=== PATIENT | female | born 1985 | race Caucasian/White ===

== ENCOUNTER 2016-10-09 11:06 | Emergency (ER) | payer BC ==
[~2016-10-09] VITALS: Ht 170.2 cm; Wt 84.3 kg
[~2016-10-09 11:06] MED LIST: BUPR300T59 PO; MESA800T PO; OXYC1TAB11 PO
[2016-10-09 11:09] VITALS: Ht 170.2 cm; Wt 84.3 kg
--- OUTSIDE RECORDS SUMMARY | 2016-10-09 11:11 | XMS REPORT ---
Author Author [place]/[facility], Via [facility] - Organization Unknown Address Unknown Phone Unavailable Allergies, Adverse Reactions, Alerts * Dilaudid causes Moderate Hysterical (crazy) reaction. * peanut (as Food allergen) causes Adverse Reaction. * peanut causes Adverse Reaction. * ibuprofen causes Adverse Reaction. * No Latex Allergy. * No IV Contrast Allergy. Problems * Abdominal Pain* Status:Active. * Fluid Volume Disorder* Status:Active. * Knowledge Low Level* Status:Active. Procedures No relevant procedures performed. Medication Medication reconciliation has not been performed. Results LAB--BEDSIDE TESTING from 03/28/2013 1:46 PMPregnancy Screen, Urine NPT Negative LAB--CHEMISTRY from 03/28/2013 1:39 PMAnion Gap 8 (3-20 ) Albumin 4.2 g/dL (3.5-4.8 g/dL) Alkaline Phosphatase 72 U/L (26-104 U/L) ALT (SGPT) 22 U/L (14-54 U/L) AST (SGOT) 17 U/L (15-41 U/L) Bilirubin Total 0.7 mg/dL (0.2-1.2 mg/dL) BUN 5 mg/dL (4-20 mg/dL) Calcium 9.6 mg/dL (8.6-10.0 mg/dL) Chloride 106 mEq/L (99-109 mEq/L) CO2 23 mEq/L (22-32 mEq/L) Creatinine 0.79 mg/dL (0.44-1.03 mg/dL) eGFR >60 (>60- ) Globulin 3.1 g/dL (1.9-4.3 g/dL) Glucose 93 mg/dL (70-100 mg/dL) Potassium 3.8 mEq/L (3.6-5.1 mEq/L) Sodium 137 mEq/L (136-144 mEq/L) Protein 7.3 g/dL (6.1-7.9 g/dL) Lipase 29 U/L (8-48 U/L) LAB--HEMATOLOGY from 03/28/2013 1:39 PMAbsolute Basophils 0.02 THOUS (0.00-0.20 THOUS) Absolute Eosinophils 0.27 THOUS (0.00-0.50 THOUS) Absolute Lymphocytes 2.66 THOUS (0.80-3.30 THOUS) Absolute Monocytes 0.39 THOUS (0.30-1.00 THOUS) Absolute Neutrophils 5.91 THOUS (1.90-7.00 THOUS) HCT 41.6 % (37.0-47.0 %) HGB 13.9 g/dl (12.0-16.0 g/dl) MCH 28.5 pg (27.0-32.0 pg) MCHC 33.4 g/dL (32.0-36.0 g/dL) MCV 85.2 fL (82.0-99.0 fL) MPV 9.4 fL (9.4-12.4 fL) Platelet Count 350 K/uL (150-400 K/uL) RBC 4.88 M/uL (4.00-5.20 M/uL) RDW 14.8 % H (11.5-14.5 %) WBC 9.3 K/uL (4.8-10.8 K/uL) Basophils 0 % (0-2 %) Eosinophils 3 % (0-4 %) Immature Granulocytes 0.1 % (0.0-1.0 %) Lymphocytes 29 % (20-46 %) Monocytes 4 % (4-11 %) Nucleated RBC Automated 0.0 /100 WBC (0 /100 WBC) Neutrophils 64 % (51-75 %) LAB--URINE TESTS from 03/28/2013 1:39 PMAppearance Clear Bilirubin Negative (Negative ) Blood Negative (Negative ) Color Lt Yellow Glucose Negative (Negative ) Ketones, Urine Negative (Negative ) Leukocytes Esterase Pos 1+ A (Negative ) Nitrites Negative (Negative ) pH, Urine 5.0 (5.0-8.0 ) Protein Negative (Negative ) Specific [place] 1.015 (1.003-1.030 ) Collection Type: Clean Catch Urobilinogen Negative mg/dL (-<1.0 mg/dL) Bacteria Rare Epithelial Cells 5-10 /HPF Mucus Present RBC 0-2 /HPF (0-2 /HPF) WBC 2-5 /HPF (0-4 /HPF)
--- OUTSIDE RECORDS SUMMARY | 2016-10-09 11:11 | XMS REPORT ---
Author Author [place]/[facility], Via [facility] - Organization Unknown Address Unknown [...] Status:Active. Procedures No relevant procedures performed. Medication It is the responsibility of the patient or patient outside dealer sales representative to confirm the list of medications with either the patient's personal care provider or the patient's follow-up care provider to ensure the patient has an appropriate list of medications to take at home. Discharge medications* HYDROcodone-acetaminophen 5 mg-500 mg Tablet, Ordered By : Nader Farris Directions: 1-2 TABS oral every four hours PRN PAIN Additional Instructions: USE FIRST * predniSONE 20 mg Tablet, Ordered By: Nader Farris Directions: 3 tablets oral daily every morning * regular diet * activity as tolerated * Follow up with Dr. Pedraza next on 02/14/2013 * No driving while on narcotics Stopped medications* None Results LAB--CHEMISTRY from 02/02/2013 6:30 AMAnion Gap 11 (3-20 ) Albumin 2.7 g/dL L (3.5-4.8 g/dL) BUN 4 mg/dL (4-20 mg/dL) Calcium 8.4 mg/dL L (8.6-10.0 mg/dL) Chloride 102 mEq/L (99-109 mEq/L) CO2 22 mEq/L (22-32 mEq/L) Creatinine 1.15 mg/dL H (0.44-1.03 mg/dL) eGFR 56 A (>60- ) Glucose 99 mg/dL (70-100 mg/dL) Potassium 3.2 mEq/L L (3.6-5.1 mEq/L) Magnesium 1.7 mg/dL L (1.8-2.5 mg/dL) Sodium 135 mEq/L L (136-144 mEq/L) Phosphorus 3.9 mg/dL (2.4-4.7 mg/dL) LAB--CHEMISTRY from 02/03/2013 6:01 AMAnion Gap 7 (3-20 ) Albumin 2.3 g/dL L (3.5-4.8 g/dL) BUN 3 mg/dL L (4-20 mg/dL) Calcium 8.0 mg/dL L (8.6-10.0 mg/dL) Chloride 104 mEq/L (99-109 mEq/L) CO2 22 mEq/L (22-32 mEq/L) Creatinine 0.97 mg/dL (0.44-1.03 mg/dL) eGFR >60 (>60- ) Glucose 92 mg/dL (70-100 mg/dL) Potassium 3.2 mEq/L L (3.6-5.1 mEq/L) Magnesium 1.9 mg/dL (1.8-2.5 mg/dL) Sodium 133 mEq/L L (136-144 mEq/L) Phosphorus 2.7 mg/dL (2.4-4.7 mg/dL) LAB--CHEMISTRY from 02/04/2013 5:02 AMAnion Gap 9 (3-20 ) Albumin 2.3 g/dL L (3.5-4.8 g/dL) BUN 1 mg/dL L (4-20 mg/dL) Calcium 8.0 mg/dL L (8.6-10.0 mg/dL) Chloride 102 mEq/L (99-109 mEq/L) CO2 23 mEq/L (22-32 mEq/L) Creatinine 0.86 mg/dL (0.44-1.03 mg/dL) eGFR >60 (>60- ) Glucose 108 mg/dL H (70-100 mg/dL) Potassium 3.4 mEq/L L (3.6-5.1 mEq/L) Magnesium 2.0 mg/dL (1.8-2.5 mg/dL) Sodium 134 mEq/L L (136-144 mEq/L) Phosphorus 2.4 mg/dL (2.4-4.7 mg/dL) LAB--HEMATOLOGY from 02/02/2013 6:30 AMHCT 35.2 % L (37.0-47.0 %) HGB 11.5 g/dl L (12.0-16.0 g/dl) MCH 27.2 pg (27.0-32.0 pg) MCHC 32.7 g/dL (32.0-36.0 g/dL) MCV 83.2 fL (82.0-99.0 fL) MPV 9.9 fL (9.4-12.4 fL) Platelet Count 276 K/uL (150-400 K/uL) RBC 4.23 M/uL (4.00-5.20 M/uL) RDW 13.4 % (11.5-14.5 %) WBC 17.3 K/uL H (4.8-10.8 K/uL) LAB--HEMATOLOGY from 02/03/2013 6:01 AMHCT 31.1 % L (37.0-47.0 %) HGB 10.1 g/dl L (12.0-16.0 g/dl) MCH 27.2 pg (27.0-32.0 pg) MCHC 32.5 g/dL (32.0-36.0 g/dL) MCV 83.6 fL (82.0-99.0 fL) MPV 9.4 fL (9.4-12.4 fL) Platelet Count 249 K/uL (150-400 K/uL) RBC 3.72 M/uL L (4.00-5.20 M/uL) RDW 13.6 % (11.5-14.5 %) WBC 16.6 K/uL H (4.8-10.8 K/uL) LAB--HEMATOLOGY from 02/04/2013 5:02 AMHCT 32.8 % L (37.0-47.0 %) HGB 10.6 g/dl L (12.0-16.0 g/dl) MCH 26.6 pg L (27.0-32.0 pg) MCHC 32.3 g/dL (32.0-36.0 g/dL) MCV 82.4 fL (82.0-99.0 fL) MPV 9.1 fL L (9.4-12.4 fL) Platelet Count 268 K/uL (150-400 K/uL) RBC 3.98 M/uL L (4.00-5.20 M/uL) RDW 13.3 % (11.5-14.5 %) WBC 18.2 K/uL H (4.8-10.8 K/uL) LAB--HEMATOLOGY from 02/05/2013 1:35 PMHCT 30.1 % L (37.0-47.0 %) HGB 10.0 g/dl L (12.0-16.0 g/dl) MCH 27.2 pg (27.0-32.0 pg) MCHC 33.2 g/dL (32.0-36.0 g/dL) MCV 81.8 fL L (82.0-99.0 fL) MPV 9.0 fL L (9.4-12.4 fL) Platelet Count 271 K/uL (150-400 K/uL) RBC 3.68 M/uL L (4.00-5.20 M/uL) RDW 13.6 % (11.5-14.5 %) WBC 13.6 K/uL H (4.8-10.8 K/uL) LAB--HEMATOLOGY from 02/06/2013 5:20 AMHCT 29.3 % L (37.0-47.0 %) HGB 9.7 g/dl L (12.0-16.0 g/dl) MCH 27.0 pg (27.0-32.0 pg) MCHC 33.1 g/dL (32.0-36.0 g/dL) MCV 81.6 fL L (82.0-99.0 fL) MPV 9.5 fL (9.4-12.4 fL) Platelet Count 286 K/uL (150-400 K/uL) RBC 3.59 M/uL L (4.00-5.20 M/uL) RDW 13.8 % (11.5-14.5 %) WBC 12.1 K/uL H (4.8-10.8 K/uL) LAB--MICROBIOLOGY from 02/03/2013 9:00 PMUrine Culture Source: Urine Collected: 02/03/13 21:00 Site: Clean Catch Received : 02/03/13 21:31 Order#: [id number] Urine Culture FINAL 02/05/13 09:14 Mixed frank indicative of vaginal and/or skin contamination MARIA FOR RESULTS: * - NEW RESULT - RESULT WAS MODIFIED AFTER FINAL STATUS SET LAB--MICROBIOLOGY from 02/04/2013 1:50 PMOva And Parasite Exam Source: Stool Collected: 02/04/13 13:50 Site: Received : 02/04/13 14:00 Order#: [id number] Ova and Parasite Exam FINAL 02/05/13 11:34 S White blood cells present No ova or parasites observed . Specimen examined by formalin concentration procedure and trichrome-stained smear. S: Performed at:[place], [place] CLIA#[id number] MARIA FOR RESULTS: * - NEW RESULT - RESULT WAS MODIFIED AFTER FINAL STATUS SET C. difficile Toxin B Source: Stool Collected: 11/12 13:50 Site: Received : 02/04/13 14:01 Order#: [id number] C. difficile toxin B by PCR FINAL 02/04/13 21:08 Negative - C. difficile toxin B not detected by PCR MARIA FOR RESULTS: * - NEW RESULT - RESULT WAS MODIFIED AFTER FINAL STATUS SET Fecal Leucocyte Stain (Stool WBC) A Source: Stool Collected: 02/04/13 13:50 Site: Received : 02/04/13 14:01 Order#: [id number] Fecal Leucocyte Stain FINAL 02/04/13 14:12 Many white blood cells present MARIA FOR RESULTS: * - NEW RESULT - RESULT WAS MODIFIED AFTER FINAL STATUS SET LAB--MICROBIOLOGY from 02/04/2013 8:45 PMStool Culture and Shiga Toxin Test Source: Stool Collected: 02/04/13 20:45 Site: Received : 02/04/13 20:54 Order#: [id number] Shiga toxin test FINAL 02/06/13 08:11 Unable to perform. No growth in enrichment broth. Stool Culture FINAL 02/07/13 10:08 No Salmonella, Shigella or Campylobacter isolated Normal frank is altered No aerobic gram negative bacilli isolated MARIA FOR RESULTS: * - NEW RESULT - RESULT WAS MODIFIED AFTER FINAL STATUS SET LAB--URINE TESTS from 02/03/2013 9:00 PMAppearance Sl Cloudy Bilirubin Negative (Negative ) Blood Pos 3+ A (Negative ) Color Lt Yellow Glucose Negative (Negative ) Ketones, Urine Pos 3+ A (Negative ) Leukocytes Esterase Negative (Negative ) Nitrites Negative (Negative ) pH, Urine 5.0 (5.0-8.0 ) Protein Pos 1+ A (Negative ) Specific [place] 1.015 (1.003-1.030 ) Collection Type: Clean Catch Urobilinogen Negative mg/dL (-<1.0 mg/dL) Bacteria Occasional A Epithelial Cells 5-10 /HPF Mucus Present RBC >50 /HPF A (0-2 /HPF) WBC 0-2 /HPF (0-4 /HPF)
--- OUTSIDE RECORDS SUMMARY | 2016-10-09 11:12 | XMS REPORT ---
Author Author [place]/[facility], Via [facility] - Organization Unknown Address Unknown Phone Unavailable [...] Medication reconciliation has not been performed. Results LAB--CHEMISTRY from 05/10/2013 12:01 PMAnion Gap 7 (3-20 ) Albumin 3.8 g/dL (3.5-4.8 g/dL) Alkaline Phosphatase 63 U/L (26-104 U/L) ALT (SGPT) 14 U/L (14-54 U/L) AST (SGOT) 15 U/L (15-41 U/L) Bilirubin Total 0.4 mg/dL (0.2-1.2 mg/dL) BUN 7 mg/dL (4-20 mg/dL) Calcium 9.0 mg/dL (8.6-10.0 mg/dL) Chloride 110 mEq/L H (99-109 mEq/L) CO2 23 mEq/L (22-32 mEq/L) Creatinine 0.87 mg/dL (0.44-1.03 mg/dL) eGFR >60 (>60- ) Globulin 2.6 g/dL (1.9-4.3 g/dL) Glucose 86 mg/dL (70-100 mg/dL) Potassium 3.7 mEq/L (3.6-5.1 mEq/L) Sodium 140 mEq/L (136-144 mEq/L) Protein 6.4 g/dL (6.1-7.9 g/dL) LAB--HEMATOLOGY from 05/10/2013 12:01 PMAbsolute Basophils 0.03 THOUS (0.00-0.20 THOUS) Absolute Eosinophils 0.18 THOUS (0.00-0.50 THOUS) Absolute Lymphocytes 2.42 THOUS (0.80-3.30 THOUS) Absolute Monocytes 0.50 THOUS (0.30-1.00 THOUS) Absolute Neutrophils 7.13 THOUS H (1.90-7.00 THOUS) HCT 37.5 % (37.0-47.0 %) HGB 12.3 g/dl (12.0-16.0 g/dl) MCH 28.6 pg (27.0-32.0 pg) MCHC 32.8 g/dL (32.0-36.0 g/dL) MCV 87.2 fL (82.0-99.0 fL) MPV 9.9 fL (9.4-12.4 fL) Platelet Count 317 K/uL (150-400 K/uL) RBC 4.30 M/uL (4.00-5.20 M/uL) RDW 14.2 % (11.5-14.5 %) WBC 10.3 K/uL (4.8-10.8 K/uL) Basophils 0 % (0-2 %) Eosinophils 2 % (0-4 %) Immature Granulocytes 0.2 % (0.0-1.0 %) Lymphocytes 24 % (20-46 %) Monocytes 5 % (4-11 %) Nucleated RBC Automated 0.0 /100 WBC (0 /100 WBC) Neutrophils 69 % (51-75 %) LAB--URINE TESTS from 05/10/2013 1:43 PMAppearance Clear Bilirubin Negative (Negative ) Blood Negative (Negative ) Color Lt Yellow Glucose Negative (Negative ) Ketones, Urine Negative (Negative ) Leukocytes Esterase Trace A (Negative ) Nitrites Negative (Negative ) pH, Urine 5.0 (5.0-8.0 ) Protein Negative (Negative ) Specific [place] 1.009 (1.003-1.030 ) Collection Type: Clean Catch Urobilinogen Negative mg/dL (-<1.0 mg/dL) Bacteria Occasional A Epithelial Cells 2-5 /HPF Mucus Present RBC 0-2 /HPF (0-2 /HPF) WBC 2-5 /HPF (0-4 /HPF)
--- OUTSIDE RECORDS SUMMARY | 2016-10-09 11:12 | XMS REPORT | Continuity of Care Document ---
Author Author [facility] Organization [facility] Address Unknown Phone Unavailable Support Name Relationship Address Phone BEULAH LOUIS MD Caregiver [facility] [address] [place] [address] Unavailable SARBJIT MONTE MD Caregiver [address] [place] [phone] TORO SIMMONS Next Of Kin [address] [place] [address] Insurance Providers Payer Name Policy Number Subscriber Name Relationship Self Pay Troy Aviles 16 Self Advance Directives Directive Response Recorded Date/Time Advanced Directives Type None 09/19/14 12:40am Problems Medical Problems Problem Onset Date Status Ulcerative colitis Unknown Active Ulcerative colitis Unknown Active Ulcerative colitis Unknown Active Atrial fibrillation Unknown Active Chronic abdominal pain Unknown Active Methamphetamine use Unknown Active Ulcerative colitis Unknown Active Cellulitis Unknown Active Cellulitis Unknown Active Abscess Unknown Active Migraine Unknown Active Migraine Unknown Active Migraine equivalent Unknown Active Migraine equivalent Unknown Active Ulcerative colitis Unknown Active Atrial fibrillation Unknown Active Abdominal pain Unknown Active Atrial fibrillation Unknown Active Chest pain Unknown Active Anxiety Unknown Active Dyspnea Unknown Active Ulcerative colitis Unknown Active Abdominal pain Unknown Active Anxiety Unknown Active Chest pain Unknown Active Ruptured ovarian cyst Unknown Active Abdominal pain Unknown Active Medications Medication Dose Route Sig Days/Qty Instructions Order Date Discontinued Date Status [None] 05/13/08 11/09/09 Discontinued Albuterol Sulfate 8.5 Gm IH NEEDED 04/26/10 11/06/10 Discontinued Prednisone NEEDED 04/26/10 11/06/10 Discontinued [No Routine Meds] 02/27/14 03/10/14 Discontinued Prochlorperazine Maleate 10 Mg PO FOUR TIMES DAILY 30 Qty 02/27/1402/13 Discontinued Sumatriptan Succinate 1 Tab PO EVERY TWO HOURS For HEADACHE 20 Qty 1 PO Q 2 HRS PRN HEADACHE UP TO MAX OF 4 TABS IN 24 HOURS 05/18/14 Active Diltiazem HCl 120 Mg PO DAILY 20 Qty 07/23/14 Active Lorazepam 1 Mg PO Q4H For ANXIETY/AGITATION 15 Qty 07/31/14 Active Sulfasalazine Unknown Dose PO TWICE A DAY 08/19/14 Active Acetaminophen Unknown Dose PO NEEDED 08/19/14 Active Levothyroxine Sodium Unknown Dose PO BEFORE BREAKFAST Once daily before breakfast. 08/19/14 Active Prochlorperazine Maleate 1 Tab PO Q8H @ 0100/0900/1700 PRN VOMITING 10 Qty 08/19/14 Active Prednisone 10 Mg PO DAILY 30 Qty x 3 days 08/19/14 Active Meloxicam 15 Mg PO DAILY For PAIN 30 Qty 09/19/14 Active Social History Social History Problem Response Recorded Date/Time Hx Substance Use Y PAST PT REPORTS 09/19/2014 12:52am Hx Alcohol Use No 09/19/2014 12:52am Tobacco Usage smoke 07/23/2014 12:31pm Query Response Start Date Stop Date Smoking Status Current every day smoker Hospital Discharge Instructions No hospital discharge instructions. Plan of Care No plan of care. Functional Status Query Response Date Recorded Physical Hygiene Self September 19, 2014 12:52am Disabilities None September 19, 2014 12:52am Devices Used None September 19, 2014 12:52am Dressing Self September 19, 2014 12:52am Ambulation Self January 05, 2014 9:04pm Diet Self September 19, 2014 12:52am Mental Status Alert Oriented January 05, 2014 9:04pm Disabilities None September 19, 2014 12:52am Devices Used None September 19, 2014 12:52am Physical Hygiene Self September 19, 2014 12:52am Dressing Self September 19, 2014 12:52am Ambulation Self January 05, 2014 9:04pm Diet Self September 19, 2014 12:52am Allergies, Adverse Reactions, Alerts Allergen Type Severity Reaction Status Last Updated Ibuprofen Adverse Reaction Mild BLEEDING Active 09/19/14 Peanut Oil Allergy Severe ANAPHYLACTIC REACTION Active 09/19/14 Ketorolac Adverse Reaction Intermediate ULCERS/INCREASED BLEEDING Active 09/19/14 Tomato Allergy Unknown Active 09/19/14 Immunizations Name Given Type Hx Influenza Vaccination No Historical Hx Tetanus, Diptheria, Pertussis Y 2011 Historical Hx Influenza Vaccination No Historical Hx Tetanus, Diptheria, Pertussis Y 2011 Historical Vital Signs Acute Vital Signs Vital Response Date/Time Temperature (Fahrenheit) 97.0 deg F (96.8 - 99.1) Temperature (Calculated Celsius) 36.32924 degrees C (36.0 - 37.3) Pulse Rate (adult) 72 bpm (60 - 100) Respiratory Rate 20 breaths/min (10 - 20) O2 Sat by Pulse Oximetry 100 % (90 - 100) Blood Pressure 107/62 mm Hg Height 5 ft 6 in Weight 184 lb Body Mass Index 29.0 kg/m^2 Results Test Source Date Result Interp. Ref. Range Comments Alanine Aminotransferase (ALT/SGPT) August 28, 2014 10:05am 37 U/L N 9 -52 Albumin August 28, 2014 10:05am 4.4 G/DL N 3.5-5.0 Albumin/Globulin Ratio August 28, 2014 10:05am 1.4 RATIO N 1.1-2.2 Alkaline Phosphatase August 28, 2014 10:05am 77 U/L N 38-126 Amylase Level August 19, 2014 9:06pm 82 U/L N 30-110 Anion Gap August 28, 2014 10:05am 13 MEQ/L N 5-15 Anti-Nuclear Antibody (LAB) March 01, 2008 12:35am Sent out - Arterial Blood Base Excess May 13, 2008 4:15pm -1.7 MMOL/L N -2.0- 2.0 Is the patient on room air? YWhat is the Source? (Liters or Percent) ROOM AIR Arterial Blood HCO3 May 13, 2008 4:15pm 22 MEQ/L N 22-26 Is the patient on room air? YWhat is the Source? (Liters or Percent) ROOM AIR Arterial Blood Oxygen Content May 13, 2008 4:15pm Not Performed - Arterial Blood Partial Pressure CO2 May 13, 2008 4:15pm 32 MMHG L 34-45 Is the patient on room air? YWhat is the Source? (Liters or Percent) ROOM AIR Arterial Blood Total CO2 May 13, 2008 4:15pm 22.7 MEQ/L L 23-27 Is the patient on room air? YWhat is the Source? (Liters or Percent) ROOM AIR Arterial Blood pH May 13, 2008 4:15pm 7.440 N 7.350-7.450 Is the patient on room air? YWhat is the Source? (Liters or Percent) ROOM AIR Arterial Blood pO2 at Patient Temp May 13, 2008 4:15pm 84 MMHG N 80 -100 Is the patient on room air? YWhat is the Source? (Liters or Percent) ROOM AIR Aspartate Amino Transf (AST/SGOT) August 28, 2014 10:05am 18 U/L N 14- 36 BUN/Creatinine Ratio August 28, 2014 10:05am 11 RATIO N 6-26 Band Neutrophils # July 30, 2014 10:05pm 0.5 T/MM3 - Band Neutrophils % July 30, 2014 10:05pm 3.0 % N 0-6 Basophils # (Auto) August 28, 2014 10:05am 0.1 T/MM3 N 0-0.2 Basophils # (Manual) July 30, 2014 10:05pm 0.2 T/MM3 N 0-0.2 Basophils % (Manual) July 30, 2014 10:05pm 1.0 % N 0-2 Basophils (%) (Auto) August 28, 2014 10:05am 0.4 % N 0-2 Blood Gas Oxygen Saturation May 13, 2008 4:15pm 97.0 % N 95.0-98.0 Is the patient on room air? YWhat is the Source? (Liters or Percent) ROOM AIR Blood Gas Tidal Volume May 13, 2008 4:15pm Not Performed 0-1200 Blood Gas Vent Rate May 13, 2008 4:15pm Not Performed 0-30 Blood Urea Nitrogen August 28, 2014 10:05am 9.0 MG/DL N 7-17 Calcium Level August 28, 2014 10:05am 9.7 MG/DL N 8.4-10.2 Calculated Osmolality August 28, 2014 10:05am 276 MOSM/KG N 261-280 Carbon Dioxide Level August 28, 2014 10:05am 23 MEQ/L N 22-30 Chemistry Specimen Hemolysis August 28, 2014 10:05am < 15 0-25 0-25 : No Hemolysis.26-70: Slight Hemolysis - can falsely elevate K and Urine Protein. 71-285: Moderate Hemolysis - can falsely elevate K, Troponin I, CA 19-9, PTH, CSF GLucose, and Urine Protein, and can falsely decrease Phenytoin. 286-999: Gross Hemolysis - can falsely elevate K, Troponin I, CA 19-9, PTH, CSF Glucose, and Urine Protine, and can falsely decrease Phenytoin. Recommend specimen recollection. Chlamydia Direct Antigen Assay October 31, 2008 11:38am Negative - Chloride Level August 28, 2014 10:05am 108 MEQ/L H 98-107 Creatinine August 28, 2014 10:05am 0.8 MG/DL N 0.7-1.2 Eosinophils # (Auto) August 28, 2014 10:05am 0.2 T/MM3 N 0-0.5 Eosinophils (%) (Auto) August 28, 2014 10:05am 1.4 % N 0-4 Erythrocyte Sedimentation Rate December 19, 2008 9:17pm 8 MM/HR - Globulin August 28, 2014 10:05am 3.2 G/DL N 2.4-3.6 Glomerular Filtration Rate Calc August 28, 2014 10:05am 84 - Glucose Level August 28, 2014 10:05am 92 MG/DL N 65-110 Hematocrit August 28, 2014 10:05am 38.2 % N 36-46 Hemoglobin August 28, 2014 10:05am 12.4 GM/DL N 12-16 Icterus Index August 28, 2014 10:05am < 2 0-7 Immature Granulocyte # (Auto) August 28, 2014 10:05am 0.02 T/MM3 N 0.00-0.03 Immature Granulocyte % (Auto) August 28, 2014 10:05am 0.2 % N 0.0-0.5 Lab Scanned Report August 29, 2014 8:48am REFERENCE LAB - Lipase August 19, 2014 9:06pm 273 U/L N 23-300 Lymphocytes # (Auto) August 28, 2014 10:05am 2.5 T/MM3 N 1-4.8 Lymphocytes # (Manual) July 30, 2014 10:05pm 2.8 T/MM3 N 1-4.8 Lymphocytes % (Manual) July 30, 2014 10:05pm 16.0 % L 23-45 Lymphocytes (%) (Auto) August 28, 2014 10:05am 19.9 % L 23-45 Magnesium Level August 28, 2014 10:05am 2.0 MG/DL N 1.6-2.3 Mean Corpuscular Hemoglobin August 28, 2014 10:05am 27.6 UUG N 26-34 Mean Corpuscular Hemoglobin Concent August 28, 2014 10:05am 32.5 GM/DL N 31-37 Mean Corpuscular Volume August 28, 2014 10:05am 84.9 UM3 N 80-100 Mean Platelet Volume August 28, 2014 10:05am 9.3 UM3 L 9.4-12.4 Monocytes # (Auto) August 28, 2014 10:05am 0.5 T/MM3 N 0-0.8 Monocytes # (Manual) July 30, 2014 10:05pm 0.2 T/MM3 N 0-0.8 Monocytes % (Manual) July 30, 2014 10:05pm 1.0 % N 0-9.0 Monocytes (%) (Auto) August 28, 2014 10:05am 3.7 % N 0-9.0 Neutrophils # (Auto) August 28, 2014 10:05am 9.3 T/MM3 H 1.8-7.7 Neutrophils # (Manual) July 30, 2014 10:05pm 13.8 T/MM3 H 1.8-7.7 Neutrophils % (Manual) July 30, 2014 10:05pm 79.0 % H 33-66 Neutrophils (%) (Auto) August 28, 2014 10:05am 74.4 % H 33-66 Oxygen Delivery Method (LAB) May 13, 2008 4:15pm Room air - Is the patient on room air? YWhat is the Source? (Liters or Percent) ROOM AIR Platelet Count August 28, 2014 10:05am 370 T/MM3 N 130-400 Potassium Level August 28, 2014 10:05am 4.2 MEQ/L N 3.6-5 RDW Standard Deviation August 28, 2014 10:05am 44.0 FL N 36.9-50.2 Red Blood Count August 28, 2014 10:05am 4.50 M/MM3 N 4.00-5.20 Sodium Level August 28, 2014 10:05am 144 MEQ/L N 134-144 Thyroid Stimulating Hormone (TSH) August 28, 2014 10:05am 1.54 MIU/L N 0.47-4.68 Total Bilirubin August 28, 2014 10:05am 0.30 MG/DL N 0.20-1.30 Total Protein August 28, 2014 10:05am 7.6 G/DL N 6.3-8.2 Troponin I August 28, 2014 10:05am < 0.012 ng/ml 0-0.12 Turbidity August 28, 2014 10:05am < 20 0-20 Urinalysis Comment September 19, 2014 1:07am Microscopic not ind. - Has specimen been collected/obtained? Y Urine Amorphous Urates March 10, 2014 7:28pm Moderate - Has specimen been collected/obtained? Y Urine Bacteria March 10, 2014 7:28pm Trace H - Has specimen been collected/obtained? Y Urine Bilirubin September 19, 2014 1:07am Negative - Has specimen been collected/obtained? Y Urine Blood September 19, 2014 1:07am Trace-intact H - Has specimen been collected/obtained? Y Urine Collection Type September 19, 2014 1:07am Cleancatch-midstream - Has specimen been collected/obtained? Y Urine Color September 19, 2014 1:07am Yellow - Has specimen been collected/obtained? Y Urine Culture Indicated April 26, 2010 9:25am Cult not set up - Has specimen been collected/obtained? Y Urine Glucose (UA) September 19, 2014 1:07am Negative - Has specimen been collected/obtained? Y Urine Ketones September 19, 2014 1:07am Negative - Has specimen been collected/obtained? Y Urine Leukocyte Esterase September 19, 2014 1:07am Negative - Has specimen been collected/obtained? Y Urine Mucus March 10, 2014 7:28pm Present - Has specimen been collected/obtained? Y Urine Nitrite September 19, 2014 1:07am Negative - Has specimen been collected/obtained? Y Urine Protein September 19, 2014 1:07am Negative - Has specimen been collected/obtained? Y Urine RBC March 10, 2014 7:28pm 0-1 /HPF - Has specimen been collected/obtained? Y Urine Specific [place] September 19, 2014 1:07am >=1.030 H - Has specimen been collected/obtained? Y Urine Squamous Epithelial Cells March 10, 2014 7:28pm 0-5 - Has specimen been collected/obtained? Y Urine Transitional Epithelial Cells April 26, 2010 9:25am 1-3 /HPF - Has specimen been collected/obtained? Y Urine Turbidity September 19, 2014 1:07am Clear - Has specimen been collected/obtained? Y Urine Urobilinogen September 19, 2014 1:07am 0.2 EU/DL - Has specimen been collected/obtained? Y Urine WBC March 10, 2014 7:28pm 1-3 /HPF - Has specimen been collected/obtained? Y Urine pH September 19, 2014 1:07am 6.0 - Has specimen been collected/ obtained? Y White Blood Count August 28, 2014 10:05am 12.4 T/MM3 H 4.5-11.0 Wet Prep Cervix October 31, 2008 11:38am Gram Stain Hip, Non-Surgical Site-Right April 28, 2014 3:40pm Name: AVILESROSA ELENATROY A Unit #: [id number] : [id number] Sex: F Loc / Svc: ED DOS: 08/28/14 Signed Report #: [id number] DIAGNOSTIC IMAGING REPORT TYPE OF EXAM: CHEST, PA & LATERAL Dictated By: POP SAUCEDA MD INDICATION: ITS.REASON: CHEST PAIN CHEST 2-VIEWS UPRIGHT (PA & LAT) COMPARISON: July 30, 2014 FINDINGS: The lungs are clear without evidence of focal abnormal airspace opacity. There is no pleural effusion or pneumothorax. The heart size, mediastinal contours and pulmonary vascularity are within normal limits. There is no significant skeletal abnormality. IMPRESSION: No acute cardiopulmonary disease. . Procedures Procedure Status Date Provider(s) HYDRATE IV INFUSION ADD-ON completed 07/23/14 THER/PROPH/DIAG INJ IV PUSH completed 07/23/14 TX/PRO/DX INJ NEW DRUG ADDON completed 07/23/14 TX/PRO/DX INJ NEW DRUG ADDON completed 07/23/14 TX/PRO/DX INJ NEW DRUG ADDON completed 07/23/14 TX/PRO/DX INJ NEW DRUG ADDON completed 07/23/14 TX/PRO/DX INJ NEW DRUG ADDON completed 07/23/14 HYDRATE IV INFUSION ADD-ON completed 07/30/14 HYDRATE IV INFUSION ADD-ON completed 07/30/14 THER/PROPH/DIAG INJ IV PUSH completed 07/30/14 TX/PRO/DX INJ NEW DRUG ADDON completed 07/30/14 TX/PRO/DX INJ NEW DRUG ADDON completed 07/30/14 TX/PRO/DX INJ SAME DRUG 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 completed 07/30/14 HYDRATE IV INFUSION ADD-ON completed 08/19/14 THER/PROPH/DIAG INJ IV PUSH completed 08/19/14 TX/PRO/DX INJ NEW DRUG ADDON completed 08/19/14 TX/PRO/DX INJ NEW DRUG ADDON completed 08/19/14 TX/PRO/DX INJ NEW DRUG ADDON completed 08/19/14 TX/PRO/DX INJ NEW DRUG ADDON completed 08/19/14 TX/PRO/DX INJ NEW DRUG ADDON completed 08/19/14 HYDRATE IV INFUSION ADD-ON completed 08/28/14 THER/PROPH/DIAG INJ IV PUSH completed 08/28/14 TX/PRO/DX INJ NEW DRUG ADDON completed 08/28/14 Encounters Encounter Location Date/Time Departed Emergency Room [facility] 09/19/14 12:32am Departed Emergency Room [facility] 08/28/14 9:36am Departed Emergency Room [facility] 08/19/14 7:04pm Departed Emergency Room [facility] 07/30/14 9:52pm Departed Emergency Room [facility] 07/23/14 11:53am Departed Emergency Room [facility] 07/15/14 3:56pm Recent Diagnosis
--- OUTSIDE RECORDS SUMMARY | 2016-10-09 11:12 | XMS REPORT | Referral Summary ---
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 Discharge Disposition: Left Without Being Seen Vital Signs Most recent to 1 oldest [Reference Range]: Temperature Oral 36.7 degC [35.8-37.3 degC] (05/15/16 8:47 PM) Peripheral Pulse 95 bpm Rate [60-100 bpm] (05/15/16 8:47 PM) Respiratory Rate 16 br/min [14-20 br/min] (05/15/16 8:47 PM) Blood Pressure 120/84 mmHg [90-140/60-90 mmHg] (05/15/16 8:47 PM) SpO2 100 % (05/15/16 8:47 PM) Problem List Condition Effective Dates Status Health Status Informant Abdominal Active pain(Confirmed) Acute Active pain(Confirmed) Anxiety(Confirmed)1 Active Chronic abdominal Active pain(Confirmed) Chronic abdominal Active pain(Confirmed) Chronic abdominal Active pain(Confirmed) Constipation(Confirm Active ed) Diarrhea(Confirmed) Active patient Migraine(Confirmed) Active patient Obesity(Confirmed) Active patient Tissue perfusion Active alteration(Confirmed )2 Ulcerative Active patient colitis(Confirmed) Ulcerative Active patient colitis(Confirmed) 1Problem added automatically by system based on initiation of Anxiety Plan of Care 2Problem added automatically by system based on initiation of Tissue Perfusion Cerebral Plan of Care Allergies, Adverse Reactions, Alerts Substance Reaction Severity Status ibuprofen Adverse Reaction Active Peanuts Adverse Reaction Active Toradol nose bleed Active Medications Asacol HD 800 mg, Oral, TID, 0 Refill(s) Start Date: 11/04/14 Status: Ordered Asacol HD 800 mg oral delayed release tablet 800 mg 1 tabs, Oral, TID, # 90 tabs, 0 Refill(s) Start Date: 02/13/16 Status: Ordered Cardizem 30 mg oral tablet 30 mg 1 tabs, Oral, TID, # 90 tabs, 0 Refill(s) Start Date: 02/13/16 Status: Ordered Colazal mg, Oral, TID, 0 Refill(s) Start Date: 07/13/15 Status: Ordered Communication Patient transferred from [facility]. Refer to Acute Care [facility] for last doses., 0 Refill(s) Start Date: 03/24/15 Status: Ordered HYDROcodone-acetaminophen 5 mg-325 mg oral tablet 1 tabs, Oral, QID, Pain Moderate (4-6), # 12 tabs, 0 Refill(s) Start Date: 02/10/16 Status: Ordered levothyroxine 88 mcg, Oral, Daily, 0 Refill(s) Start Date: 03/24/15 Status: Ordered Levsin SL 0.125 mg sublingual tablet 0.125 mg 1 tabs, SubLingual, q4hr, Abdominal Cramping, # 30 tabs, 0 Refill(s) Start Date: 12/21/15 Status: Ordered multivitamin 1 tabs, Oral, Daily, 0 Refill(s) Start Date: 03/24/15 Status: Ordered ondansetron 4 mg oral tablet 4 mg 1 tabs, Oral, q4hr, Nausea or Vomiting, # 12 tabs, 0 Refill(s) Start Date: 02/10/16 Status: Ordered prochlorperazine 10 mg, Oral, TID, 0 Refill(s) Start Date: 03/24/15 Status: Ordered Tums 2,000 mg, Chewed, QID, 0 Refill(s) Start Date: 03/24/15 Status: Ordered Tylenol Extra Strength 1,000 mg, Oral, q6hr, as needed for pain, 0 Refill(s) Start Date: 03/24/15 Status: Ordered Results No data available for this section Immunizations Vaccine Date Refusal Reason tetanus-diphth toxoids (Td) adult/adol 12/01/05 Procedures Procedure Date Related Diagnosis Body Site section Colonoscopy Shoulder repair R side Tonsillectomy and adenoidectomy Tubal ligation Social History Social History Type Response Smoking Status Current every day smoker; Type: Cigarettes; Tobacco use per day: 1 Pack Assessment and Plan No data available for this section
--- OUTSIDE RECORDS SUMMARY | 2016-10-09 11:12 | XMS REPORT | Continuity of Care Document ---
Author Author [facility] Organization [facility] Address Unknown Phone Unavailable Support Name Relationship Address Phone LONNY SEO MD Caregiver [address] [place] [address] SARBJIT MONTE MD Caregiver [address] [place], [place] [phone] DEBRAFADY BAUTISTA Next Of Kin [address] [place], [place] [id number] Insurance Providers Payer Name Policy Number Subscriber Name Relationship Self Pay Troy Aviles 16 Self Problems Medical Problems Problem Onset Date Status Ulcerative colitis Unknown Active Ulcerative colitis Unknown Active Ulcerative colitis Unknown Active Atrial fibrillation Unknown Active Chronic abdominal pain Unknown Active Methamphetamine use Unknown Active Ulcerative colitis Unknown Active Cellulitis Unknown Active Cellulitis Unknown Active Medications Medication Dose Route Sig Days/Qty Instructions Order Date Discontinued Date Status [None] 05/13/08 11/09/09 Discontinued Albuterol Sulfate 8.5 Gm IH NEEDED 04/26/10 11/06/10 Discontinued Prednisone NEEDED 04/26/10 11/06/10 Discontinued [No Routine Meds] 02/27/14 03/10/14 Discontinued Prochlorperazine Maleate 10 Mg PO FOUR TIMES DAILY 30 Qty 02/27/1402/13 Discontinued Mesalamine 800 Mg PO FOUR TIMES DAILY 03/10/14 Active Prochlorperazine Maleate 10 Mg PO NEEDED Take 1 tablet, by mouth, 4 times a day. 03/10/14 Active Hydrocodone/Acetaminophen 1 Tab PO NEEDED For PAIN 03/10/14 Active Sulfamethoxazole/Trimethoprim 1 Tab PO TWICE A DAY 14 Qty 04/28/14 Active Cephalexin 500 Mg PO THREE TIMES A DAY 21 Qty 04/28/14 Active Social History Social History Problem Response Recorded Date/Time Smoking Status Current every day smoker 01/05/2014 9:04pm Hx Substance Use Y 02/26/14 04/28/2014 2:55pm Hospital Discharge Instructions No hospital discharge instructions. Plan of Care No plan of care. Functional Status Query Response Date Recorded Physical Hygiene Self April 28, 2014 2:55pm Disabilities None April 28, 2014 2:55pm Devices Used None April 28, 2014 2:55pm Dressing Self April 28, 2014 2:55pm Ambulation Self January 05, 2014 9:04pm Diet Self April 28, 2014 2:55pm Mental Status Alert Oriented January 05, 2014 9:04pm Disabilities None April 28, 2014 2:55pm Devices Used None April 28, 2014 2:55pm Physical Hygiene Self April 28, 2014 2:55pm Dressing Self April 28, 2014 2:55pm Ambulation Self January 05, 2014 9:04pm Diet Self April 28, 2014 2:55pm Allergies, Adverse Reactions, Alerts Allergen Type Severity Reaction Status Last Updated Ibuprofen Adverse Reaction Mild BLEEDING Active 04/28/14 Peanut Oil Allergy Severe ANAPHYLACTIC REACTION Active 04/28/14 Tomato Allergy Unknown Active 04/28/14 Immunizations Name Given Type Hx Tetanus, Diptheria, Pertussis Y PT STATES "WITHIN THE LAST 5 YEARS" Historical Hx Tetanus, Diptheria, Pertussis Y PT STATES "WITHIN THE LAST 5 YEARS" Historical Vital Signs Acute Vital Signs Vital Response Date/Time Temperature (Fahrenheit) 96.9 deg F (96.8 - 99.1) Temperature (Calculated Celsius) 36.61352 degrees C (36.0 - 37.3) Pulse Rate (adult) 89 bpm (60 - 100) Respiratory Rate 16 breaths/min (10 - 20) O2 Sat by Pulse Oximetry 100 % (90 - 100) Blood Pressure 121/64 mm Hg Height (Feet) 5 feet Height (Inches) 6 inches Weight (Kilograms) 88 kg Body Mass Index (BMI) 31.0 Results Test Source Date Result Interp. Ref. Range Comments Alanine Aminotransferase (ALT/SGPT) March 10, 2014 6:45pm 26 U/L N 9 -52 Albumin March 10, 2014 6:45pm 4.6 G/DL N 3.5-5.0 Albumin/Globulin Ratio March 10, 2014 6:45pm 1.7 RATIO N 1.1-2.2 Alkaline Phosphatase March 10, 2014 6:45pm 78 U/L N 38-126 Anion Gap March 10, 2014 6:45pm 15 MEQ/L N 5-15 Arterial Blood Base Excess May 13, 2008 [...] Percent) ROOM AIR Aspartate Amino Transf (AST/SGOT) March 10, 2014 6:45pm 15 U/L N 14- 36 BUN/Creatinine Ratio March 10, 2014 6:45pm 13 RATIO N 6-26 Basophils # (Auto) March 10, 2014 6:45pm 0.1 T/MM3 N 0-0.2 Basophils (%) (Auto) March 10, 2014 6:45pm 0.4 % N 0-2 Blood Gas Oxygen Saturation May 13, 2008 4:15pm 97.0 % N 95.0-98.0 Is the patient on room air? YWhat is the Source? (Liters or Percent) ROOM AIR Blood Gas Tidal Volume May 13, 2008 4:15pm Not Performed 0-1200 Blood Gas Vent Rate May 13, 2008 4:15pm Not Performed 0-30 Blood Urea Nitrogen March 10, 2014 6:45pm 12.0 MG/DL N 7-17 Calcium Level March 10, 2014 6:45pm 10.3 MG/DL H 8.4-10.2 Calculated Osmolality March 10, 2014 6:45pm 275 MOSM/KG N 261-280 Carbon Dioxide Level March 10, 2014 6:45pm 23 MEQ/L N 22-30 Chlamydia Direct Antigen Assay October 31, 2008 11:38am Negative - Chloride Level March 10, 2014 6:45pm 105 MEQ/L N 98-107 Creatinine March 10, 2014 6:45pm 0.9 MG/DL N 0.7-1.2 Eosinophils # (Auto) March 10, 2014 6:45pm 0.1 T/MM3 N 0-0.5 Eosinophils (%) (Auto) March 10, 2014 6:45pm 0.9 % N 0-4 Erythrocyte Sedimentation Rate December 19, 2008 9:17pm 8 MM/HR - Globulin March 10, 2014 6:45pm 2.7 G/DL N 2.4-3.6 Glucose Level March 10, 2014 6:45pm 94 MG/DL N 65-110 Hematocrit March 10, 2014 6:45pm 38.9 % N 36-46 Hemoglobin March 10, 2014 6:45pm 12.6 GM/DL N 12-16 Lipase March 10, 2014 6:45pm 100 U/L N 23-300 Lymphocytes # (Auto) March 10, 2014 6:45pm 3.2 T/MM3 N 1-4.8 Lymphocytes (%) (Auto) March 10, 2014 6:45pm 21.3 % L 23-45 Magnesium Level December 19, 2008 9:17pm 2.0 MG/DL N 1.6-2.3 Mean Corpuscular Hemoglobin March 10, 2014 6:45pm 27.7 UUG N 26-34 Mean Corpuscular Hemoglobin Concent March 10, 2014 6:45pm 32.4 GM/DL N 31-37 Mean Corpuscular Volume March 10, 2014 6:45pm 85.5 UM3 N 80-100 Mean Platelet Volume March 10, 2014 6:45pm 9.4 UM3 N 9.4-12.4 Monocytes # (Auto) March 10, 2014 6:45pm 0.7 T/MM3 N 0-0.8 Monocytes (%) (Auto) March 10, 2014 6:45pm 4.9 % N 0-9.0 Neutrophils # (Auto) March 10, 2014 6:45pm 10.7 T/MM3 H 1.8-7.7 Neutrophils (%) (Auto) March 10, 2014 6:45pm 72.3 % H 33-66 Platelet Count March 10, 2014 6:45pm 378 T/MM3 N 130-400 Potassium Level March 10, 2014 6:45pm 3.5 MEQ/L L 3.6-5 RDW Standard Deviation March 10, 2014 6:45pm 41.8 FL N 36.9-50.2 Red Blood Count March 10, 2014 6:45pm 4.55 M/MM3 N 4.00-5.20 Sodium Level March 10, 2014 6:45pm 143 MEQ/L N 134-144 Thyroid Stimulating Hormone (TSH) April 26, 2010 10:00am 1.87 MIU/ML N 0.47-4.68 Total Bilirubin March 10, 2014 6:45pm 0.40 MG/DL N 0.20-1.30 Total Protein March 10, 2014 6:45pm 7.3 G/DL N 6.3-8.2 Troponin I February 27, 2014 12:45am < 0.012 ng/ml 0-0.12 Urine Amorphous Urates March 10, 2014 7:28pm Moderate - Has specimen been collected/obtained? Y Urine Bacteria March 10, 2014 7:28pm Trace H - Has specimen been collected/obtained? Y Urine Bilirubin March 10, 2014 7:28pm Negative - Has specimen been collected/obtained? Y Urine Blood March 10, 2014 7:28pm 1+ H - Has specimen been collected/obtained? Y Urine Collection Type March 10, 2014 7:28pm Voided-not cc-midstr - Has specimen been collected/obtained? Y Urine Color March 10, 2014 7:28pm Yellow - Has specimen been collected/obtained? Y Urine Culture Indicated April 26, 2010 9:25am Cult not set up - Has specimen been collected/obtained? Y Urine Glucose (UA) March 10, 2014 7:28pm Negative - Has specimen been collected/obtained? Y Urine Ketones March 10, 2014 7:28pm Negative - Has specimen been collected/obtained? Y Urine Leukocyte Esterase March 10, 2014 7:28pm Negative - Has specimen been collected/obtained? Y Urine Mucus March 10, 2014 7:28pm Present - Has specimen been collected/obtained? Y Urine Nitrite March 10, 2014 7:28pm Negative - Has specimen been collected/obtained? Y Urine Protein March 10, 2014 7:28pm Negative - Has specimen been collected/obtained? Y Urine RBC March 10, 2014 7:28pm 0-1 /HPF - Has specimen been collected/obtained? Y Urine Specific [place] March 10, 2014 7:28pm >=1.030 H - Has specimen been collected/obtained? Y Urine Squamous Epithelial Cells March 10, 2014 7:28pm 0-5 - Has specimen been collected/obtained? Y Urine Transitional Epithelial Cells April 26, 2010 9:25am 1-3 /HPF - Has specimen been collected/obtained? Y Urine Turbidity March 10, 2014 7:28pm Clear - Has specimen been collected/obtained? Y Urine Urobilinogen March 10, 2014 7:28pm 0.2 EU/DL - Has specimen been collected/obtained? Y Urine WBC March 10, 2014 7:28pm 1-3 /HPF - Has specimen been collected/obtained? Y Urine pH March 10, 2014 7:28pm 5.5 - Has specimen been collected/ obtained? Y White Blood Count March 10, 2014 6:45pm 14.8 T/MM3 H 4.5-11.0 Chemistry Specimen Hemolysis March 10, 2014 6:45pm < 15 0-25 0-25 : No Hemolysis.26-70: [...] can falsely decrease Phenytoin. Recommend specimen recollection. Oxygen Delivery Method (LAB) May 13, 2008 4:15pm Room air - Is the patient on room air? YWhat is the Source? (Liters or Percent) ROOM AIR Urinalysis Comment January 05, 2014 9:50pm Microscopic not ind. - Has specimen been collected/obtained? Y Lab Scanned Report February 27, 2014 4:08am [facility]FER[facility] LAB [id number] - Anti-Nuclear Antibody (LAB) March 01, 2008 12:35am Sent out - Turbidity March 10, 2014 6:45pm < 20 0-20 Glomerular Filtration Rate Calc March 10, 2014 6:45pm 74 - Immature Granulocyte # (Auto) March 10, 2014 6:45pm 0.03 T/MM3 N 0.00-0.03 Immature Granulocyte % (Auto) March 10, 2014 6:45pm 0.2 % N 0.0-0.5 Arterial Blood pO2 at Patient Temp May 13, 2008 4:15pm 84 MMHG N 80 -100 Is the patient on room air? YWhat is the Source? (Liters or Percent) ROOM AIR Icterus Index March 10, 2014 6:45pm < 2 0-7 Wet Prep Cervix October 31, 2008 11:38am Name: TROY AVILES Unit #: [id number] : 1985 Sex: F Loc / Svc: ED DOS: Signed Report #: [id number] DIAGNOSTIC IMAGING REPORT TYPE OF EXAM: KUB W/UPRIGHT Dictated By: POP SAUCEDA MD INDICATION: ITS.REASON: abdominal pain, rule out obstruction KUB W/UPRIGHT: Comparison: None Findings: The visualized lung bases are clear. There is no free air on the upright view. The bowel gas pattern is nonobstructive and nonspecific. Gas is seen in nondilated small and large bowel to the level of the rectum. Moderate stool is seen throughout the colon. The bony structures are grossly unremarkable. Impression: Nonobstructive nonspecific bowel gas pattern. . Procedures Procedure Status Date Provider(s) THER/PROPH/DIAG INJ IV PUSH completed 02/07/14 TX/PRO/DX INJ NEW DRUG ADDON completed 02/07/14 TX/PRO/DX INJ NEW DRUG ADDON completed 02/07/14 HYDRATE IV INFUSION ADD-ON completed 02/07/14 THER/PROPH/DIAG INJ IV PUSH completed 02/27/14 TX/PRO/DX INJ NEW DRUG ADDON completed 02/27/14 TX/PRO/DX INJ SAME DRUG [employer]ER completed 02/27/14 HYDRATE IV INFUSION ADD-ON completed 02/27/14 THER/PROPH/DIAG INJ IV PUSH completed 03/10/14 TX/PRO/DX INJ NEW DRUG ADDON completed 03/10/14 TX/PRO/DX INJ SAME DRUG [employer] completed 03/10/14 HYDRATE IV INFUSION ADD-ON completed 03/10/14 Encounters Encounter Location Date/Time Departed Emergency Room [facility] 04/28/14 2:47pm Departed Emergency Room [facility] 03/10/14 5:24pm Departed Emergency Room [facility] 02/27/14 12:25am Departed Emergency Room [facility] 02/07/14 10:36am Recent Diagnosis
--- OUTSIDE RECORDS SUMMARY | 2016-10-09 11:12 | XMS REPORT | Continuity of Care Document ---
Author Author [facility] Organization [facility] Address Unknown Phone Unavailable Support Name Relationship Address Phone IRENE TURCIOS Caregiver [facility] [address] [facility] [address] [place] [address] JULIAN LE MD Caregiver [address] [place] [address] [place] [id number] FADY AGUIAR Next Of Kin [address] [place] [address] Insurance Providers Payer Name Policy Number Subscriber Name Relationship Self Pay Troy Aviles 16 Self Problems Medical Problems Problem Onset Date Status Ulcerative colitis Unknown Active Ulcerative colitis Unknown Active Ulcerative colitis Unknown Active Atrial fibrillation Unknown Active Chronic abdominal pain Unknown Active Methamphetamine use Unknown Active Ulcerative colitis Unknown Active Medications Medication Dose Route Sig [...] Tab PO NEEDED For PAIN 03/10/14 Active Social History Social History Problem Response Recorded Date/Time Smoking Status Current every day smoker 01/05/2014 9:04pm Hx Substance Use Y 02/26/14 03/10/2014 5:26pm Hospital Discharge Instructions No hospital discharge instructions. Plan of Care No plan of care. Functional Status Query Response Date Recorded Physical Hygiene Self March 10, 2014 5:26pm Disabilities None March 10, 2014 5:26pm Devices Used None March 10, 2014 5:26pm Dressing Self March 10, 2014 5:26pm Ambulation Self January 05, 2014 9:04pm Diet Self March 10, 2014 5:26pm Mental Status Alert Oriented January 05, 2014 9:04pm Disabilities None March 10, 2014 5:26pm Devices Used None March 10, 2014 5:26pm Physical Hygiene Self March 10, 2014 5:26pm Dressing Self March 10, 2014 5:26pm Ambulation Self January 05, 2014 9:04pm Diet Self March 10, 2014 5:26pm Allergies, Adverse Reactions, Alerts Allergen Type Severity Reaction Status Last Updated Ibuprofen Adverse Reaction Mild BLEEDING Active 02/27/14 Peanut Oil Allergy Severe ANAPHYLACTIC REACTION Active 02/27/14 Hydromorphone Allergy Unknown AGITATION Active 02/27/14 Ketorolac Allergy Unknown ULCERS Active 03/10/14 Tomato Allergy Unknown Active 02/27/14 Immunizations Name Given Type Hx Tetanus, Diptheria, Pertussis Y PT STATES "WITHIN THE LAST 5 YEARS" Historical Hx Tetanus, Diptheria, Pertussis Y PT STATES "WITHIN THE LAST 5 YEARS" Historical Vital Signs Acute Vital Signs Vital Response Date/Time Temperature (Fahrenheit) 97.5 deg F (96.8 - 99.1) Temperature (Calculated Celsius) 36.46845 degrees C (36.0 - 37.3) Pulse Rate (adult) 112 bpm (60 - 100) Respiratory Rate 22 breaths/min (10 - 20) O2 Sat by Pulse Oximetry 98 % (90 - 100) Blood Pressure 120/70 mm Hg Height 5 ft 7 in Weight 198 lb Body Mass Index 31.0 kg/m^2 Results Test Source Date Result Interp. [...] Has specimen been collected/obtained? Y Urine Specific [place] March 10, 2014 7:28pm >=1.030 H - [...] Report February 27, 2014 4:08am REFER[facility] LAB [id number] - Anti-Nuclear Antibody (LAB) March 01, 2008 [...] 2008 11:38am Name: TROY AVILES Unit #: [id number] : 1985 Sex: F Loc / Svc: ED DOS: Signed Report #: [id number] DIAGNOSTIC IMAGING REPORT TYPE OF EXAM: KUB [...] Date Provider(s) THER/PROPH/DIAG INJ IV PUSH completed 01/05/14 TX/PRO/DX INJ NEW DRUG ADDON completed 01/05/14 HYDRATE IV INFUSION ADD-ON completed 01/05/14 THER/PROPH/DIAG INJ IV PUSH completed 02/07/14 TX/PRO/DX INJ NEW DRUG ADDON completed 02/07/14 TX/PRO/DX INJ NEW DRUG ADDON completed 02/07/14 HYDRATE IV INFUSION ADD-ON completed 02/07/14 THER/PROPH/DIAG INJ IV PUSH completed 02/27/14 TX/PRO/DX INJ NEW DRUG ADDON completed 02/27/14 TX/PRO/DX INJ SAME DRUG [employer]CH[employer] completed 02/27/14 HYDRATE IV INFUSION ADD-ON completed 02/27/14 Encounters Encounter Location Date/Time Departed Emergency Room [facility] 03/10/14 5:24pm Departed Emergency Room [facility] 02/27/14 12:25am Departed Emergency Room [facility] 02/07/14 10:36am Departed Emergency Room [facility] 01/05/14 7:51pm Recent Diagnosis
--- OUTSIDE RECORDS SUMMARY | 2016-10-09 11:13 | XMS REPORT | Continuity of Care Document ---
Author Author [facility] Organization [facility] Address Unknown Phone Unavailable Support Name Relationship Address Phone JULIAN LE MD [address] [place] [phone] YESIKA AVILES Next Of Kin [address] [place] [address] Insurance Providers Payer Name Policy Number Subscriber Name Relationship Self Pay Troy Aviles 16 Self Problems Medical Problems Problem Onset Date Status Ulcerative colitis Unknown Active Ulcerative colitis Unknown Active Ulcerative colitis Unknown Active Medications Medication Dose Route Sig Days/Qty Instructions Order Date Discontinued Date Status [None] 05/13/08 11/09/09 Discontinued Albuterol Sulfate 8.5 Gm IH NEEDED 04/26/10 11/06/10 Discontinued Prednisone NEEDED 04/26/10 11/06/10 Discontinued Mesalamine 800 Mg PO FOUR TIMES DAILY 02/07/14 Active Hydrocodone/Acetaminophen 1-2 Tab PO Every 6 Hours PRN PAIN 30 Qty 02/13 Active Social History Social History Problem Response Recorded Date/Time Smoking Status Current every day smoker 01/05/2014 9:04pm Hospital Discharge Instructions No hospital discharge instructions. Plan of Care No plan of care. Functional Status Query Response Date Recorded Physical Hygiene Self February 07, 2014 11:01am Disabilities None February 07, 2014 11:01am Devices Used None February 07, 2014 11:01am Dressing Self February 07, 2014 11:01am Ambulation Self January 05, 2014 9:04pm Diet Self February 07, 2014 11:01am Mental Status Alert Oriented January 05, 2014 9:04pm Disabilities None February 07, 2014 11:01am Devices Used None February 07, 2014 11:01am Physical Hygiene Self February 07, 2014 11:01am Dressing Self February 07, 2014 11:01am Ambulation Self January 05, 2014 9:04pm Diet Self February 07, 2014 11:01am Allergies, Adverse Reactions, Alerts Allergen Type Severity Reaction Status Last Updated Ibuprofen Adverse Reaction Mild BLEEDING Active 01/05/14 Peanut Oil Allergy Severe ANAPHYLACTIC REACTION Active 01/05/14 Tomato Allergy Unknown Active 01/05/14 Immunizations Name Given Type Hx Tetanus, Diptheria, Pertussis Y PT STATES "WITHIN THE LAST 5 YEARS" Historical Hx Tetanus, Diptheria, Pertussis Y PT STATES "WITHIN THE LAST 5 YEARS" Historical Vital Signs Acute Vital Signs Vital Response Date/Time Temperature (Fahrenheit) 96.8 deg F (96.8 - 99.1) Temperature (Calculated Celsius) 36.99557 degrees C (36.0 - 37.3) Pulse Rate (adult) 73 bpm (60 - 100) Respiratory Rate 18 breaths/min (10 - 20) O2 Sat by Pulse Oximetry 98 % (90 - 100) Blood Pressure 114/57 mm Hg Height 5 ft 6 in Weight 205 lb Body Mass Index 33.0 kg/m^2 Results Test Source Date Result Interp. Ref. Range Comments Alanine Aminotransferase (ALT/SGPT) February 07, 2014 11:16am 24 U/L N 9- 52 Albumin February 07, 2014 11:16am 4.0 G/DL N 3.5-5.0 Albumin/Globulin Ratio February 07, 2014 11:16am 1.7 RATIO N 1.1-2.2 Alkaline Phosphatase February 07, 2014 11:16am 78 U/L N 38-126 Anion Gap February 07, 2014 11:16am 11 MEQ/L N 5-15 Anti-Nuclear Antibody (LAB) March [...] Percent) ROOM AIR Aspartate Amino Transf (AST/SGOT) February 07, 2014 11:16am 12 U/L L 14- 36 BUN/Creatinine Ratio February 07, 2014 11:16am 9 RATIO N 6-26 Basophils # (Auto) February 07, 2014 11:16am 0.1 T/MM3 N 0-0.2 Basophils (%) (Auto) February 07, 2014 11:16am 0.5 % N 0-2 Blood Gas Oxygen Saturation May 13, 2008 4:15pm 97.0 % N 95.0-98.0 Is the patient on room air? YWhat is the Source? (Liters or Percent) ROOM AIR Blood Gas Tidal Volume May 13, 2008 4:15pm Not Performed 0-1200 Blood Gas Vent Rate May 13, 2008 4:15pm Not Performed 0-30 Blood Urea Nitrogen February 07, 2014 11:16am 8.0 MG/DL N 7-17 Calcium Level February 07, 2014 11:16am 8.9 MG/DL N 8.4-10.2 Calculated Osmolality February 07, 2014 11:16am 271 MOSM/KG N 261-280 Carbon Dioxide Level February 07, 2014 11:16am 23 MEQ/L N 22-30 Chemistry Specimen Hemolysis February 07, 2014 11:16am < 15 0-25 0-25: No Hemolysis.26-70: Slight Hemolysis - can falsely [...] 31, 2008 11:38am Negative - Chloride Level February 07, 2014 11:16am 108 MEQ/L H 98-107 Creatinine February 07, 2014 11:16am 0.9 MG/DL N 0.7-1.2 Eosinophils # (Auto) February 07, 2014 11:16am 0.1 T/MM3 N 0-0.5 Eosinophils (%) (Auto) February 07, 2014 11:16am 1.2 % N 0-4 Erythrocyte Sedimentation Rate December 19, 2008 9:17pm 8 MM/HR - Globulin February 07, 2014 11:16am 2.4 G/DL N 2.4-3.6 Glomerular Filtration Rate Calc February 07, 2014 11:16am 74 - Glucose Level February 07, 2014 11:16am 93 MG/DL N 65-110 Hematocrit February 07, 2014 11:16am 36.0 % N 36-46 Hemoglobin February 07, 2014 11:16am 11.8 GM/DL L 12-16 Icterus Index February 07, 2014 11:16am < 2 0-7 Immature Granulocyte # (Auto) February 07, 2014 11:16am 0.02 T/MM3 N 0.00- 0.03 Immature Granulocyte % (Auto) February 07, 2014 11:16am 0.2 % N 0.0-0.5 Lipase February 07, 2014 11:16am 125 U/L N 23-300 Lymphocytes # (Auto) February 07, 2014 11:16am 2.9 T/MM3 N 1-4.8 Lymphocytes (%) (Auto) February 07, 2014 11:16am 23.7 % N 23-45 Magnesium Level December 19, 2008 9:17pm 2.0 MG/DL N 1.6-2.3 Mean Corpuscular Hemoglobin February 07, 2014 11:16am 28.1 UUG N 26-34 Mean Corpuscular Hemoglobin Concent February 07, 2014 11:16am 32.8 GM/DL N 31-37 Mean Corpuscular Volume February 07, 2014 11:16am 85.7 UM3 N 80-100 Mean Platelet Volume February 07, 2014 11:16am 9.9 UM3 N 9.4-12.4 Monocytes # (Auto) February 07, 2014 11:16am 0.5 T/MM3 N 0-0.8 Monocytes (%) (Auto) February 07, 2014 11:16am 3.9 % N 0-9.0 Neutrophils # (Auto) February 07, 2014 11:16am 8.6 T/MM3 H 1.8-7.7 Neutrophils (%) (Auto) February 07, 2014 11:16am 70.5 % H 33-66 Oxygen Delivery Method (LAB) May 13, 2008 4:15pm Room air - Is the patient on room air? YWhat is the Source? (Liters or Percent) ROOM AIR Platelet Count February 07, 2014 11:16am 334 T/MM3 N 130-400 Potassium Level February 07, 2014 11:16am 3.7 MEQ/L N 3.6-5 RDW Standard Deviation February 07, 2014 11:16am 41.5 FL N 36.9-50.2 Red Blood Count February 07, 2014 11:16am 4.20 M/MM3 N 4.00-5.20 Sodium Level February 07, 2014 11:16am 142 MEQ/L N 134-144 Thyroid Stimulating Hormone (TSH) April 26, 2010 10:00am 1.87 MIU/ML N 0.47-4.68 Total Bilirubin February 07, 2014 11:16am < 0.10 MG/DL L 0.20-1.30 Total Protein February 07, 2014 11:16am 6.4 G/DL N 6.3-8.2 Turbidity February 07, 2014 11:16am < 20 0-20 Urinalysis Comment January 05, 2014 9:50pm Microscopic not ind. - Has specimen been collected/obtained? Y Urine Amorphous Urates February 07, 2014 11:10am Few - Has specimen been collected/obtained? Y Urine Bacteria February 07, 2014 11:10am 1+ H - Has specimen been collected/obtained? Y Urine Bilirubin February 07, 2014 11:10am Negative - Has specimen been collected/obtained? Y Urine Blood February 07, 2014 11:10am 3+ H - Has specimen been collected/ obtained? Y Urine Collection Type February 07, 2014 11:10am Voided-not cc-midstr - Has specimen been collected/obtained? Y Urine Color February 07, 2014 11:10am Yellow - Has specimen been collected/obtained? Y Urine Culture Indicated April 26, 2010 9:25am Cult not set up - Has specimen been collected/obtained? Y Urine Glucose (UA) February 07, 2014 11:10am Negative - Has specimen been collected/obtained? Y Urine Ketones February 07, 2014 11:10am Negative - Has specimen been collected/obtained? Y Urine Leukocyte Esterase February 07, 2014 11:10am Negative - Has specimen been collected/obtained? Y Urine Mucus February 07, 2014 11:10am Present - Has specimen been collected/obtained? Y Urine Nitrite February 07, 2014 11:10am Negative - Has specimen been collected/obtained? Y Urine Protein February 07, 2014 11:10am Negative - Has specimen been collected/obtained? Y Urine RBC February 07, 2014 11:10am 1-3 /HPF - Has specimen been collected/obtained? Y Urine Specific [place] February 07, 2014 11:10am 1.020 - Has specimen been collected/obtained? Y Urine Squamous Epithelial Cells February 07, 2014 11:10am 10-20 - Has specimen been collected/obtained? Y Urine Transitional Epithelial Cells April 26, 2010 9:25am 1-3 /HPF - Has specimen been collected/obtained? Y Urine Turbidity February 07, 2014 11:10am Clear - Has specimen been collected/obtained? Y Urine Urobilinogen February 07, 2014 11:10am 0.2 EU/DL - Has specimen been collected/obtained? Y Urine WBC February 07, 2014 11:10am 1-3 /HPF - Has specimen been collected/obtained? Y Urine pH February 07, 2014 11:10am 7.0 - Has specimen been collected/ obtained? Y White Blood Count February 07, 2014 11:16am 12.2 T/MM3 H 4.5-11.0 Wet Prep Cervix October 31, 2008 11:38am Name: TROY AVILES Unit #: [id number] : 1985 Sex: F Loc / Svc: ED DOS: Signed Report #: [id number] DIAGNOSTIC IMAGING REPORT TYPE OF EXAM: KUB [...] 01/05/14 HYDRATE IV INFUSION ADD-ON completed 01/05/14 Encounters Encounter Location Date/Time Registered Emergency Room [facility] 02/07/14 10:36am Departed Emergency Room [facility] 01/05/14 7:51pm Recent Diagnosis
--- OUTSIDE RECORDS SUMMARY | 2016-10-09 11:13 | XMS REPORT | Continuity of Care Document ---
Author Author [facility] Organization [facility] Address Unknown Phone Unavailable Support Name Relationship Address Phone BEULAH LOUIS MD Caregiver [facility] [address] [place] [address] Unavailable SARBJIT MONTE MD Caregiver [address] [place] [address] [phone] TORO SIMMONS Next Of Kin [address] [place] [address] Insurance Providers Payer Name Policy Number Subscriber Name Relationship Self Pay Troy Aviles 16 Self Advance Directives Directive Response Recorded Date/Time Advanced Directives Type None 08/19/14 7:51pm Problems Medical Problems Problem Onset Date Status [...] colitis Unknown Active Abdominal pain Unknown Active Medications [...] 30 Qty x 3 days 08/19/14 Active Social History Social History Problem Response Recorded Date/Time Hx Substance Use Y PAST PT REPORTS 08/19/2014 9:03pm Hx Alcohol Use No 08/19/2014 9:03pm Tobacco Usage smoke 07/23/2014 12:31pm Query Response Start Date Stop Date Smoking Status Current every day smoker Hospital Discharge Instructions No hospital discharge instructions. Plan of Care No plan of care. Functional Status Query Response Date Recorded Physical Hygiene Self August 19, 2014 9:03pm Disabilities None August 19, 2014 9:03pm Devices Used None August 19, 2014 9:03pm Dressing Self August 19, 2014 9:03pm Ambulation Self January 05, 2014 9:04pm Diet Self August 19, 2014 9:03pm Mental Status Alert Oriented January 05, 2014 9:04pm Disabilities None August 19, 2014 9:03pm Devices Used None August 19, 2014 9:03pm Physical Hygiene Self August 19, 2014 9:03pm Dressing Self August 19, 2014 9:03pm Ambulation Self January 05, 2014 9:04pm Diet Self August 19, 2014 9:03pm Allergies, Adverse Reactions, Alerts Allergen Type Severity Reaction Status Last Updated Ibuprofen Adverse Reaction Mild BLEEDING Active 08/19/14 Peanut Oil Allergy Severe ANAPHYLACTIC REACTION Active 08/19/14 Ketorolac Adverse Reaction Intermediate ULCERS/INCREASED BLEEDING Active 08/19/14 Tomato Allergy Unknown Active 08/19/14 Immunizations Name Given Type Hx Influenza Vaccination No Historical Hx Tetanus, Diptheria, Pertussis Yes Historical Hx Influenza Vaccination No Historical Hx Tetanus, Diptheria, Pertussis Yes Historical Vital Signs Acute Vital Signs Vital Response Date/Time Temperature (Fahrenheit) 97.8 deg F (96.8 - 99.1) Temperature (Calculated Celsius) 36.36766 degrees C (36.0 - 37.3) Pulse Rate (adult) 101 bpm (60 - 100) Respiratory Rate 24 breaths/min (10 - 20) O2 Sat by Pulse Oximetry 100 % (90 - 100) Blood Pressure 137/81 mm Hg Height 5 ft 6 in Weight 202 lb Body Mass Index 32.0 kg/m^2 Results Test Source Date Result Interp. Ref. Range Comments Alanine Aminotransferase (ALT/SGPT) August 19, 2014 9:06pm 30 U/L N 9- 52 Albumin August 19, 2014 9:06pm 3.9 G/DL N 3.5-5.0 Albumin/Globulin Ratio August 19, 2014 9:06pm 1.4 RATIO N 1.1-2.2 Alkaline Phosphatase August 19, 2014 9:06pm 71 U/L N 38-126 Amylase Level August 19, 2014 9:06pm 82 U/L N 30-110 Anion Gap August 19, 2014 9:06pm 11 MEQ/L N 5-15 Anti-Nuclear Antibody (LAB) [...] ROOM AIR Aspartate Amino Transf (AST/SGOT) August 19, 2014 9:06pm 14 U/L N 14- 36 BUN/Creatinine Ratio August 19, 2014 9:06pm 14 RATIO N 6-26 Band Neutrophils # July 30, 2014 10:05pm 0.5 T/MM3 - Band Neutrophils % July 30, 2014 10:05pm 3.0 % N 0-6 Basophils # (Auto) August 19, 2014 9:06pm 0.0 T/MM3 N 0-0.2 Basophils # (Manual) July 30, 2014 10:05pm 0.2 T/MM3 N 0-0.2 Basophils % (Manual) July 30, 2014 10:05pm 1.0 % N 0-2 Basophils (%) (Auto) August 19, 2014 9:06pm 0.3 % N 0-2 Blood Gas Oxygen Saturation May 13, 2008 4:15pm 97.0 % N 95.0-98.0 Is the patient on room air? YWhat is the Source? (Liters or Percent) ROOM AIR Blood Gas Tidal Volume May 13, 2008 4:15pm Not Performed 0-1200 Blood Gas Vent Rate May 13, 2008 4:15pm Not Performed 0-30 Blood Urea Nitrogen August 19, 2014 9:06pm 10.0 MG/DL N 7-17 Calcium Level August 19, 2014 9:06pm 9.5 MG/DL N 8.4-10.2 Calculated Osmolality August 19, 2014 9:06pm 273 MOSM/KG N 261-280 Carbon Dioxide Level August 19, 2014 9:06pm 24 MEQ/L N 22-30 Chemistry Specimen Hemolysis August 19, 2014 9:06pm 15 N 0-25 0-25: No Hemolysis.26-70: Slight Hemolysis - [...] 2008 11:38am Negative - Chloride Level August 19, 2014 9:06pm 108 MEQ/L H 98-107 Creatinine August 19, 2014 9:06pm 0.7 MG/DL N 0.7-1.2 Eosinophils # (Auto) August 19, 2014 9:06pm 0.1 T/MM3 N 0-0.5 Eosinophils (%) (Auto) August 19, 2014 9:06pm 0.8 % N 0-4 Erythrocyte Sedimentation Rate December 19, 2008 9:17pm 8 MM/HR - Globulin August 19, 2014 9:06pm 2.7 G/DL N 2.4-3.6 Glomerular Filtration Rate Calc August 19, 2014 9:06pm 98 - Glucose Level August 19, 2014 9:06pm 82 MG/DL N 65-110 Hematocrit August 19, 2014 9:06pm 33.9 % L 36-46 Hemoglobin August 19, 2014 9:06pm 11.0 GM/DL L 12-16 Icterus Index August 19, 2014 9:06pm < 2 0-7 Immature Granulocyte # (Auto) August 19, 2014 9:06pm 0.02 T/MM3 N 0.00 -0.03 Immature Granulocyte % (Auto) August 19, 2014 9:06pm 0.2 % N 0.0-0.5 Lab Scanned Report July 29, 2014 4:27pm REFERENCE LAB [id number] - Lipase August 19, 2014 9:06pm 273 U/L N 23-300 Lymphocytes # (Auto) August 19, 2014 9:06pm 3.5 T/MM3 N 1-4.8 Lymphocytes # (Manual) July 30, 2014 10:05pm 2.8 T/MM3 N 1-4.8 Lymphocytes % (Manual) July 30, 2014 10:05pm 16.0 % L 23-45 Lymphocytes (%) (Auto) August 19, 2014 9:06pm 31.7 % N 23-45 Magnesium Level July 30, 2014 10:05pm 2.1 MG/DL N 1.6-2.3 Mean Corpuscular Hemoglobin August 19, 2014 9:06pm 27.6 UUG N 26-34 Mean Corpuscular Hemoglobin Concent August 19, 2014 9:06pm 32.4 GM/DL N 31-37 Mean Corpuscular Volume August 19, 2014 9:06pm 85.0 UM3 N 80-100 Mean Platelet Volume August 19, 2014 9:06pm 9.7 UM3 N 9.4-12.4 Monocytes # (Auto) August 19, 2014 9:06pm 0.5 T/MM3 N 0-0.8 Monocytes # (Manual) July 30, 2014 10:05pm 0.2 T/MM3 N 0-0.8 Monocytes % (Manual) July 30, 2014 10:05pm 1.0 % N 0-9.0 Monocytes (%) (Auto) August 19, 2014 9:06pm 4.3 % N 0-9.0 Neutrophils # (Auto) August 19, 2014 9:06pm 7.0 T/MM3 N 1.8-7.7 Neutrophils # (Manual) July 30, 2014 10:05pm 13.8 T/MM3 H 1.8-7.7 Neutrophils % (Manual) July 30, 2014 10:05pm 79.0 % H 33-66 Neutrophils (%) (Auto) August 19, 2014 9:06pm 62.7 % N 33-66 Oxygen Delivery Method (LAB) May 13, 2008 4:15pm Room air - Is the patient on room air? YWhat is the Source? (Liters or Percent) ROOM AIR Platelet Count August 19, 2014 9:06pm 340 T/MM3 N 130-400 Potassium Level August 19, 2014 9:06pm 3.7 MEQ/L N 3.6-5 RDW Standard Deviation August 19, 2014 9:06pm 42.3 FL N 36.9-50.2 Red Blood Count August 19, 2014 9:06pm 3.99 M/MM3 L 4.00-5.20 Sodium Level August 19, 2014 9:06pm 143 MEQ/L N 134-144 Thyroid Stimulating Hormone (TSH) July 30, 2014 10:05pm 6.06 MIU/L DH 0.47-4.68 Total Bilirubin August 19, 2014 9:06pm 0.20 MG/DL N 0.20-1.30 Total Protein August 19, 2014 9:06pm 6.6 G/DL N 6.3-8.2 Troponin I July 30, 2014 10:05pm < 0.012 ng/ml 0-0.12 Turbidity August 19, 2014 9:06pm < 20 0-20 Urinalysis Comment August 19, 2014 9:42pm Microscopic not ind. - Has specimen been collected/obtained? Y Urine Amorphous Urates March 10, 2014 7:28pm Moderate - Has specimen been collected/obtained? Y Urine Bacteria March 10, 2014 7:28pm Trace H - Has specimen been collected/obtained? Y Urine Bilirubin August 19, 2014 9:42pm Negative - Has specimen been collected/obtained? Y Urine Blood August 19, 2014 9:42pm Negative - Has specimen been collected/obtained? Y Urine Collection Type August 19, 2014 9:42pm Cleancatch-midstream - Has specimen been collected/obtained? Y Urine Color August 19, 2014 9:42pm Yellow - Has specimen been collected/obtained? Y Urine Culture Indicated April 26, 2010 9:25am Cult not set up - Has specimen been collected/obtained? Y Urine Glucose (UA) August 19, 2014 9:42pm Negative - Has specimen been collected/obtained? Y Urine Ketones August 19, 2014 9:42pm Negative - Has specimen been collected/obtained? Y Urine Leukocyte Esterase August 19, 2014 9:42pm Negative - Has specimen been collected/obtained? Y Urine Mucus March 10, 2014 7:28pm Present - Has specimen been collected/obtained? Y Urine Nitrite August 19, 2014 9:42pm Negative - Has specimen been collected/obtained? Y Urine Protein August 19, 2014 9:42pm Negative - Has specimen been collected/obtained? Y Urine RBC March 10, 2014 7:28pm 0-1 /HPF - Has specimen been collected/obtained? Y Urine Specific [place] August 19, 2014 9:42pm 1.010 L - Has specimen been collected/obtained? Y Urine Squamous Epithelial Cells March 10, 2014 7:28pm 0-5 - Has specimen been collected/obtained? Y Urine Transitional Epithelial Cells April 26, 2010 9:25am 1-3 /HPF - Has specimen been collected/obtained? Y Urine Turbidity August 19, 2014 9:42pm Clear - Has specimen been collected/obtained? Y Urine Urobilinogen August 19, 2014 9:42pm 0.2 EU/DL - Has specimen been collected/obtained? Y Urine WBC March 10, 2014 7:28pm 1-3 /HPF - Has specimen been collected/obtained? Y Urine pH August 19, 2014 9:42pm 7.0 - Has specimen been collected/ obtained? Y White Blood Count August 19, 2014 9:06pm 11.1 T/MM3 H 4.5-11.0 Wet Prep Cervix October 31, 2008 11:38am Gram Stain Hip, Non-Surgical Site-Right April 28, 2014 3:40pm Name: TROY AVILES Unit #: [id number] : [id number] Sex: F Loc / Svc: ED DOS: 07/30/14 Signed Report #: [id number] DIAGNOSTIC IMAGING REPORT TYPE OF EXAM: CHEST 1 VIEW Dictated By: POP SAUCEDA MD INDICATION: ITS.REASON: CHEST PAIN, HEART PALPITATIONS CHEST 1 VIEW: Comparison: July 23, 2014 FINDINGS: The lungs are clear. There is no abnormal airspace opacity, pleural effusion or pneumothorax identified. The heart size, pulmonary vasculature and mediastinum are within normal limits. No significant skeletal abnormality is seen. IMPRESSION: No acute cardiopulmonary abnormality. . Procedures Procedure Status Date Provider(s) HYDRATE IV INFUSION ADD-ON completed 06/15/14 HYDRATE IV INFUSION ADD-ON completed 06/15/14 THER/PROPH/DIAG INJ IV PUSH completed 06/15/14 TX/PRO/DX INJ NEW DRUG ADDON completed 06/15/14 TX/PRO/DX INJ SAME DRUG AIR TRAFFIC CONTROL MANAGER completed 06/15/14 HYDRATE IV INFUSION ADD-ON completed 07/23/14 THER/PROPH/DIAG [...] ADDON completed 07/30/14 TX/PRO/DX INJ SAME DRUG AIR TRAFFIC CONTROL MANAGER completed 07/30/14 Encounters Encounter Location Date/Time Departed Emergency Room [facility] 08/19/14 7:04pm Departed Emergency Room [facility] 07/30/14 9:52pm Departed Emergency Room [facility] 07/23/14 11:53am Departed Emergency Room [facility] 07/15/14 3:56pm Departed Emergency Room [facility] 06/15/14 4:17pm Departed Emergency Room [facility] 06/08/14 5:33pm Recent Diagnosis
--- OUTSIDE RECORDS SUMMARY | 2016-10-09 11:14 | XMS REPORT | Continuity of Care Document ---
Author Author [facility] Organization [facility] Address Unknown Phone Unavailable Support Name Relationship Address Phone SARBJIT MONTE MD Caregiver [phone] [facility] [place] [phone] PUJA DEWEY MD Caregiver [phone] [facility] [place] [phone] [facility] Next Of Kin [address] [place] [address] Insurance Providers Payer Name Policy [...] Active Migraine Unknown Active Migraine Unknown Active Medications Medication Dose Route Sig Days/Qty Instructions Order Date Discontinued Date Status [None] 05/13/08 11/09/09 Discontinued Albuterol Sulfate 8.5 Gm IH NEEDED 04/26/10 11/06/10 Discontinued Prednisone NEEDED 04/26/10 11/06/10 Discontinued [No Routine Meds] 02/27/14 03/10/14 Discontinued Prochlorperazine Maleate 10 Mg PO FOUR TIMES DAILY 30 Qty 02/27/1402/13 Discontinued Mesalamine 800 Mg PO FOUR TIMES DAILY 03/10/14 Active Promethazine HCl 25 Mg PO Q6H/0300,0900,1500,2100 For NAUSEA &/OR VOMITING 10 Qty 05/18/14 Active Sumatriptan Succinate 1 Tab PO EVERY TWO HOURS For HEADACHE 20 Qty 1 PO Q 2 HRS PRN HEADACHE UP TO MAX OF 4 TABS IN 24 HOURS 05/18/14 Active Social History Social History Problem Response Recorded Date/Time Smoking Status Current every day smoker 01/05/2014 9:04pm Hx Substance Use Y 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 Plan of Care No plan of care. Functional Status Query Response Date Recorded Physical Hygiene Self May 17, 2014 11:34pm Disabilities None May 17, 2014 11:34pm Devices Used Glasses May 17, 2014 11:34pm Dressing Self May 17, 2014 11:34pm Ambulation Self January 05, 2014 9:04pm Diet Self May 17, 2014 11:34pm Mental Status Alert Oriented January 05, 2014 9:04pm Disabilities None May 17, 2014 11:34pm Devices Used Glasses May 17, 2014 11:34pm Physical Hygiene Self May 17, 2014 11:34pm Dressing Self May 17, 2014 11:34pm Ambulation Self January 05, 2014 9:04pm Diet Self May 17, 2014 11:34pm Allergies, Adverse Reactions, Alerts Allergen Type Severity Reaction Status Last Updated Ibuprofen Adverse Reaction Mild BLEEDING Active 05/17/14 Peanut Oil Allergy Severe ANAPHYLACTIC REACTION Active 05/17/14 Ketorolac Adverse Reaction Intermediate ULCERS/INCREASED BLEEDING Active 05/17/14 Tomato Allergy Unknown Active 05/17/14 Immunizations Name Given Type Hx Influenza Vaccination No Historical Hx Tetanus, Diptheria, Pertussis Y PT STATES "WITHIN THE LAST 5 YEARS" Historical Hx Influenza Vaccination No Historical Hx Tetanus, Diptheria, Pertussis Y PT STATES "WITHIN THE LAST 5 YEARS" Historical Vital Signs Acute Vital Signs Vital Response Date/Time Temperature (Fahrenheit) 96.0 deg F (96.8 - 99.1) Temperature (Calculated Celsius) 35.73067 degrees C (36.0 - 37.3) Pulse Rate (adult) 96 bpm (60 - 100) Respiratory Rate 16 breaths/min (10 - 20) O2 Sat by Pulse Oximetry 98 % (90 - 100) Blood Pressure 120/70 mm Hg Height 5 ft 6.5 in Weight 192 lb Body Mass Index 30.0 kg/m^2 Results Test Source Date Result Interp. [...] Has specimen been collected/obtained? Y Urine Specific [place] March 10, 2014 7:28pm >=1.030 H - [...] Report February 27, 2014 4:08am REFERENCE LAB [id number] - Anti-Nuclear Antibody (LAB) March 01, 2008 [...] Hip, Non-Surgical Site-Right April 28, 2014 3:40pm Procedures Procedure Status Date Provider(s) THER/PROPH/DIAG INJ IV PUSH completed 02/27/14 TX/PRO/DX INJ NEW DRUG ADDON completed 02/27/14 TX/PRO/DX INJ SAME DRUG DIRECTOR PROCESS IMPROVEMENT completed 02/27/14 HYDRATE IV INFUSION ADD-ON completed 02/27/14 THER/PROPH/DIAG INJ IV PUSH completed 03/10/14 TX/PRO/DX INJ NEW DRUG ADDON completed 03/10/14 TX/PRO/DX INJ SAME DRUG DIRECTOR PROCESS IMPROVEMENT completed 03/10/14 HYDRATE IV INFUSION ADD-ON completed 03/10/14 DRAINAGE OF SKIN ABSCESS completed 05/01/14 SHAMA LARSON DO Encounters Encounter Location Date/Time Departed Emergency Room [facility] 05/17/14 11:22pm Departed Emergency Room [facility] 05/01/14 6:45pm Departed Emergency Room [facility] 04/28/14 2:47pm Departed Emergency Room [facility] 03/10/14 5:24pm Departed Emergency Room [facility] 02/27/14 12:25am Recent Diagnosis
--- OUTSIDE RECORDS SUMMARY | 2016-10-09 11:14 | XMS REPORT ---
Author Author [facility], [facility] - Organization Unknown Address Unknown Phone Unavailable Allergies, Adverse Reactions, Alerts * peanut (as Food allergen) causes Adverse Reaction. * peanut causes Adverse Reaction. * ibuprofen causes Adverse Reaction. * No Latex Allergy. * No IV Contrast Allergy. Problems No relevant problems exist. Procedures No relevant procedures performed. Medication Medication reconciliation has not been performed. Results LAB--BEDSIDE TESTING from 12/31/2012 4:06 AMPregnancy Screen, Urine NPT Negative LAB--CHEMISTRY from 12/31/2012 3:43 AMAnion Gap 8 (3-20 ) Albumin 3.9 g/dL (3.5-4.8 g/dL) Alkaline Phosphatase 54 U/L (26-104 U/L) ALT (SGPT) 13 U/L L (14-54 U/L) AST (SGOT) 12 U/L L (15-41 U/L) Bilirubin Total 0.3 mg/dL (0.2-1.2 mg/dL) BUN 11 mg/dL (4-20 mg/dL) Calcium 9.4 mg/dL (8.6-10.0 mg/dL) Chloride 111 mEq/L H (99-109 mEq/L) CO2 19 mEq/L L (22-32 mEq/L) Creatinine 0.81 mg/dL (0.44-1.03 mg/dL) eGFR >60 (>60- ) Globulin 2.5 g/dL (1.9-4.3 g/dL) Glucose 109 mg/dL H (70-100 mg/dL) Potassium 3.7 mEq/L (3.6-5.1 mEq/L) Sodium 138 mEq/L (136-144 mEq/L) Protein 6.4 g/dL (6.1-7.9 g/dL) Lipase 32 U/L (8-48 U/L) LAB--HEMATOLOGY from 12/31/2012 3:43 AMAbsolute Basophils 0.04 THOUS (0.00-0.20 THOUS) Absolute Eosinophils 0.08 THOUS (0.00-0.50 THOUS) Absolute Lymphocytes 3.41 THOUS H (0.80-3.30 THOUS) Absolute Monocytes 0.53 THOUS (0.30-1.00 THOUS) Absolute Neutrophils 8.61 THOUS H (1.90-7.00 THOUS) HCT 36.4 % L (37.0-47.0 %) HGB 12.1 g/dl (12.0-16.0 g/dl) MCH 28.0 pg (27.0-32.0 pg) MCHC 33.2 g/dL (32.0-36.0 g/dL) MCV 84.3 fL (82.0-99.0 fL) MPV 9.8 fL (9.4-12.4 fL) Platelet Count 328 K/uL (150-400 K/uL) RBC 4.32 M/uL (4.00-5.20 M/uL) RDW 14.2 % (11.5-14.5 %) WBC 12.7 K/uL H (4.8-10.8 K/uL) Basophils 0 % (0-2 %) Eosinophils 1 % (0-4 %) Immature Granulocytes 0.2 % (0.0-1.0 %) Lymphocytes 27 % (20-46 %) Monocytes 4 % (4-11 %) Nucleated RBC Automated 0.0 /100 WBC (0 /100 WBC) Neutrophils 68 % (51-75 %) LAB--URINE TESTS from 12/31/2012 3:44 AMAppearance Clear Bilirubin Negative (Negative ) Blood Negative (Negative ) Color Lt Yellow Glucose Negative (Negative ) Ketones, Urine Negative (Negative ) Leukocytes Esterase Negative (Negative ) Nitrites Negative (Negative ) pH, Urine 5.0 (5.0-8.0 ) Protein Negative (Negative ) Specific Amalia 1.016 (1.003-1.030 ) Collection Type: Clean Catch Urobilinogen Negative mg/dL (-<1.0 mg/dL)
--- OUTSIDE RECORDS SUMMARY | 2016-10-09 11:14 | XMS REPORT | Referral Summary ---
Author Author [facility] Organization [facility] Address Unknown Phone Unavailable Care Team Providers Care Thimble Press Operator Name Role Phone No PCP, Pt States Primary Care Physician [phone] Encounter VC Date(s): 04/19/16 - 04/19/16 [facility] [address] [place] [address] Discharge Disposition: Vital Signs Most recent to 1 oldest [Reference Range]: Temperature Oral 36.9 degC [35.8-37.3 degC] (04/19/16 5:21 PM) Peripheral Pulse 100 bpm Rate [60-100 bpm] (04/19/16 6:15 PM) Heart Rate Monitored 87 bpm [60-100 bpm] (04/19/16 5:50 PM) Respiratory Rate 18 br/min [14-20 br/min] (04/19/16 6:15 PM) Blood Pressure 110/67 mmHg [90-140/60-90 mmHg] (04/19/16 6:15 PM) Mean Arterial 95 mmHg Pressure, Cuff (04/19/16 5:50 PM) SpO2 99 % (04/19/16 6:15 PM) Problem List Condition Effective Dates Status [...] 07/13/15 Status: Ordered Communication Patient transferred from [facility]. Refer to Acute Care MAR for last doses., 0 Refill(s) Start Date: [...] Refill(s) Start Date: 03/24/15 Status: Ordered Results Chemistry Most recent to 1 oldest [Reference Range]: Creatinine Venous 0.8 mg/dL [0.4-1.0 mg/dL] (04/19/16 5:42 PM) Screen, Negative Urine NPT (04/19/16 5:40 PM) Urinalysis Most recent to 1 oldest [Reference Range]: UA Color Yellow (04/19/16 5:33 PM) UA Appear Sl Cloudy (04/19/16 5:33 PM) UA pH [5.0-8.0] 8.0 (04/19/16 5:33 PM) UA Leuk Est Negative [Negative] (04/19/16 5:33 PM) UA Nitrite Negative [Negative] (04/19/16 5:33 PM) UA Protein Negative [Negative] (04/19/16 5:33 PM) UA Glucose Negative [Negative] (04/19/16 5:33 PM) UA Ketones Negative [Negative] (04/19/16 5:33 PM) UA Urobilinogen Negative [<1.0] (04/19/16 5:33 PM) UA Bili [Negative] Negative (04/19/16 5:33 PM) UA Blood [Negative] Pos 3+ *ABN* (04/19/16 5:33 PM) UA Spec Grav 1.020 [1.003-1.030] (04/19/16 5:33 PM) Type Clean Catch (04/19/16 5:33 PM) UA WBC [0-4] 2-5 (04/19/16 5:33 PM) UA RBC [0-2 /HPF] >50 /HPF *ABN* (04/19/16 5:33 PM) Epithelial Cells 2-5 (04/19/16 5:33 PM) UA Bacteria Rare (04/19/16 5:33 PM) UA Mucous Present (04/19/16 5:33 PM) Immunizations Vaccine Date Refusal Reason tetanus-diphth toxoids [...]
--- OUTSIDE RECORDS SUMMARY | 2016-10-09 11:14 | XMS REPORT | Continuity of Care Document ---
Author Author [facility] Organization [facility] Address Unknown Phone Unavailable Support Name Relationship Address Phone NEOSHAMA BAGLEY Caregiver [facility] [address], [place] [phone] SARBJIT MONTE MD Caregiver [address], [place] [phone] DEBRADAVIDE BAUTISTAAE Next Of Kin [address] [place] [address] Insurance Providers Payer Name Policy Number Subscriber Name Relationship Self Pay Troy Aviles 18 Self Advance Directives Directive Response Recorded Date/Time Advanced Directives Type None 05/01/14 8:10pm Problems Medical Problems Problem Onset Date Status Ulcerative colitis Unknown Active Ulcerative colitis Unknown Active Ulcerative colitis Unknown Active Atrial fibrillation Unknown Active Chronic abdominal pain Unknown Active Methamphetamine use Unknown Active Ulcerative colitis Unknown Active Cellulitis Unknown Active Cellulitis Unknown Active Abscess Unknown Active Medications Medication Dose Route Sig Days/Qty Instructions Order Date Discontinued Date Status [None] 05/13/08 11/09/09 Discontinued Albuterol Sulfate 8.5 Gm IH NEEDED 04/26/10 11/06/10 Discontinued Prednisone NEEDED 04/26/10 11/06/10 Discontinued [No Routine Meds] 02/27/14 03/10/14 Discontinued Prochlorperazine Maleate 10 Mg PO FOUR TIMES DAILY 30 Qty 02/27/1402/13 Discontinued Mesalamine 800 Mg PO FOUR TIMES DAILY 03/10/14 Active Sulfamethoxazole/Trimethoprim 1 Tab PO TWICE A DAY 14 Qty 04/28/14 Active Cephalexin 500 Mg PO THREE TIMES A DAY 21 Qty 04/28/14 Active Hydrocodone/Acetaminophen 1-2 Tab PO Every 6 Hours PRN PAIN 10 Qty Active Social History Social History Problem Response Recorded Date/Time Smoking Status Current every day smoker 01/05/2014 9:04pm When did patient START smoking? age 10 05/01/2014 8:23pm Chewing Tobacco Status No 05/01/2014 8:23pm Hx Substance Use Y 8/27/14 relapse meth 05/01/2014 8:23pm Hx Alcohol Use No 05/01/2014 8:23pm Hospital Discharge Instructions No hospital discharge instructions. Plan of Care No plan of care. Functional Status Query Response Date Recorded Physical Hygiene Self May 01, 2014 8:23pm Disabilities Visual May 01, 2014 8:23pm Devices Used Glasses May 01, 2014 8:23pm Dressing Self May 01, 2014 8:23pm Ambulation Self January 05, 2014 9:04pm Diet Self May 01, 2014 8:23pm Mental Status Alert Oriented January 05, 2014 9:04pm Disabilities Visual May 01, 2014 8:23pm Devices Used Glasses May 01, 2014 8:23pm Physical Hygiene Self May 01, 2014 8:23pm Dressing Self May 01, 2014 8:23pm Ambulation Self January 05, 2014 9:04pm Diet Self May 01, 2014 8:23pm Allergies, Adverse Reactions, Alerts Allergen Type Severity Reaction Status Last Updated Ibuprofen Adverse Reaction Mild BLEEDING Active 05/01/14 Peanut Oil Allergy Severe ANAPHYLACTIC REACTION Active 05/01/14 Ketorolac Adverse Reaction Intermediate ULCERS/INCREASED BLEEDING Active 05/01/14 Tomato Allergy Unknown Active 05/01/14 Immunizations Name Given Type Hx Influenza Vaccination No Historical Hx Tetanus, Diptheria, Pertussis Y PT STATES "WITHIN THE LAST 5 YEARS" Historical Hx Influenza Vaccination No Historical Hx Tetanus, Diptheria, Pertussis Y PT STATES "WITHIN THE LAST 5 YEARS" Historical Vital Signs Acute Vital Signs Vital Response Date/Time Temperature (Fahrenheit) 96.8 deg F (96.8 - 99.1) Temperature (Calculated Celsius) 36.81766 degrees C (36.0 - 37.3) Pulse Rate (adult) 76 bpm (60 - 100) Respiratory Rate 20 breaths/min (10 - 20) O2 Sat by Pulse Oximetry 95 % (90 - 100) Blood Pressure 120/81 mm Hg Height 5 ft 7 in Weight 196 lb Body Mass Index 30.0 kg/m^2 Results [...] Has specimen been collected/obtained? Y Urine Specific [place] March 10, 2014 7:28pm >=1.030 H - [...] Report February 27, 2014 4:08am REFERENCE LAB [id number] - Anti-Nuclear Antibody (LAB) March 01, 2008 [...] 2014 3:40pm Name: TROY AVILES Unit #: [id number] : 1985 Sex: F Loc / Svc: ED DOS: Signed Report #: [id number] DIAGNOSTIC IMAGING REPORT TYPE OF EXAM: KUB [...] ADDON completed 02/27/14 TX/PRO/DX INJ SAME DRUG HUMAN RESOURCES BENEFITS ADMINISTRATOR completed 02/27/14 HYDRATE IV INFUSION ADD-ON completed 02/27/14 THER/PROPH/DIAG INJ IV PUSH completed 03/10/14 TX/PRO/DX INJ NEW DRUG ADDON completed 03/10/14 TX/PRO/DX INJ SAME DRUG HUMAN RESOURCES BENEFITS ADMINISTRATOR completed 03/10/14 HYDRATE IV INFUSION ADD-ON completed 03/10/14 Encounters Encounter Location Date/Time Departed Emergency Room [facility] 05/01/14 6:45pm Departed Emergency Room [facility] 04/28/14 2:47pm Departed Emergency Room [facility] 03/10/14 5:24pm Departed Emergency Room [facility] 02/27/14 12:25am Departed Emergency Room [facility] 02/07/14 10:36am Recent Diagnosis
--- OUTSIDE RECORDS SUMMARY | 2016-10-09 11:14 | XMS REPORT | Continuity of Care Document ---
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 Plan of Care No plan of care. Functional Status Query Response Date Recorded Physical Hygiene Self June 15, 2014 4:41pm Ambulation Self January 05, 2014 9:04pm Mental Status Alert Oriented January 05, 2014 9:04pm Physical Hygiene Self June 15, 2014 4:41pm Ambulation Self January 05, 2014 9:04pm Allergies, Adverse Reactions, Alerts Allergen Type Severity Reaction Status Last Updated Ibuprofen Adverse Reaction Mild BLEEDING Active 07/15/14 Peanut Oil Allergy Severe ANAPHYLACTIC REACTION Active 07/15/14 Ketorolac Adverse Reaction Intermediate ULCERS/INCREASED BLEEDING Active 07/15/14 Tomato Allergy Unknown Active 07/15/14 Immunizations Name Given Type Hx Influenza Vaccination No Historical Hx Tetanus, Diptheria, Pertussis Yes Historical Hx Influenza Vaccination No Historical Hx Tetanus, Diptheria, Pertussis Yes Historical Vital Signs Acute Vital Signs Vital Response Date/Time Temperature (Fahrenheit) 96.8 deg F (96.8 - 99.1) Temperature (Calculated Celsius) 36.70791 degrees C (36.0 - 37.3) Pulse Rate (adult) 98 bpm (60 - 100) Respiratory Rate 18 breaths/min (10 - 20) O2 Sat by Pulse Oximetry 99 % (90 - 100) Blood Pressure 138/64 mm Hg Height 5 ft 6 in Weight 197 lb Body Mass Index 31.0 kg/m^2 Results Test Source Date Result Interp. Ref. Range Comments Alanine Aminotransferase (ALT/SGPT) June 15, 2014 4:49pm 30 U/L N 9- 52 Albumin June 15, 2014 4:49pm 5.0 G/DL N 3.5-5.0 Albumin/Globulin Ratio June 15, 2014 4:49pm 1.7 RATIO N 1.1-2.2 Alkaline Phosphatase June 15, 2014 4:49pm 95 U/L N 38-126 Amylase Level June 15, 2014 4:49pm 75 U/L N 30-110 Anion Gap June 15, 2014 4:49pm 13 MEQ/L N 5-15 Arterial Blood Base Excess [...] Percent) ROOM AIR Aspartate Amino Transf (AST/SGOT) June 15, 2014 4:49pm 17 U/L N 14- 36 BUN/Creatinine Ratio June 15, 2014 4:49pm 17 RATIO N 6-26 Basophils # (Auto) June 15, 2014 4:49pm 0.0 T/MM3 N 0-0.2 Basophils (%) (Auto) June 15, 2014 4:49pm 0.4 % N 0-2 Blood Gas Oxygen Saturation May 13, 2008 4:15pm 97.0 % N 95.0-98.0 Is the patient on room air? YWhat is the Source? (Liters or Percent) ROOM AIR Blood Gas Tidal Volume May 13, 2008 4:15pm Not Performed 0-1200 Blood Gas Vent Rate May 13, 2008 4:15pm Not Performed 0-30 Blood Urea Nitrogen June 15, 2014 4:49pm 12.0 MG/DL N 7-17 Calcium Level June 15, 2014 4:49pm 10.1 MG/DL N 8.4-10.2 Calculated Osmolality June 15, 2014 4:49pm 275 MOSM/KG N 261-280 Carbon Dioxide Level June 15, 2014 4:49pm 24 MEQ/L N 22-30 Chlamydia Direct Antigen Assay October 31, 2008 11:38am Negative - Chloride Level June 15, 2014 4:49pm 106 MEQ/L N 98-107 Creatinine June 15, 2014 4:49pm 0.7 MG/DL N 0.7-1.2 Eosinophils # (Auto) June 15, 2014 4:49pm 0.1 T/MM3 N 0-0.5 Eosinophils (%) (Auto) June 15, 2014 4:49pm 0.7 % N 0-4 Erythrocyte Sedimentation Rate December 19, 2008 9:17pm 8 MM/HR - Globulin June 15, 2014 4:49pm 3.0 G/DL N 2.4-3.6 Glucose Level June 15, 2014 4:49pm 92 MG/DL N 65-110 Hematocrit June 15, 2014 4:49pm 39.1 % N 36-46 Hemoglobin June 15, 2014 4:49pm 12.9 GM/DL N 12-16 Lipase June 15, 2014 4:49pm 162 U/L N 23-300 Lymphocytes # (Auto) June 15, 2014 4:49pm 2.6 T/MM3 N 1-4.8 Lymphocytes (%) (Auto) June 15, 2014 4:49pm 27.3 % N 23-45 Magnesium Level December 19, 2008 9:17pm 2.0 MG/DL N 1.6-2.3 Mean Corpuscular Hemoglobin June 15, 2014 4:49pm 28.0 UUG N 26-34 Mean Corpuscular Hemoglobin Concent June 15, 2014 4:49pm 33.0 GM/DL N 31-37 Mean Corpuscular Volume June 15, 2014 4:49pm 85.0 UM3 N 80-100 Mean Platelet Volume June 15, 2014 4:49pm 9.7 UM3 N 9.4-12.4 Monocytes # (Auto) June 15, 2014 4:49pm 0.5 T/MM3 N 0-0.8 Monocytes (%) (Auto) June 15, 2014 4:49pm 5.2 % N 0-9.0 Neutrophils # (Auto) June 15, 2014 4:49pm 6.3 T/MM3 N 1.8-7.7 Neutrophils (%) (Auto) June 15, 2014 4:49pm 66.3 % H 33-66 Platelet Count June 15, 2014 4:49pm 399 T/MM3 N 130-400 Potassium Level June 15, 2014 4:49pm 4.2 MEQ/L N 3.6-5 RDW Standard Deviation June 15, 2014 4:49pm 43.3 FL N 36.9-50.2 Red Blood Count June 15, 2014 4:49pm 4.60 M/MM3 N 4.00-5.20 Sodium Level June 15, 2014 4:49pm 143 MEQ/L N 134-144 Thyroid Stimulating Hormone (TSH) April 26, 2010 10:00am 1.87 MIU/ML N 0.47-4.68 Total Bilirubin June 15, 2014 4:49pm 0.60 MG/DL N 0.20-1.30 Total Protein June 15, 2014 4:49pm 8.0 G/DL N 6.3-8.2 Troponin I February 27, 2014 12:45am < 0.012 ng/ml 0-0.12 Urine Amorphous Urates March 10, 2014 7:28pm Moderate - Has specimen been collected/obtained? Y Urine Bacteria March 10, 2014 7:28pm Trace H - Has specimen been collected/obtained? Y Urine Bilirubin June 15, 2014 5:15pm Negative - Has specimen been collected/obtained? Y Urine Blood June 15, 2014 5:15pm Trace-intact H - Has specimen been collected/obtained? Y Urine Collection Type June 15, 2014 5:15pm Cleancatch-midstream - Has specimen been collected/obtained? Y Urine Color June 15, 2014 5:15pm Yellow - Has specimen been collected/obtained? Y Urine Culture Indicated April 26, 2010 9:25am Cult not set up - Has specimen been collected/obtained? Y Urine Glucose (UA) June 15, 2014 5:15pm Negative - Has specimen been collected/obtained? Y Urine Ketones June 15, 2014 5:15pm Negative - Has specimen been collected/obtained? Y Urine Leukocyte Esterase June 15, 2014 5:15pm Negative - Has specimen been collected/obtained? Y Urine Mucus March 10, 2014 7:28pm Present - Has specimen been collected/obtained? Y Urine Nitrite June 15, 2014 5:15pm Negative - Has specimen been collected/obtained? Y Urine Protein June 15, 2014 5:15pm Negative - Has specimen been collected/obtained? Y Urine RBC March 10, 2014 7:28pm 0-1 /HPF - Has specimen been collected/obtained? Y Urine Specific Equality June 15, 2014 5:15pm >=1.030 H - Has specimen been collected/obtained? Y Urine Squamous Epithelial Cells March 10, 2014 7:28pm 0-5 - Has specimen been collected/obtained? Y Urine Transitional Epithelial Cells April 26, 2010 9:25am 1-3 /HPF - Has specimen been collected/obtained? Y Urine Turbidity June 15, 2014 5:15pm Clear - Has specimen been collected/obtained? Y Urine Urobilinogen June 15, 2014 5:15pm 0.2 EU/DL - Has specimen been collected/obtained? Y Urine WBC March 10, 2014 7:28pm 1-3 /HPF - Has specimen been collected/obtained? Y Urine pH June 15, 2014 5:15pm 6.0 - Has specimen been collected/ obtained? Y White Blood Count June 15, 2014 4:49pm 9.5 T/MM3 N 4.5-11.0 Chemistry Specimen Hemolysis June 15, 2014 4:49pm < 15 0-25 0-25 : No Hemolysis.26-70: [...] (Liters or Percent) ROOM AIR Urinalysis Comment June 15, 2014 5:15pm Microscopic not ind. - Has specimen been collected/obtained? Y Lab Scanned Report February 27, 2014 4:08am REFERENCE LAB [id number] - Anti-Nuclear Antibody (LAB) March 01, 2008 12:35am Sent out - Turbidity June 15, 2014 4:49pm < 20 0-20 Glomerular Filtration Rate Calc June 15, 2014 4:49pm 98 - Immature Granulocyte # (Auto) June 15, 2014 4:49pm 0.01 T/MM3 N 0.00 -0.03 Immature Granulocyte % (Auto) June 15, 2014 4:49pm 0.1 % N 0.0-0.5 Arterial Blood pO2 at Patient Temp May 13, 2008 4:15pm 84 MMHG N 80 -100 Is the patient on room air? YWhat is the Source? (Liters or Percent) ROOM AIR Icterus Index June 15, 2014 4:49pm < 2 0-7 Wet Prep Cervix October 31, 2008 11:38am Gram Stain Hip, Non-Surgical Site-Right April 28, 2014 3:40pm Name: TROY AVILES Unit #: [id number] : 1985 Sex: F Loc / [facility] [place]: ED DOS: 06/15/14 Signed Report #: [id number] DIAGNOSTIC IMAGING REPORT TYPE OF EXAM: CT RENAL W/WO CONTRAST Dictated By: POP SAUCEDA MD INDICATION: ITS.REASON CT RENAL W/WO CONTRAST: Comparison: January 05, 2014 Technique: Axial CT images were performed through the abdomen and pelvis before and after the administration of intravenous contrast. Delayed postcontrast images were also obtained. Contrast: Omnipaque 300 100 mL Findings: The lung bases are clear. The unenhanced liver is grossly normal. Gallbladder is unremarkable. The spleen, pancreas and adrenal glands are normal. Kidneys are normal without evidence of stone disease or hydronephrosis. No ureteral stones. Pelvic phleboliths. Postcontrast images show no enhancing liver lesions or masses. Kidneys enhance normally. No abdominal or pelvic lymphadenopathy. The appendix is normal. No enhancing bladder masses. No free fluid. The small and large bowel show no significant abnormality. Bone windows are unremarkable. Delayed postcontrast images show normal excretion of contrast by the kidneys. Ureters are normal in course and caliber. Partially opacified urinary bladder is unremarkable. Impression: Negative exam. There is a preliminary report by virtual radiologic. . 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
--- OUTSIDE RECORDS SUMMARY | 2016-10-09 11:14 | XMS REPORT | Continuity of Care Document ---
Author Author [facility] Organization [facility] Address Unknown Phone Unavailable Support Name Relationship Address Phone LEVAR SEO MD Caregiver [address] [place] [address] SARBJIT MONTE MD Caregiver [address] [place] [phone] TORO SIMMONS Next Of Kin [address] [place], [place] [phone] Insurance Providers Payer Name Policy Number Subscriber Name Relationship Self Pay Troy Aviles 18 Self Advance Directives Directive Response Recorded Date/Time Advanced Directives Type None 06/15/14 4:40pm Problems Medical Problems Problem Onset Date Status [...] Mg PO FOUR TIMES DAILY 03/10/14 Active Sumatriptan Succinate 1 Tab PO EVERY TWO HOURS For HEADACHE 20 Qty 1 PO Q 2 HRS PRN HEADACHE UP TO MAX OF 4 TABS IN 24 HOURS 05/18/14 Active Hydrocodone/Acetaminophen 1 Tab PO EVERY 4-6 HOURS PRN PAIN 15 Qty Active Social History Social History Problem [...] Physical Hygiene Self June 15, 2014 4:41pm Disabilities None June 15, 2014 4:41pm Devices Used None June 15, 2014 4:41pm Dressing Self June 15, 2014 4:41pm Ambulation Self January 05, 2014 9:04pm Diet Self June 15, 2014 4:41pm Mental Status Alert Oriented January 05, 2014 9:04pm Disabilities None June 15, 2014 4:41pm Devices Used None June 15, 2014 4:41pm Physical Hygiene Self June 15, 2014 4:41pm Dressing Self June 15, 2014 4:41pm Ambulation Self January 05, 2014 9:04pm Diet Self June 15, 2014 4:41pm Allergies, Adverse Reactions, Alerts Allergen Type Severity Reaction Status Last Updated Ibuprofen Adverse Reaction Mild BLEEDING Active 06/15/14 Peanut Oil Allergy Severe ANAPHYLACTIC REACTION Active 06/08/14 Ketorolac Adverse Reaction Intermediate ULCERS/INCREASED BLEEDING Active 06/08/14 Tomato Allergy Unknown Active 06/08/14 Immunizations Name Given Type Hx Influenza Vaccination No Historical Hx Tetanus, Diptheria, Pertussis Yes Historical Hx Influenza Vaccination No Historical Hx Tetanus, Diptheria, Pertussis Yes Historical Vital Signs Acute Vital Signs Vital Response Date/Time Temperature (Fahrenheit) 96.8 deg F (96.8 - 99.1) Temperature (Calculated Celsius) 36.19340 degrees C (36.0 - 37.3) Pulse Rate (adult) 98 bpm (60 - 100) Respiratory Rate 22 breaths/min (10 - 20) O2 Sat by Pulse Oximetry 92 % (90 - 100) Oxygen Flow Rate 2 L/min Blood Pressure 120/59 mm Hg Height 5 ft 6.5 in Weight 194 lb Body Mass Index 30.0 kg/m^2 Results [...] Has specimen been collected/obtained? Y Urine Specific [place] June 15, 2014 5:15pm >=1.030 H - [...] Report February 27, 2014 4:08am REFERENCE LAB [id number] - Anti-Nuclear Antibody (LAB) March 01, 2008 [...] 2014 3:40pm Procedures Procedure Status Date Provider(s) DRAINAGE OF SKIN ABSCESS completed 05/01/14 SHAMA LARSON DO THER/PROPH/DIAG INJ SC/IM completed 05/17/14 THER/PROPH/DIAG INJ SC/IM completed 05/17/14 Encounters Encounter Location Date/Time Departed Emergency Room [facility] 06/15/14 4:17pm Departed Emergency Room [facility] 06/08/14 5:33pm Departed Emergency Room [facility] 05/17/14 11:22pm Departed Emergency Room [facility] 05/01/14 6:45pm Departed Emergency Room [facility] 04/28/14 2:47pm Recent Diagnosis
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
--- OUTSIDE RECORDS SUMMARY | 2016-10-09 11:18 | XMS REPORT | Continuity of Care Document ---
Author Author [facility] Organization [facility] Address Unknown Phone Unavailable Support Name Relationship Address Phone SARBJIT MONTE MD Caregiver [address] [place] [phone] JULIAN LE MD Caregiver [address] [place] [phone] TORO SIMMONS Next Of Kin [address] [place], [place] [id number] Insurance Providers Payer Name Policy Number Subscriber Name Relationship Self Pay Troy Aviles 16 Self Advance Directives Directive Response Recorded Date/Time Advanced Directives Type None 06/08/14 6:45pm Problems Medical Problems Problem Onset Date Status Ulcerative colitis Unknown Active Ulcerative colitis Unknown Active Ulcerative colitis Unknown Active Atrial fibrillation Unknown Active Chronic abdominal pain Unknown Active Methamphetamine use Unknown Active Ulcerative colitis Unknown Active Cellulitis Unknown Active Cellulitis Unknown Active Abscess Unknown Active Migraine Unknown Active Migraine Unknown Active Migraine equivalent Unknown Active Migraine equivalent Unknown Active Medications Medication Dose Route Sig [...] Hx Substance Use Y 02/26/14 relapse meth 06/08/2014 6:45pm Hx Alcohol Use No 06/08/2014 6:45pm Tobacco Usage smoke 01/05/2014 11:38pm Query Response Start Date Stop Date Smoking Status Current every day smoker Hospital Discharge Instructions No hospital discharge instructions. Plan of Care No plan of care. Functional Status Query Response Date Recorded Physical Hygiene Self June 08, 2014 6:45pm Disabilities None June 08, 2014 6:45pm Devices Used None June 08, 2014 6:45pm Dressing Self June 08, 2014 6:45pm Ambulation Self January 05, 2014 9:04pm Diet Self June 08, 2014 6:45pm Mental Status Alert Oriented January 05, 2014 9:04pm Disabilities None June 08, 2014 6:45pm Devices Used None June 08, 2014 6:45pm Physical Hygiene Self June 08, 2014 6:45pm Dressing Self June 08, 2014 6:45pm Ambulation Self January 05, 2014 9:04pm Diet Self June 08, 2014 6:45pm Allergies, Adverse Reactions, Alerts Allergen Type Severity Reaction Status Last Updated Ibuprofen Adverse Reaction Mild BLEEDING Active 06/08/14 Peanut Oil Allergy Severe ANAPHYLACTIC REACTION Active 06/08/14 Ketorolac Adverse Reaction Intermediate ULCERS/INCREASED BLEEDING Active 06/08/14 Tomato Allergy Unknown Active 06/08/14 Immunizations Name Given Type Hx Influenza Vaccination No Historical Hx Tetanus, Diptheria, Pertussis Yes Historical Hx Influenza Vaccination No Historical Hx Tetanus, Diptheria, Pertussis Yes Historical Vital Signs Acute Vital Signs Vital Response Date/Time Temperature (Fahrenheit) 97.7 deg F (96.8 - 99.1) Temperature (Calculated Celsius) 36.05059 degrees C (36.0 - 37.3) Pulse Rate (adult) 96 bpm (60 - 100) Respiratory Rate 20 breaths/min (10 - 20) O2 Sat by Pulse Oximetry 100 % (90 - 100) Oxygen Flow Rate 2 L/min Blood Pressure 122/61 mm Hg Height 5 ft 6.5 in Weight 197 lb Body Mass Index [...] Has specimen been collected/obtained? Y Urine Specific [place] March 10, 2014 7:28pm >=1.030 H - [...] Report February 27, 2014 4:08am REFERENCE LAB [id number] - Anti-Nuclear Antibody (LAB) March 01, 2008 [...] Date Provider(s) THER/PROPH/DIAG INJ IV PUSH completed 03/10/14 TX/PRO/DX INJ NEW DRUG ADDON completed 03/10/14 TX/PRO/DX INJ SAME DRUG DRILLING MACHINE OPERATOR completed 03/10/14 HYDRATE IV INFUSION ADD-ON completed 03/10/14 DRAINAGE OF SKIN ABSCESS completed 05/01/14 SHAMA LARSON DO THER/PROPH/DIAG INJ SC/IM completed 05/17/14 THER/PROPH/DIAG INJ SC/IM completed 05/17/14 Encounters Encounter Location Date/Time Registered Emergency Room [facility] 06/08/14 5:33pm Departed Emergency Room [facility] 05/17/14 11:22pm Departed Emergency Room [facility] 05/01/14 6:45pm Departed Emergency Room [facility] 04/28/14 2:47pm Departed Emergency Room [facility] 03/10/14 5:24pm Recent Diagnosis
--- OUTSIDE RECORDS SUMMARY | 2016-10-09 11:18 | XMS REPORT | Continuity of Care Document ---
Author Author [facility] Organization [facility] Address Unknown Phone Unavailable Support Name Relationship Address Phone SARBJIT MONTE MD Caregiver [address] [place] [phone] PUJA DEWEY MD Caregiver [address] [place] [phone] TORO SIMMONS Next Of Kin [address] [place], [place] [id number] Insurance Providers Payer Name Policy Number Subscriber [...] Anxiety Unknown Active Chest pain Unknown Active Medications Medication Dose Route [...] Hx Substance Use Y PAST PT REPORTS 08/28/2014 10:45am Hx Alcohol Use No 08/28/2014 10:45am Tobacco Usage smoke 07/23/2014 12:31pm Query Response Start Date Stop Date Smoking Status Current every day smoker Hospital Discharge Instructions No hospital discharge instructions. Plan of Care No plan of care. Functional Status Query Response Date Recorded Physical Hygiene Self August 28, 2014 10:45am Disabilities None August 28, 2014 10:45am Devices Used None August 28, 2014 10:45am Dressing Self August 28, 2014 10:45am Ambulation Self January 05, 2014 9:04pm Diet Self August 28, 2014 10:45am Mental Status Alert Oriented January 05, 2014 9:04pm Disabilities None August 28, 2014 10:45am Devices Used None August 28, 2014 10:45am Physical Hygiene Self August 28, 2014 10:45am Dressing Self August 28, 2014 10:45am Ambulation Self January 05, 2014 9:04pm Diet Self August 28, 2014 10:45am Allergies, Adverse Reactions, Alerts Allergen Type Severity [...] Vital Signs Vital Response Date/Time Temperature (Fahrenheit) 97.4 deg F (96.8 - 99.1) Temperature (Calculated Celsius) 36.60414 degrees C (36.0 - 37.3) Pulse Rate (adult) 86 bpm (60 - 100) Respiratory Rate 16 breaths/min (10 - 20) O2 Sat by Pulse Oximetry 99 % (90 - 100) Blood Pressure 111/75 mm Hg Height 5 ft 6 in Weight 194 lb Body Mass Index 31.0 kg/m^2 Results [...] Report July 29, 2014 4:27pm REFERENCE LAB [id number] - Lipase August 19, 2014 9:06pm 273 [...] 2014 10:05am < 20 0-20 Urinalysis Comment August 19, [...] Has specimen been collected/obtained? Y Urine Specific [place] August 19, 2014 9:42pm 1.010 L - [...] 2014 3:40pm Name: TROY AVILES Unit #: [id number] : 1985 Sex: F Loc / Svc: ED DOS: 08/28/14 Signed Report #: [id number] DIAGNOSTIC IMAGING REPORT TYPE OF EXAM: CHEST, [...] ADDON completed 06/15/14 TX/PRO/DX INJ SAME DRUG PUBLIC INFORMATION SPECIALIST completed 06/15/14 HYDRATE IV INFUSION ADD-ON completed [...] ADDON completed 07/30/14 TX/PRO/DX INJ SAME DRUG PUBLIC INFORMATION SPECIALIST completed 07/30/14 Encounters Encounter Location Date/Time Departed Emergency Room [facility] 08/28/14 9:36am Departed Emergency Room [facility] 08/19/14 7:04pm Departed Emergency Room [facility] 07/30/14 9:52pm Departed Emergency Room [facility] 07/23/14 11:53am Departed Emergency Room [facility] 07/15/14 3:56pm Departed Emergency Room [facility] 06/15/14 4:17pm Departed Emergency Room [facility] 06/08/14 5:33pm Recent Diagnosis
--- OUTSIDE RECORDS SUMMARY | 2016-10-09 11:18 | XMS REPORT | Continuity of Care Document ---
Author Author [facility] Organization [facility] Address Unknown Phone Unavailable Support Name Relationship Address Phone SARBJIT MONTE MD Caregiver [address] [place] [phone] PUJA DEWEY MD Caregiver [address] [place] [phone] TORO SIMMONS Next Of Kin [address] [place], [place] [id number] Insurance Providers Payer Name Policy Number Subscriber [...] pain Unknown Active Atrial fibrillation Unknown Active Medications Medication Dose Route Sig [...] Mg PO DAILY 20 Qty 07/23/14 Active Prochlorperazine Maleate 1 Tab PO Every 8 Hours PRN NAUSEA 10 Qty 07/23 Active Social History Social History Problem Response Recorded Date/Time Hx Substance Use Y JUNE 2014 METH USE 07/23/2014 12:05pm Hx Alcohol Use No 07/23/2014 12:05pm Tobacco Usage smoke 07/23/2014 12:31pm Query Response Start Date Stop Date Smoking Status Current every day smoker Hospital Discharge Instructions No hospital discharge instructions. Plan of Care No plan of care. Functional Status Query Response Date Recorded Physical Hygiene Self July 23, 2014 12:05pm Disabilities None July 23, 2014 12:05pm Devices Used None July 23, 2014 12:05pm Dressing Self July 23, 2014 12:05pm Ambulation Self January 05, 2014 9:04pm Diet Self July 23, 2014 12:05pm Mental Status Alert Oriented January 05, 2014 9:04pm Disabilities None July 23, 2014 12:05pm Devices Used None July 23, 2014 12:05pm Physical Hygiene Self July 23, 2014 12:05pm Dressing Self July 23, 2014 12:05pm Ambulation Self January 05, 2014 9:04pm Diet Self July 23, 2014 12:05pm Allergies, Adverse Reactions, Alerts Allergen Type Severity Reaction Status Last Updated Ibuprofen Adverse Reaction Mild BLEEDING Active 07/23/14 Peanut Oil Allergy Severe ANAPHYLACTIC REACTION Active 07/23/14 Ketorolac Adverse Reaction Intermediate ULCERS/INCREASED BLEEDING Active 07/23/14 Tomato Allergy Unknown Active 07/23/14 Immunizations Name Given Type Hx Influenza Vaccination No Historical Hx Tetanus, Diptheria, Pertussis Yes Historical Hx Influenza Vaccination No Historical Hx Tetanus, Diptheria, Pertussis Yes Historical Vital Signs Acute Vital Signs Vital Response Date/Time Temperature (Fahrenheit) 98.1 deg F (96.8 - 99.1) Temperature (Calculated Celsius) 36.69865 degrees C (36.0 - 37.3) Pulse Rate (adult) 76 bpm (60 - 100) Respiratory Rate 16 breaths/min (10 - 20) O2 Sat by Pulse Oximetry 100 % (90 - 100) Blood Pressure 109/61 mm Hg Height 5 ft 6 in Weight 194 lb Body Mass Index 31.0 kg/m^2 Results Test Source Date Result Interp. Ref. Range Comments Alanine Aminotransferase (ALT/SGPT) July 23, 2014 12:13pm 21 U/L N 9- 52 Albumin July 23, 2014 12:13pm 4.5 G/DL N 3.5-5.0 Albumin/Globulin Ratio July 23, 2014 12:13pm 1.6 RATIO N 1.1-2.2 Alkaline Phosphatase July 23, 2014 12:13pm 92 U/L N 38-126 Amylase Level July 23, 2014 12:13pm 50 U/L N 30-110 Anion Gap July 23, 2014 12:13pm 9 MEQ/L N 5-15 Arterial Blood Base Excess [...] Percent) ROOM AIR Aspartate Amino Transf (AST/SGOT) July 23, 2014 12:13pm 16 U/L N 14- 36 BUN/Creatinine Ratio July 23, 2014 12:13pm 8 RATIO N 6-26 Basophils # (Auto) July 23, 2014 12:13pm 0.1 T/MM3 N 0-0.2 Basophils (%) (Auto) July 23, 2014 12:13pm 0.6 % N 0-2 Blood Gas Oxygen Saturation May 13, 2008 4:15pm 97.0 % N 95.0-98.0 Is the patient on room air? YWhat is the Source? (Liters or Percent) ROOM AIR Blood Gas Tidal Volume May 13, 2008 4:15pm Not Performed 0-1200 Blood Gas Vent Rate May 13, 2008 4:15pm Not Performed 0-30 Blood Urea Nitrogen July 23, 2014 12:13pm 6.0 MG/DL L 7-17 Calcium Level July 23, 2014 12:13pm 9.6 MG/DL N 8.4-10.2 Calculated Osmolality July 23, 2014 12:13pm 270 MOSM/KG N 261-280 Carbon Dioxide Level July 23, 2014 12:13pm 25 MEQ/L N 22-30 Chlamydia Direct Antigen Assay October 31, 2008 11:38am Negative - Chloride Level July 23, 2014 12:13pm 108 MEQ/L H 98-107 Creatinine July 23, 2014 12:13pm 0.8 MG/DL N 0.7-1.2 Eosinophils # (Auto) July 23, 2014 12:13pm 0.2 T/MM3 N 0-0.5 Eosinophils (%) (Auto) July 23, 2014 12:13pm 1.8 % N 0-4 Erythrocyte Sedimentation Rate December 19, 2008 9:17pm 8 MM/HR - Globulin July 23, 2014 12:13pm 2.8 G/DL N 2.4-3.6 Glucose Level July 23, 2014 12:13pm 85 MG/DL N 65-110 Hematocrit July 23, 2014 12:13pm 39.6 % N 36-46 Hemoglobin July 23, 2014 12:13pm 12.7 GM/DL N 12-16 Lipase July 23, 2014 12:13pm 77 U/L N 23-300 Lymphocytes # (Auto) July 23, 2014 12:13pm 3.3 T/MM3 N 1-4.8 Lymphocytes (%) (Auto) July 23, 2014 12:13pm 32.5 % N 23-45 Magnesium Level July 23, 2014 12:13pm 2.0 MG/DL N 1.6-2.3 Mean Corpuscular Hemoglobin July 23, 2014 12:13pm 27.5 UUG N 26-34 Mean Corpuscular Hemoglobin Concent July 23, 2014 12:13pm 32.1 GM/DL N 31-37 Mean Corpuscular Volume July 23, 2014 12:13pm 85.7 UM3 N 80-100 Mean Platelet Volume July 23, 2014 12:13pm 10.0 UM3 N 9.4-12.4 Monocytes # (Auto) July 23, 2014 12:13pm 0.4 T/MM3 N 0-0.8 Monocytes (%) (Auto) July 23, 2014 12:13pm 4.0 % N 0-9.0 Neutrophils # (Auto) July 23, 2014 12:13pm 6.2 T/MM3 N 1.8-7.7 Neutrophils (%) (Auto) July 23, 2014 12:13pm 61.0 % N 33-66 Platelet Count July 23, 2014 12:13pm 359 T/MM3 N 130-400 Potassium Level July 23, 2014 12:13pm 3.6 MEQ/L N 3.6-5 RDW Standard Deviation July 23, 2014 12:13pm 42.6 FL N 36.9-50.2 Red Blood Count July 23, 2014 12:13pm 4.62 M/MM3 N 4.00-5.20 Sodium Level July 23, 2014 12:13pm 142 MEQ/L N 134-144 Thyroid Stimulating Hormone (TSH) July 23, 2014 12:13pm 1.58 MIU/L N 0.47-4.68 Total Bilirubin July 23, 2014 12:13pm 0.30 MG/DL N 0.20-1.30 Total Protein July 23, 2014 12:13pm 7.3 G/DL N 6.3-8.2 Troponin I July 23, 2014 12:13pm < 0.012 ng/ml 0-0.12 Urine Amorphous Urates [...] Has specimen been collected/obtained? Y Urine Specific [place] June 15, 2014 5:15pm >=1.030 H - [...] been collected/ obtained? Y White Blood Count July 23, 2014 12:13pm 10.2 T/MM3 N 4.5-11.0 Chemistry Specimen Hemolysis July 23, 2014 12:13pm 19 N 0-25 0-25: No Hemolysis.26-70: Slight Hemolysis [...] Report February 27, 2014 4:08am REFERENCE LAB [id number] - Anti-Nuclear Antibody (LAB) March 01, 2008 12:35am Sent out - Turbidity July 23, 2014 12:13pm < 20 0-20 Glomerular Filtration Rate Calc July 23, 2014 12:13pm 84 - Immature Granulocyte # (Auto) July 23, 2014 12:13pm 0.01 T/MM3 N 0.00 -0.03 Immature Granulocyte % (Auto) July 23, 2014 12:13pm 0.1 % N 0.0-0.5 Arterial Blood pO2 at Patient Temp May 13, 2008 4:15pm 84 MMHG N 80 -100 Is the patient on room air? YWhat is the Source? (Liters or Percent) ROOM AIR Icterus Index July 23, 2014 12:13pm < 2 0-7 Wet Prep Cervix October 31, 2008 11:38am Gram Stain Hip, Non-Surgical Site-Right April 28, 2014 3:40pm Name: TROY AVILES Unit #: [id number] : [id number] Sex: F Loc / Svc: ED DOS: 07/23/14 Signed Report #: [id number] DIAGNOSTIC IMAGING REPORT TYPE OF EXAM: US GALLBLADDER Dictated By: POP SAUCEDA MD INDICATION: ITS.REASON: right upper quadrant abdominal pain pain in right shoulder blade US GALLBLADDER: Comparison: Renal CT dated June 15, 2014 Findings: Hepatic parenchyma is homogeneous without evidence for focal mass. The gallbladder is normal. There is no wall thickening, pericholecystic fluid, sonographic Fitzgerald's sign or cholelithiasis. Both the intra and extrahepatic biliary system are of normal caliber with the common duct measuring 3 mm in dimension. Visualized portions of the head and body of the pancreas are unremarkable. The right kidney is present without collecting system dilatation. The right kidney measures 11.3 cm in length. Impression: Normal right upper quadrant sonogram. . Procedures Procedure Status Date Provider(s) DRAINAGE OF SKIN ABSCESS completed 05/01/14 SHAMA LARSON DO THER/PROPH/DIAG INJ SC/IM completed 05/17/14 THER/PROPH/DIAG INJ SC/IM completed 05/17/14 HYDRATE IV INFUSION ADD-ON completed 06/15/14 HYDRATE IV INFUSION ADD-ON completed 06/15/14 THER/PROPH/DIAG INJ IV PUSH completed 06/15/14 TX/PRO/DX INJ NEW DRUG ADDON completed 06/15/14 TX/PRO/DX INJ SAME DRUG LAY OUT WORKER completed 06/15/14 Encounters Encounter Location Date/Time Departed Emergency Room [facility] 07/23/14 11:53am Departed Emergency Room [facility] 07/15/14 3:56pm Departed Emergency Room [facility] 06/15/14 4:17pm Departed Emergency Room [facility] 06/08/14 5:33pm Departed Emergency Room [facility] 05/17/14 11:22pm Departed Emergency Room [facility] 05/01/14 6:45pm Departed Emergency Room [facility] 04/28/14 2:47pm Recent Diagnosis
--- OUTSIDE RECORDS SUMMARY | 2016-10-09 11:19 | XMS REPORT | Continuity of Care Document ---
Author Author [facility] Organization [facility] Address Unknown Phone Unavailable Support Name Relationship Address Phone SARBJIT MONTE MD Caregiver [address] [phone] PUJA DEWEY MD Caregiver [address] [place] [place] [phone] TORO SIMMONS Next Of Kin [address] [place], [place] [id number] Insurance Providers Payer Name Policy Number Subscriber Name Relationship Self Pay Troy Aviles 16 Self Advance Directives Directive Response Recorded Date/Time Advanced Directives Type None 07/30/14 9:54pm Problems Medical Problems Problem Onset Date Status [...] fibrillation Unknown Active Chest pain Unknown Active Medications [...] Q4H For ANXIETY/AGITATION 15 Qty 07/31/14 Active Social History Social History Problem Response Recorded Date/Time Hx Substance Use Y PAST PT REPORTS 07/30/2014 10:04pm Hx Alcohol Use No 07/30/2014 10:04pm Tobacco Usage smoke 07/23/2014 12:31pm Query Response Start Date Stop Date Smoking Status Current every day smoker Hospital Discharge Instructions No hospital discharge instructions. Plan of Care No plan of care. Functional Status Query Response Date Recorded Physical Hygiene Self July 30, 2014 10:04pm Disabilities None July 30, 2014 10:04pm Devices Used None July 30, 2014 10:04pm Dressing Self July 30, 2014 10:04pm Ambulation Self January 05, 2014 9:04pm Diet Self July 30, 2014 10:04pm Mental Status Alert Oriented January 05, 2014 9:04pm Disabilities None July 30, 2014 10:04pm Devices Used None July 30, 2014 10:04pm Physical Hygiene Self July 30, 2014 10:04pm Dressing Self July 30, 2014 10:04pm Ambulation Self January 05, 2014 9:04pm Diet Self July 30, 2014 10:04pm Allergies, Adverse Reactions, Alerts Allergen Type Severity Reaction Status Last Updated Ibuprofen Adverse Reaction Mild BLEEDING Active 07/31/14 Peanut Oil Allergy Severe ANAPHYLACTIC REACTION Active 07/23/14 Ketorolac Adverse Reaction Intermediate ULCERS/INCREASED BLEEDING Active 07/31/14 Tomato Allergy Unknown Active 07/23/14 Immunizations Name Given Type Hx Influenza Vaccination No Historical Hx Tetanus, Diptheria, Pertussis Yes Historical Hx Influenza Vaccination No Historical Hx Tetanus, Diptheria, Pertussis Yes Historical Vital Signs Acute Vital Signs Vital Response Date/Time Temperature (Fahrenheit) 97.9 deg F (96.8 - 99.1) Temperature (Calculated Celsius) 36.15041 degrees C (36.0 - 37.3) Pulse Rate (adult) 88 bpm (60 - 100) Respiratory Rate 23 breaths/min (10 - 20) O2 Sat by Pulse Oximetry 97 % (90 - 100) Blood Pressure 119/67 mm Hg Height 5 ft 6.5 in Weight 192 lb Body Mass Index 30.0 kg/m^2 Results Test Source Date Result Interp. Ref. Range Comments Alanine Aminotransferase (ALT/SGPT) July 30, 2014 10:05pm 32 U/L N 9- 52 Albumin July 30, 2014 10:05pm 4.6 G/DL N 3.5-5.0 Albumin/Globulin Ratio July 30, 2014 10:05pm 1.6 RATIO N 1.1-2.2 Alkaline Phosphatase July 30, 2014 10:05pm 85 U/L N 38-126 Amylase Level July 23, 2014 12:13pm 50 U/L N 30-110 Anion Gap July 30, 2014 10:05pm 11 MEQ/L N 5-15 Anti-Nuclear Antibody (LAB) [...] ROOM AIR Aspartate Amino Transf (AST/SGOT) July 30, 2014 10:05pm 19 U/L N 14- 36 BUN/Creatinine Ratio July 30, 2014 10:05pm 19 RATIO N 6-26 Band Neutrophils # July 30, 2014 10:05pm 0.5 T/MM3 - Band Neutrophils % July 30, 2014 10:05pm 3.0 % N 0-6 Basophils # (Auto) July 23, 2014 12:13pm 0.1 T/MM3 N 0-0.2 Basophils # (Manual) July 30, 2014 10:05pm 0.2 T/MM3 N 0-0.2 Basophils % (Manual) July 30, 2014 10:05pm 1.0 % N 0-2 Basophils (%) (Auto) July 23, 2014 12:13pm [...] Not Performed 0-30 Blood Urea Nitrogen July 30, 2014 10:05pm 15.0 MG/DL N 7-17 Calcium Level July 30, 2014 10:05pm 10.2 MG/DL N 8.4-10.2 Calculated Osmolality July 30, 2014 10:05pm 275 MOSM/KG N 261-280 Carbon Dioxide Level July 30, 2014 10:05pm 26 MEQ/L N 22-30 Chemistry Specimen Hemolysis July 30, 2014 10:05pm < 15 0-25 0-25 : No Hemolysis.26-70: [...] 2008 11:38am Negative - Chloride Level July 30, 2014 10:05pm 106 MEQ/L N 98-107 Creatinine July 30, 2014 10:05pm 0.8 MG/DL N 0.7-1.2 Eosinophils # (Auto) July 23, 2014 12:13pm 0.2 T/MM3 N 0-0.5 Eosinophils (%) (Auto) July 23, 2014 12:13pm 1.8 % N 0-4 Erythrocyte Sedimentation Rate December 19, 2008 9:17pm 8 MM/HR - Globulin July 30, 2014 10:05pm 2.9 G/DL N 2.4-3.6 Glomerular Filtration Rate Calc July 30, 2014 10:05pm 84 - Glucose Level July 30, 2014 10:05pm 88 MG/DL N 65-110 Hematocrit July 30, 2014 10:05pm 35.5 % L 36-46 Hemoglobin July 30, 2014 10:05pm 12.0 GM/DL N 12-16 Icterus Index July 30, 2014 10:05pm < 2 0-7 Immature Granulocyte # (Auto) July 23, 2014 12:13pm 0.01 T/MM3 N 0.00 -0.03 Immature Granulocyte % (Auto) July 23, 2014 12:13pm 0.1 % N 0.0-0.5 Lab Scanned Report July 29, 2014 4:27pm REFERENCE LAB [id number] - Lipase July 23, 2014 12:13pm 77 U/L N 23-300 Lymphocytes # (Auto) July 23, 2014 12:13pm 3.3 T/MM3 N 1-4.8 Lymphocytes # (Manual) July 30, 2014 10:05pm 2.8 T/MM3 N 1-4.8 Lymphocytes % (Manual) July 30, 2014 10:05pm 16.0 % L 23-45 Lymphocytes (%) (Auto) July 23, 2014 12:13pm 32.5 % N 23-45 Magnesium Level July 30, 2014 10:05pm 2.1 MG/DL N 1.6-2.3 Mean Corpuscular Hemoglobin July 30, 2014 10:05pm 27.9 UUG N 26-34 Mean Corpuscular Hemoglobin Concent July 30, 2014 10:05pm 33.8 GM/DL N 31-37 Mean Corpuscular Volume July 30, 2014 10:05pm 82.6 UM3 N 80-100 Mean Platelet Volume July 30, 2014 10:05pm 9.3 UM3 L 9.4-12.4 Monocytes # (Auto) July 23, 2014 12:13pm 0.4 T/MM3 N 0-0.8 Monocytes # (Manual) July 30, 2014 10:05pm 0.2 T/MM3 N 0-0.8 Monocytes % (Manual) July 30, 2014 10:05pm 1.0 % N 0-9.0 Monocytes (%) (Auto) July 23, 2014 12:13pm 4.0 % N 0-9.0 Neutrophils # (Auto) July 23, 2014 12:13pm 6.2 T/MM3 N 1.8-7.7 Neutrophils # (Manual) July 30, 2014 10:05pm 13.8 T/MM3 H 1.8-7.7 Neutrophils % (Manual) July 30, 2014 10:05pm 79.0 % H 33-66 Neutrophils (%) (Auto) July 23, 2014 12:13pm 61.0 % N 33-66 Oxygen Delivery Method (LAB) May 13, 2008 4:15pm Room air - Is the patient on room air? YWhat is the Source? (Liters or Percent) ROOM AIR Platelet Count July 30, 2014 10:05pm 366 T/MM3 N 130-400 Potassium Level July 30, 2014 10:05pm 4.1 MEQ/L N 3.6-5 RDW Standard Deviation July 30, 2014 10:05pm 40.1 FL N 36.9-50.2 Red Blood Count July 30, 2014 10:05pm 4.30 M/MM3 N 4.00-5.20 Sodium Level July 30, 2014 10:05pm 143 MEQ/L N 134-144 Thyroid Stimulating Hormone (TSH) July 30, 2014 10:05pm 6.06 MIU/L DH 0.47-4.68 Total Bilirubin July 30, 2014 10:05pm 0.40 MG/DL N 0.20-1.30 Total Protein July 30, 2014 10:05pm 7.5 G/DL N 6.3-8.2 Troponin I July 30, 2014 10:05pm < 0.012 ng/ml 0-0.12 Turbidity July 30, 2014 10:05pm < 20 0-20 Urinalysis Comment July 31, 2014 12:01am Microscopic not ind. - Has specimen been collected/obtained? Y Urine Amorphous Urates March 10, 2014 7:28pm Moderate - Has specimen been collected/obtained? Y Urine Bacteria March 10, 2014 7:28pm Trace H - Has specimen been collected/obtained? Y Urine Bilirubin July 31, 2014 12:01am Negative - Has specimen been collected/obtained? Y Urine Blood July 31, 2014 12:01am Negative - Has specimen been collected/obtained? Y Urine Collection Type July 31, 2014 12:01am Cleancatch-midstream - Has specimen been collected/obtained? Y Urine Color July 31, 2014 12:01am Yellow - Has specimen been collected/obtained? Y Urine Culture Indicated April 26, 2010 9:25am Cult not set up - Has specimen been collected/obtained? Y Urine Glucose (UA) July 31, 2014 12:01am Negative - Has specimen been collected/obtained? Y Urine Ketones July 31, 2014 12:01am Negative - Has specimen been collected/obtained? Y Urine Leukocyte Esterase July 31, 2014 12:01am Negative - Has specimen been collected/obtained? Y Urine Mucus March 10, 2014 7:28pm Present - Has specimen been collected/obtained? Y Urine Nitrite July 31, 2014 12:01am Negative - Has specimen been collected/obtained? Y Urine Protein July 31, 2014 12:01am Negative - Has specimen been collected/obtained? Y Urine RBC March 10, 2014 7:28pm 0-1 /HPF - Has specimen been collected/obtained? Y Urine Specific [place] July 31, 2014 12:01am >=1.030 H - Has specimen been collected/obtained? Y Urine Squamous Epithelial Cells March 10, 2014 7:28pm 0-5 - Has specimen been collected/obtained? Y Urine Transitional Epithelial Cells April 26, 2010 9:25am 1-3 /HPF - Has specimen been collected/obtained? Y Urine Turbidity July 31, 2014 12:01am Clear - Has specimen been collected/obtained? Y Urine Urobilinogen July 31, 2014 12:01am 0.2 EU/DL - Has specimen been collected/obtained? Y Urine WBC March 10, 2014 7:28pm 1-3 /HPF - Has specimen been collected/obtained? Y Urine pH July 31, 2014 12:01am 5.5 - Has specimen been collected/ obtained? Y White Blood Count July 30, 2014 10:05pm 17.5 T/MM3 H 4.5-11.0 Wet Prep Cervix October 31, 2008 11:38am Gram Stain Hip, Non-Surgical Site-Right April 28, 2014 3:40pm Name: TROY AVILES Unit #: [id number] : [id number] Sex: F Loc / Svc: ED DOS: 07/23/14 Signed Report #: [id number] DIAGNOSTIC IMAGING REPORT TYPE OF EXAM: US [...] sonogram. . Procedures Procedure Status Date Provider(s) THER/PROPH/DIAG INJ SC/IM completed 05/17/14 THER/PROPH/DIAG INJ SC/IM completed 05/17/14 HYDRATE IV INFUSION ADD-ON completed 06/15/14 HYDRATE IV INFUSION ADD-ON completed 06/15/14 THER/PROPH/DIAG INJ IV PUSH completed 06/15/14 TX/PRO/DX INJ NEW DRUG ADDON completed 06/15/14 TX/PRO/DX INJ SAME DRUG SUSTAINABILITY ANALYST completed 06/15/14 HYDRATE IV INFUSION ADD-ON completed 07/23/14 THER/PROPH/DIAG INJ IV PUSH completed 07/23/14 TX/PRO/DX INJ NEW DRUG ADDON completed 07/23/14 TX/PRO/DX INJ NEW DRUG ADDON completed 07/23/14 TX/PRO/DX INJ NEW DRUG ADDON completed 07/23/14 TX/PRO/DX INJ NEW DRUG ADDON completed 07/23/14 TX/PRO/DX INJ NEW DRUG ADDON completed 07/23/14 Encounters Encounter Location Date/Time Registered Emergency Room [facility] 07/30/14 9:52pm Departed Emergency Room [facility] 07/23/14 11:53am Departed Emergency Room [facility] 07/15/14 3:56pm Departed Emergency Room [facility] 06/15/14 4:17pm Departed Emergency Room [facility] 06/08/14 5:33pm Departed Emergency Room [facility] 05/17/14 11:22pm Recent Diagnosis
--- OUTSIDE RECORDS SUMMARY | 2016-10-09 11:19 | XMS REPORT | Referral Summary ---
Author Author [facility] Organization [facility] Address Unknown Phone Unavailable Care Team Providers Care Assistant Store Manager Operations Name Role Phone No PCP, Pt States Primary Care Physician [phone] Encounter VC Date(s): 04/04/16 - 04/04/[address] [facility] [address] [place], [place] [address] Discharge Diagnosis: Diarrhea Discharge Diagnosis: Vomiting Discharge Diagnosis: Left against medical advice Discharge Disposition: Left Against Medical Advice Vital Signs Most recent to 1 oldest [Reference Range]: Temperature Oral 36.6 degC [35.8-37.3 degC] (04/04/16 4:35 PM) Peripheral Pulse 116 bpm Rate [60-100 bpm] *HI* (04/04/16 4:35 PM) Respiratory Rate 20 br/min [14-20 br/min] (04/04/16 4:35 PM) Blood Pressure 119/91 mmHg [90-140/60-90 mmHg] (04/04/16 4:35 PM) SpO2 99 % (04/04/16 4:35 PM) Problem List Condition Effective Dates Status [...] 07/13/15 Status: Ordered Communication Patient transferred from [facility]. Refer to [facility] for last doses., 0 Refill(s) Start Date: [...] Refill(s) Start Date: 03/24/15 Status: Ordered Results Hematology Most recent to 1 oldest [Reference Range]: WBC [4.8-10.8 11.8 10*3/uL 10*3/uL] *HI* (04/04/16 5:53 PM) RBC [4.00-5.20] 4.77 (04/04/16 5:53 PM) Hgb [12.0-16.0 13.2 gm/dL gm/dL] (04/04/16 5:53 PM) Hct [37.0-47.0 %] 39.5 % (04/04/16 5:53 PM) MCV [82.0-99.0 fL] 82.8 fL (04/04/16 5:53 PM) MCH [27.0-32.0 pg] 27.7 pg (04/04/16 5:53 PM) MCHC [32.0-36.0 33.4 gm/dL gm/dL] (04/04/16 5:53 PM) RDW [11.5-14.5 %] 14.5 % (04/04/16 5:53 PM) Platelet [150-400 339 10*3/uL 10*3/uL] (04/04/16 5:53 PM) MPV [9.4-12.4 fL] 9.6 fL (04/04/16 5:53 PM) Immature 0.2 % Granulocytes (04/04/16 5:53 PM) [0.0-1.0 %] Neutrophils [51-75 78 % %] *HI* (04/04/16 5:53 PM) Lymphocytes [20-46 16 % %] *LOW* (04/04/16 5:53 PM) Monocytes [4-11 %] 5 % (04/04/16 5:53 PM) Eosinophils [0-4 %] 1 % (04/04/16 5:53 PM) Basophils [0-2 %] 0 % (04/04/16 5:53 PM) Neutro Absolute 9.24 10*3 [1.90-7.00 10*3] *HI* (04/04/16 5:53 PM) Lymph Absolute 1.89 10*3 [0.80-3.30 10*3] (04/04/16 5:53 PM) Barnes Absolute 0.57 10*3 [0.30-1.00 10*3] (04/04/16 5:53 PM) Eos Absolute 0.06 10*3 [0.00-0.50 10*3] (04/04/16 5:53 PM) Baso Absolute 0.03 10*3 [0.00-0.20 10*3] (04/04/16 5:53 PM) Chemistry Most recent to 1 oldest [Reference Range]: Sodium Lvl [136-144 137 mEq/L mEq/L] (04/04/16 5:53 PM) Potassium Lvl 4.1 mEq/L [3.6-5.1 mEq/L] (04/04/16 5:53 PM) Chloride [99-109 107 mEq/L mEq/L] (04/04/16 5:53 PM) CO2 [22-32 mEq/L] 20 mEq/L *LOW* (04/04/16 5:53 PM) AGAP [3-20] 10 (04/04/16 5:53 PM) BUN [4-20 mg/dL] 11 mg/dL (04/04/16 5:53 PM) Glucose Lvl [70-100 91 mg/dL mg/dL] (04/04/16 5:53 PM) Creatinine Lvl 0.77 mg/dL [0.44-1.03 mg/dL] (04/04/16 5:53 PM) eGFR [>60] >60 1 (04/04/16 5:53 PM) Calcium Lvl 9.7 mg/dL [8.6-10.0 mg/dL] (04/04/16 5:53 PM) Albumin Lvl [3.5-4.8 4.4 gm/dL gm/dL] (04/04/16 5:53 PM) Total Protein 7.3 gm/dL [6.1-7.9 gm/dL] (04/04/16 5:53 PM) Globulin [1.9-4.3 2.9 gm/dL gm/dL] (04/04/16 5:53 PM) ALT [14-54 U/L] 16 U/L (04/04/16 5:53 PM) AST [15-41 U/L] 19 U/L (04/04/16 5:53 PM) Alk Phos [26-104 67 U/L U/L] (04/04/16 5:53 PM) Bili Total [0.2-1.2 0.5 mg/dL 2 mg/dL] (04/04/16 5:53 PM) Lipase Lvl [8-48 25 U/L U/L] (04/04/16 5:53 PM) Screen, Negative Urine NPT (04/04/16 4:54 PM) 1Result Comment: Multiply eGFR results by 1.21 for race. 2Result Comment: Naproxen, specifically the metabolite O-desmethylnaproxen, may cause spurious elevation in Total Bilirubin levels. Urinalysis Most recent to 1 oldest [Reference Range]: UA Color Yellow (04/04/16 4:48 PM) UA Appear Cloudy *ABN* (04/04/16 4:48 PM) UA pH [5.0-8.0] 7.0 (04/04/16 4:48 PM) UA Leuk Est Negative [Negative] (04/04/16 4:48 PM) UA Nitrite Negative [Negative] (04/04/16 4:48 PM) UA Protein Negative [Negative] (04/04/16 4:48 PM) UA Glucose Negative [Negative] (04/04/16 4:48 PM) UA Ketones Negative [Negative] (04/04/16 4:48 PM) UA Urobilinogen Negative [<1.0] (04/04/16 4:48 PM) UA Bili [Negative] Negative (04/04/16 4:48 PM) UA Blood [Negative] Pos 3+ *ABN* (04/04/16 4:48 PM) UA Spec Grav 1.020 [1.003-1.030] (04/04/16 4:48 PM) Type Clean Catch (04/04/16 4:48 PM) UA WBC [0-4] 0-2 (04/04/16 4:48 PM) UA RBC [0-2 /HPF] >50 /HPF *ABN* (04/04/16 4:48 PM) Epithelial Cells 2-5 (04/04/16 4:48 PM) UA Bacteria Rare (04/04/16 4:48 PM) Immunizations Vaccine Date Refusal Reason tetanus-diphth [...]
--- OUTSIDE RECORDS SUMMARY | 2016-10-09 11:20 | XMS REPORT ---
Author Author [place] - Organization Unknown Address Unknown Phone [...] the responsibility of the patient or patient sales representative publications to confirm the list of medications with [...] Clean Catch Received : 02/03/13 21:31 Order#: [id number] Urine Culture FINAL 02/05/13 09:14 Mixed frank indicative of vaginal and/or skin contamination MARIA FOR RESULTS: * - NEW RESULT - RESULT WAS MODIFIED AFTER FINAL STATUS SET LAB--MICROBIOLOGY from 02/04/2013 1:50 PMOva And Parasite Exam Source: Stool Collected: 02/04/13 13:50 Site: Received : 02/04/13 14:00 Order#: [id number] Ova and Parasite Exam FINAL 02/05/13 11:34 S White blood cells present No ova or parasites observed . Specimen examined by formalin concentration procedure and trichrome-stained smear. S: Performed at:[place], [place] CLIA#[id number] MARIA FOR RESULTS: * - NEW RESULT - RESULT WAS MODIFIED AFTER FINAL STATUS SET C. difficile Toxin B Source: Stool Collected: 11/12 13:50 Site: Received : 02/04/13 14:01 Order#: [id number] C. difficile toxin B by PCR FINAL 02/04/13 21:08 Negative - C. difficile toxin B not detected by PCR MARIA FOR RESULTS: * - NEW RESULT - RESULT WAS MODIFIED AFTER FINAL STATUS SET Fecal Leucocyte Stain (Stool WBC) A Source: Stool Collected: 02/04/13 13:50 Site: Received : 02/04/13 14:01 Order#: [id number] Fecal Leucocyte Stain FINAL 02/04/13 14:12 Many white blood cells present MARIA FOR RESULTS: * - NEW RESULT - RESULT WAS MODIFIED AFTER FINAL STATUS SET LAB--MICROBIOLOGY from 02/04/2013 8:45 PMStool Culture and Shiga Toxin Test Source: Stool Collected: 02/04/13 20:45 Site: Received : 02/04/13 20:54 Order#: [id number] Shiga toxin test FINAL 02/06/13 08:11 Unable [...] Protein Pos 1+ A (Negative ) Specific [place] 1.015 (1.003-1.030 ) Collection Type: Clean Catch Urobilinogen Negative mg/dL (-<1.0 mg/dL) Bacteria Occasional A Epithelial Cells 5-10 /HPF Mucus Present RBC >50 /HPF A (0-2 /HPF) WBC 0-2 /HPF (0-4 /HPF)
--- OUTSIDE RECORDS SUMMARY | 2016-10-09 11:20 | XMS REPORT ---
Author Author [place], [facility] - Organization Unknown Address Unknown [...] (5.0-8.0 ) Protein Negative (Negative ) Specific [place] 1.015 (1.003-1.030 ) Collection Type: Clean Catch Urobilinogen Negative mg/dL (-<1.0 mg/dL) Bacteria Rare Epithelial Cells 5-10 /HPF Mucus Present RBC 0-2 /HPF (0-2 /HPF) WBC 2-5 /HPF (0-4 /HPF)
--- OUTSIDE RECORDS SUMMARY | 2016-10-09 11:20 | XMS REPORT | Continuity of Care Document ---
Author Author [facility] Organization [facility] Address Unknown Phone Unavailable Support Name Relationship Address Phone BEULAH LOUIS MD Caregiver [facility] [address] [place] [address] Unavailable DAXA FLOWERS II, MD Caregiver [address] [place] [address] [phone] IRENE TURCIOS Caregiver [facility] [address] [facility] [address] [place] [address] YESIKA AVILES Next Of Kin [address] [id number] Insurance Providers Payer Name Policy Number Subscriber Name Relationship Self Pay Troy Aviles 16 Self Problems Medical Problems Problem Onset Date Status Ulcerative colitis Unknown Active Ulcerative colitis Unknown Active Medications Medication Dose Route Sig Days/Qty Instructions Order Date Discontinued Date Status [None] 05/13/08 11/09/09 Discontinued Albuterol Sulfate 8.5 Gm IH NEEDED 04/26/10 11/06/10 Discontinued Prednisone NEEDED 04/26/10 11/06/10 Discontinued Prochlorperazine Maleate 10 Mg PO FOUR TIMES DAILY For NAUSEA/CRAMPS 45 Qty 01/05/14 Active Sulfasalazine 500 Mg PO FOUR TIMES DAILY 120 Qty 01/05/14 Active Social History Social History Problem Response Recorded Date/Time Smoking Status Current every day smoker 01/05/2014 9:04pm Hospital Discharge Instructions No hospital discharge instructions. Plan of Care No plan of care. Functional Status Query Response Date Recorded Physical Hygiene Self January 05, 2014 9:04pm Dressing Self January 05, 2014 9:04pm Ambulation Self January 05, 2014 9:04pm Diet Self January 05, 2014 9:04pm Mental Status Alert Oriented January 05, 2014 9:04pm Physical Hygiene Self January 05, 2014 9:04pm Dressing Self January 05, 2014 9:04pm Ambulation Self January 05, 2014 9:04pm Diet Self January 05, 2014 9:04pm Allergies, Adverse [...] Vital Signs Vital Response Date/Time Temperature (Fahrenheit) 97.1 deg F (96.8 - 99.1) Temperature (Calculated Celsius) 36.73162 degrees C (36.0 - 37.3) Pulse Rate (adult) 63 bpm (60 - 100) Respiratory Rate 20 breaths/min (10 - 20) O2 Sat by Pulse Oximetry 98 % (90 - 100) Blood Pressure 120/70 mm Hg Results Test Source Date Result Interp. Ref. Range Comments Alanine Aminotransferase (ALT/SGPT) January 05, 2014 9:43pm 19 U/L N 9-52 Albumin January 05, 2014 9:43pm 4.2 G/DL N 3.5-5.0 Albumin/Globulin Ratio January 05, 2014 9:43pm 1.5 RATIO N 1.1-2.2 Alkaline Phosphatase January 05, 2014 9:43pm 74 U/L N 38-126 Anion Gap January 05, 2014 9:43pm 11 MEQ/L N 5-15 Arterial Blood Base Excess [...] Percent) ROOM AIR Aspartate Amino Transf (AST/SGOT) January 05, 2014 9:43pm 13 U/L L 14-36 BUN/Creatinine Ratio January 05, 2014 9:43pm 12 RATIO N 6-26 Basophils # (Auto) January 05, 2014 9:43pm 0.0 T/MM3 N 0-0.2 Basophils (%) (Auto) January 05, 2014 9:43pm 0.2 % N 0-2 Blood Gas Oxygen Saturation May 13, 2008 4:15pm 97.0 % N 95.0-98.0 Is the patient on room air? YWhat is the Source? (Liters or Percent) ROOM AIR Blood Gas Tidal Volume May 13, 2008 4:15pm Not Performed 0-1200 Blood Gas Vent Rate May 13, 2008 4:15pm Not Performed 0-30 Blood Urea Nitrogen January 05, 2014 9:43pm 7.0 MG/DL N 7-17 Calcium Level January 05, 2014 9:43pm 9.4 MG/DL N 8.4-10.2 Calculated Osmolality January 05, 2014 9:43pm 272 MOSM/KG N 261-280 Carbon Dioxide Level January 05, 2014 9:43pm 22 MEQ/L N 22-30 Chlamydia Direct Antigen Assay October 31, 2008 11:38am Negative - Chloride Level January 05, 2014 9:43pm 110 MEQ/L H 98-107 Creatinine January 05, 2014 9:43pm 0.6 MG/DL L 0.7-1.2 Eosinophils # (Auto) January 05, 2014 9:43pm 0.1 T/MM3 N 0-0.5 Eosinophils (%) (Auto) January 05, 2014 9:43pm 1.2 % N 0-4 Erythrocyte Sedimentation Rate December 19, 2008 9:17pm 8 MM/HR - Globulin January 05, 2014 9:43pm 2.8 G/DL N 2.4-3.6 Glucose Level January 05, 2014 9:43pm 85 MG/DL N 65-110 Hematocrit January 05, 2014 9:43pm 37.2 % N 36-46 Hemoglobin January 05, 2014 9:43pm 12.2 GM/DL N 12-16 Lipase January 05, 2014 9:43pm 101 U/L N 23-300 Lymphocytes # (Auto) January 05, 2014 9:43pm 3.0 T/MM3 N 1-4.8 Lymphocytes (%) (Auto) January 05, 2014 9:43pm 25.2 % N 23-45 Magnesium Level December 19, 2008 9:17pm 2.0 MG/DL N 1.6-2.3 Mean Corpuscular Hemoglobin January 05, 2014 9:43pm 27.9 UUG N 26-34 Mean Corpuscular Hemoglobin Concent January 05, 2014 9:43pm 32.8 GM/DL N 31 -37 Mean Corpuscular Volume January 05, 2014 9:43pm 85.1 UM3 N 80-100 Mean Platelet Volume January 05, 2014 9:43pm 9.5 UM3 N 9.4-12.4 Monocytes # (Auto) January 05, 2014 9:43pm 0.4 T/MM3 N 0-0.8 Monocytes (%) (Auto) January 05, 2014 9:43pm 3.3 % N 0-9.0 Neutrophils # (Auto) January 05, 2014 9:43pm 8.3 T/MM3 H 1.8-7.7 Neutrophils (%) (Auto) January 05, 2014 9:43pm 69.8 % H 33-66 Platelet Count January 05, 2014 9:43pm 315 T/MM3 N 130-400 Potassium Level January 05, 2014 9:43pm 3.8 MEQ/L N 3.6-5 RDW Standard Deviation January 05, 2014 9:43pm 43.7 FL N 36.9-50.2 Red Blood Count January 05, 2014 9:43pm 4.37 M/MM3 N 4.00-5.20 Sodium Level January 05, 2014 9:43pm 143 MEQ/L N 134-144 Thyroid Stimulating Hormone (TSH) April 26, 2010 10:00am 1.87 MIU/ML N 0.47-4.68 Total Bilirubin January 05, 2014 9:43pm 0.20 MG/DL N 0.20-1.30 Total Protein January 05, 2014 9:43pm 7.0 G/DL N 6.3-8.2 Urine Bacteria April 26, 2010 9:25am 2+ H - Has specimen been collected/obtained? Y Urine Bilirubin January 05, 2014 9:50pm Negative - Has specimen been collected/obtained? Y Urine Blood January 05, 2014 9:50pm Negative - Has specimen been collected/obtained? Y Urine Collection Type January 05, 2014 9:50pm Cleancatch-midstream - Has specimen been collected/obtained? Y Urine Color January 05, 2014 9:50pm Yellow - Has specimen been collected /obtained? Y Urine Culture Indicated April 26, 2010 9:25am Cult not set up - Has specimen been collected/obtained? Y Urine Glucose (UA) January 05, 2014 9:50pm Negative - Has specimen been collected/obtained? Y Urine Ketones January 05, 2014 9:50pm Negative - Has specimen been collected/obtained? Y Urine Leukocyte Esterase January 05, 2014 9:50pm Trace H - Has specimen been collected/obtained? Y Urine Mucus December 19, 2008 10:23pm Present - Has specimen been collected/obtained? Y Urine Nitrite January 05, 2014 9:50pm Negative - Has specimen been collected/obtained? Y Urine Test October 31, 2008 11:45am Negative - Has specimen been collected/obtained? YWhat is the Source? VOIDED Urine Protein January 05, 2014 9:50pm Negative - Has specimen been collected/obtained? Y Urine RBC April 26, 2010 9:25am None seen /HPF - Has specimen been collected/obtained? Y Urine Specific [place] January 05, 2014 9:50pm 1.015 - Has specimen been collected/obtained? Y Urine Squamous Epithelial Cells April 26, 2010 9:25am Many - Has specimen been collected/obtained? Y Urine Transitional Epithelial Cells April 26, 2010 9:25am 1-3 /HPF - Has specimen been collected/obtained? Y Urine Turbidity January 05, 2014 9:50pm Clear - Has specimen been collected/obtained? Y Urine Urobilinogen January 05, 2014 9:50pm 0.2 EU/DL - Has specimen been collected/obtained? Y Urine WBC April 26, 2010 9:25am 1-3 /HPF - Has specimen been collected/obtained? Y Urine pH January 05, 2014 9:50pm 5.5 - Has specimen been collected/ obtained? Y White Blood Count January 05, 2014 9:43pm 11.8 T/MM3 H 4.5-11.0 Chemistry Specimen Hemolysis January 05, 2014 9:43pm 20 N 0-25 0-25: No Hemolysis.26-70: Slight Hemolysis [...] ind. - Has specimen been collected/obtained? Y Anti-Nuclear Antibody (LAB) March 01, 2008 12:35am Sent out - Turbidity January 05, 2014 9:43pm < 20 0-20 Glomerular Filtration Rate Calc January 05, 2014 9:43pm 117 - Immature Granulocyte # (Auto) January 05, 2014 9:43pm 0.03 T/MM3 N 0.00- 0.03 Immature Granulocyte % (Auto) January 05, 2014 9:43pm 0.3 % N 0.0-0.5 Arterial Blood pO2 at Patient Temp May 13, 2008 4:15pm 84 MMHG N 80 -100 Is the patient on room air? YWhat is the Source? (Liters or Percent) ROOM AIR Icterus Index January 05, 2014 9:43pm < 2 0-7 Wet Prep Cervix October 31, 2008 11:38am Procedures No known history of procedures. Encounters Encounter Location Date/Time Departed Emergency Room [facility] 01/05/14 7:51pm Recent Diagnosis
--- OUTSIDE RECORDS SUMMARY | 2016-10-09 11:20 | XMS REPORT | Continuity of Care Document ---
Author Author [facility] Organization [facility] Address Unknown Phone Unavailable Support Name Relationship Address Phone BEULAH LOUIS MD Caregiver [address] [place] [address] Unavailable FADY AGUIAR Next Of Kin [address] [place] [address] Insurance Providers Payer Name Policy Number Subscriber Name Relationship Self Pay Troy Aviles 16 Self Problems Medical Problems Problem Onset Date Status Ulcerative colitis Unknown Active Ulcerative colitis Unknown Active Ulcerative colitis Unknown Active Atrial fibrillation Unknown Active Chronic abdominal pain Unknown Active Methamphetamine use Unknown Active Medications Medication Dose Route Sig Days/Qty Instructions Order Date Discontinued Date Status [None] 05/13/08 11/09/09 Discontinued Albuterol Sulfate 8.5 Gm IH NEEDED 04/26/10 11/06/10 Discontinued Prednisone NEEDED 04/26/10 11/06/10 Discontinued [No Routine Meds] 02/27/14 Active Prochlorperazine Maleate 10 Mg PO FOUR TIMES DAILY 30 Qty 02/27/14 Active Social History Social History Problem Response Recorded Date/Time Smoking Status Current every day smoker 01/05/2014 9:04pm Hx Substance Use Y 02/26/14 02/27/2014 12:45am Hospital Discharge Instructions No hospital discharge instructions. Plan of Care No plan of care. Functional Status Query Response Date Recorded Physical Hygiene Self February 27, 2014 12:45am Disabilities None February 27, 2014 12:45am Devices Used Glasses February 27, 2014 12:45am Dressing Self February 27, 2014 12:45am Ambulation Self January 05, 2014 9:04pm Diet Self February 27, 2014 12:45am Mental Status Alert Oriented January 05, 2014 9:04pm Disabilities None February 27, 2014 12:45am Devices Used Glasses February 27, 2014 12:45am Physical Hygiene Self February 27, 2014 12:45am Dressing Self February 27, 2014 12:45am Ambulation Self January 05, 2014 9:04pm Diet Self February 27, 2014 12:45am Allergies, Adverse Reactions, Alerts Allergen Type Severity Reaction Status Last Updated Ibuprofen Adverse Reaction Mild BLEEDING Active 02/27/14 Peanut Oil Allergy Severe ANAPHYLACTIC REACTION Active 02/27/14 Hydromorphone Allergy Unknown AGITATION Active 02/27/14 Ketorolac Allergy Unknown ULCERS Active 02/27/14 Tomato Allergy Unknown Active 02/27/14 Immunizations Name Given Type Hx Tetanus, Diptheria, Pertussis Y PT STATES "WITHIN THE LAST 5 YEARS" Historical Hx Tetanus, Diptheria, Pertussis Y PT STATES "WITHIN THE LAST 5 YEARS" Historical Vital Signs Acute Vital Signs Vital Response Date/Time Temperature (Fahrenheit) 97.0 deg F (96.8 - 99.1) Temperature (Calculated Celsius) 36.83744 degrees C (36.0 - 37.3) Pulse Rate (adult) 86 bpm (60 - 100) Respiratory Rate 15 breaths/min (10 - 20) O2 Sat by Pulse Oximetry 99 % (90 - 100) Blood Pressure 104/61 mm Hg Height 5 ft 7 in Weight 201 lb Body Mass Index 31.0 kg/m^2 Results Test Source Date Result Interp. Ref. Range Comments Lab Scanned Report February 27, 2014 4:08am REFERENCE LAB - Troponin I February 27, 2014 12:45am < 0.012 ng/ml 0-0.12 Alanine Aminotransferase (ALT/SGPT) February 27, 2014 12:45am 21 U/L N 9- 52 Albumin February 27, 2014 12:45am 4.0 G/DL N 3.5-5.0 Albumin/Globulin Ratio February 27, 2014 12:45am 1.6 RATIO N 1.1-2.2 Alkaline Phosphatase February 27, 2014 12:45am 79 U/L N 38-126 Anion Gap February 27, 2014 12:45am 14 MEQ/L N 5-15 Anti-Nuclear Antibody (LAB) March [...] ROOM AIR Aspartate Amino Transf (AST/SGOT) February 27, 2014 12:45am 11 U/L L 14- 36 BUN/Creatinine Ratio February 27, 2014 12:45am 14 RATIO N 6-26 Basophils # (Auto) February 27, 2014 12:45am 0.1 T/MM3 N 0-0.2 Basophils (%) (Auto) February 27, 2014 12:45am 0.4 % N 0-2 Blood Gas Oxygen Saturation May 13, 2008 4:15pm 97.0 % N 95.0-98.0 Is the patient on room air? YWhat is the Source? (Liters or Percent) ROOM AIR Blood Gas Tidal Volume May 13, 2008 4:15pm Not Performed 0-1200 Blood Gas Vent Rate May 13, 2008 4:15pm Not Performed 0-30 Blood Urea Nitrogen February 27, 2014 12:45am 13.0 MG/DL N 7-17 Calcium Level February 27, 2014 12:45am 9.1 MG/DL N 8.4-10.2 Calculated Osmolality February 27, 2014 12:45am 281 MOSM/KG H 261-280 Carbon Dioxide Level February 27, 2014 12:45am 24 MEQ/L N 22-30 Chemistry Specimen Hemolysis February 27, 2014 12:45am < 15 0-25 0-25: No Hemolysis.26-70: Slight [...] 2008 11:38am Negative - Chloride Level February 27, 2014 12:45am 108 MEQ/L H 98-107 Creatinine February 27, 2014 12:45am 0.9 MG/DL N 0.7-1.2 Eosinophils # (Auto) February 27, 2014 12:45am 0.1 T/MM3 N 0-0.5 Eosinophils (%) (Auto) February 27, 2014 12:45am 0.4 % N 0-4 Erythrocyte Sedimentation Rate December 19, 2008 9:17pm 8 MM/HR - Globulin February 27, 2014 12:45am 2.5 G/DL N 2.4-3.6 Glomerular Filtration Rate Calc February 27, 2014 12:45am 74 - Glucose Level February 27, 2014 12:45am 104 MG/DL N 65-110 Hematocrit February 27, 2014 12:45am 39.1 % N 36-46 Hemoglobin February 27, 2014 12:45am 12.7 GM/DL N 12-16 Icterus Index February 27, 2014 12:45am < 2 0-7 Immature Granulocyte # (Auto) February 27, 2014 12:45am 0.04 T/MM3 H 0.00- 0.03 Immature Granulocyte % (Auto) February 27, 2014 12:45am 0.3 % N 0.0-0.5 Lipase February 07, 2014 11:16am 125 U/L N 23-300 Lymphocytes # (Auto) February 27, 2014 12:45am 5.5 T/MM3 H 1-4.8 Lymphocytes (%) (Auto) February 27, 2014 12:45am 41.0 % N 23-45 Magnesium Level December 19, 2008 9:17pm 2.0 MG/DL N 1.6-2.3 Mean Corpuscular Hemoglobin February 27, 2014 12:45am 27.8 UUG N 26-34 Mean Corpuscular Hemoglobin Concent February 27, 2014 12:45am 32.5 GM/DL N 31-37 Mean Corpuscular Volume February 27, 2014 12:45am 85.6 UM3 N 80-100 Mean Platelet Volume February 27, 2014 12:45am 10.1 UM3 N 9.4-12.4 Monocytes # (Auto) February 27, 2014 12:45am 0.7 T/MM3 N 0-0.8 Monocytes (%) (Auto) February 27, 2014 12:45am 4.9 % N 0-9.0 Neutrophils # (Auto) February 27, 2014 12:45am 7.1 T/MM3 N 1.8-7.7 Neutrophils (%) (Auto) February 27, 2014 12:45am 53.0 % N 33-66 Oxygen Delivery Method (LAB) May 13, 2008 4:15pm Room air - Is the patient on room air? YWhat is the Source? (Liters or Percent) ROOM AIR Platelet Count February 27, 2014 12:45am 334 T/MM3 N 130-400 Potassium Level February 27, 2014 12:45am 3.3 MEQ/L L 3.6-5 RDW Standard Deviation February 27, 2014 12:45am 41.8 FL N 36.9-50.2 Red Blood Count February 27, 2014 12:45am 4.57 M/MM3 N 4.00-5.20 Sodium Level February 27, 2014 12:45am 146 MEQ/L H 134-144 Thyroid Stimulating Hormone (TSH) April 26, 2010 10:00am 1.87 MIU/ML N 0.47-4.68 Total Bilirubin February 27, 2014 12:45am 0.20 MG/DL N 0.20-1.30 Total Protein February 27, 2014 12:45am 6.5 G/DL N 6.3-8.2 Turbidity February 27, 2014 12:45am < 20 0-20 Urinalysis Comment January 05, [...] Has specimen been collected/obtained? Y Urine Specific [place] February 07, 2014 11:10am 1.020 - Has [...] collected/ obtained? Y White Blood Count February 27, 2014 12:45am 13.4 T/MM3 H 4.5-11.0 Wet Prep Cervix October 31, 2008 11:38am Name: TROY AVILES Unit #: [id number] : 1985 Sex: F Loc / Svc: ED DOS: Signed Report #: [id number] DIAGNOSTIC IMAGING REPORT TYPE OF EXAM: KUB [...] 02/07/14 HYDRATE IV INFUSION ADD-ON completed 02/07/14 Encounters Encounter Location Date/Time Registered Emergency Room [facility] 02/27/14 12:25am Departed Emergency Room [facility] 02/07/14 10:36am Departed Emergency Room [facility] 01/05/14 7:51pm Recent Diagnosis
--- OUTSIDE RECORDS SUMMARY | 2016-10-09 11:20 | XMS REPORT | Continuity of Care Document ---
Author Author [facility] Organization [facility] Address Unknown Phone Unavailable Support Name Relationship Address Phone LEVAR SEO MD Caregiver [address] [place] [address] SARBJIT MONTE MD Caregiver [address] [place] [phone] TORO SIMMONS Next Of Kin [address] [facility] [facility] [address] [facility] [place], [place] [id number] Insurance Providers Payer Name Policy Number Subscriber [...] cyst Unknown Active Abdominal pain Unknown Active Atypical chest pain Unknown Active Atypical chest pain Unknown Active Medications Medication Dose Route [...] 0100/0900/1700 PRN VOMITING 10 Qty 08/19/14 Active Hydrocodone/Acetaminophen 1-2 Tab PO Every 6 Hours PRN PAIN 20 Qty Active Social History Social History Problem Response Recorded Date/Time Hx Substance Use Y PAST PT REPORTS 09/24/2014 8:31pm Hx Alcohol Use No 09/24/2014 8:31pm Tobacco Usage smoke 07/23/2014 12:31pm Query Response Start Date Stop Date Smoking Status Current every day smoker Hospital Discharge Instructions No hospital discharge instructions. Plan of Care No plan of care. Functional Status Query Response Date Recorded Physical Hygiene Self September 24, 2014 8:31pm Disabilities None September 24, 2014 8:31pm Devices Used None September 24, 2014 8:31pm Dressing Self September 24, 2014 8:31pm Ambulation Self January 05, 2014 9:04pm Diet Self September 24, 2014 8:31pm Mental Status Alert Oriented January 05, 2014 9:04pm Disabilities None September 24, 2014 8:31pm Devices Used None September 24, 2014 8:31pm Physical Hygiene Self September 24, 2014 8:31pm Dressing Self September 24, 2014 8:31pm Ambulation Self January 05, 2014 9:04pm Diet Self September 24, 2014 8:31pm Allergies, Adverse Reactions, Alerts Allergen Type Severity Reaction Status Last Updated Ibuprofen Adverse Reaction Mild BLEEDING Active 09/24/14 Peanut Oil Allergy Severe ANAPHYLACTIC REACTION Active 09/24/14 Ketorolac Adverse Reaction Intermediate ULCERS/INCREASED BLEEDING Active 09/24/14 Tomato Allergy Unknown Active 09/24/14 Immunizations Name Given Type Hx Influenza Vaccination No Historical Hx Tetanus, Diptheria, Pertussis Y 2011 Historical Hx Influenza Vaccination No Historical Hx Tetanus, Diptheria, Pertussis Y 2011 Historical Vital Signs Acute Vital Signs Vital Response Date/Time Temperature (Fahrenheit) 97.7 deg F (96.8 - 99.1) Temperature (Calculated Celsius) 36.90243 degrees C (36.0 - 37.3) Pulse Rate (adult) 98 bpm (60 - 100) Respiratory Rate 25 breaths/min (10 - 20) O2 Sat by Pulse Oximetry 99 % (90 - 100) Blood Pressure 136/61 mm Hg Height 5 ft 6 in Weight 193 lb Body Mass Index 31.0 kg/m^2 Results Test Source Date Result Interp. Ref. Range Comments Activated Partial Thromboplast Time September 24, 2014 7:34pm 30.4 SEC N 24- 36 Ordering r/o VTE Yes Alanine Aminotransferase (ALT/SGPT) September 24, 2014 7:34pm 25 U/L N 9-52 Albumin September 24, 2014 7:34pm 4.4 G/DL N 3.5-5.0 Albumin/Globulin Ratio September 24, 2014 7:34pm 1.5 RATIO N 1.1-2.2 Alkaline Phosphatase September 24, 2014 7:34pm 84 U/L N 38-126 Amylase Level August 19, 2014 9:06pm 82 U/L N 30-110 Anion Gap September 24, 2014 7:34pm 13 MEQ/L N 5-15 Anti-Nuclear Antibody (LAB) [...] Percent) ROOM AIR Aspartate Amino Transf (AST/SGOT) September 24, 2014 7:34pm 14 U/L N 14-36 BUN/Creatinine Ratio September 24, 2014 7:34pm 15 RATIO N 6-26 Band Neutrophils # July 30, 2014 10:05pm 0.5 T/MM3 - Band Neutrophils % July 30, 2014 10:05pm 3.0 % N 0-6 Basophils # (Auto) September 24, 2014 7:34pm 0.0 T/MM3 N 0-0.2 Basophils # (Manual) July 30, 2014 10:05pm 0.2 T/MM3 N 0-0.2 Basophils % (Manual) July 30, 2014 10:05pm 1.0 % N 0-2 Basophils (%) (Auto) September 24, 2014 7:34pm 0.3 % N 0-2 Blood Gas Oxygen Saturation May 13, 2008 4:15pm 97.0 % N 95.0-98.0 Is the patient on room air? YWhat is the Source? (Liters or Percent) ROOM AIR Blood Gas Tidal Volume May 13, 2008 4:15pm Not Performed 0-1200 Blood Gas Vent Rate May 13, 2008 4:15pm Not Performed 0-30 Blood Urea Nitrogen September 24, 2014 7:34pm 12.0 MG/DL N 7-17 Calcium Level September 24, 2014 7:34pm 9.8 MG/DL N 8.4-10.2 Calculated Osmolality September 24, 2014 7:34pm 275 MOSM/KG N 261-280 Carbon Dioxide Level September 24, 2014 7:34pm 22 MEQ/L N 22-30 Chemistry Specimen Hemolysis September 24, 2014 7:34pm < 15 0-25 0-25: No Hemolysis.26-70: Slight [...] 31, 2008 11:38am Negative - Chloride Level September 24, 2014 7:34pm 108 MEQ/L H 98-107 Creatinine September 24, 2014 7:34pm 0.8 MG/DL N 0.7-1.2 D-Dimer September 24, 2014 7:34pm < 150 NG/ML 0-230 <230 NG/ML D-DU= PRESUMPTIVE NEGATIVE FOR PE OR DVT>230 NG/ML D-DU=ADDITIONAL EVAL FOR PE OR DVT RECOMMENDED Eosinophils # (Auto) September 24, 2014 7:34pm 0.1 T/MM3 N 0-0.5 Eosinophils (%) (Auto) September 24, 2014 7:34pm 0.5 % N 0-4 Erythrocyte Sedimentation Rate December 19, 2008 9:17pm 8 MM/HR - Globulin September 24, 2014 7:34pm 3.0 G/DL N 2.4-3.6 Glomerular Filtration Rate Calc September 24, 2014 7:34pm 84 - Glucose Level September 24, 2014 7:34pm 90 MG/DL N 65-110 Hematocrit September 24, 2014 7:34pm 36.9 % N 36-46 Hemoglobin September 24, 2014 7:34pm 12.3 GM/DL N 12-16 Icterus Index September 24, 2014 7:34pm < 2 0-7 Immature Granulocyte # (Auto) September 24, 2014 7:34pm 0.03 T/MM3 N 0.00- 0.03 Immature Granulocyte % (Auto) September 24, 2014 7:34pm 0.2 % N 0.0-0.5 Lab Scanned Report August 29, 2014 8:48am REFERENCE LAB - Lipase August 19, 2014 9:06pm 273 U/L N 23-300 Lymphocytes # (Auto) September 24, 2014 7:34pm 2.9 T/MM3 N 1-4.8 Lymphocytes # (Manual) July 30, 2014 10:05pm 2.8 T/MM3 N 1-4.8 Lymphocytes % (Manual) July 30, 2014 10:05pm 16.0 % L 23-45 Lymphocytes (%) (Auto) September 24, 2014 7:34pm 21.9 % L 23-45 Magnesium Level August 28, 2014 10:05am 2.0 MG/DL N 1.6-2.3 Mean Corpuscular Hemoglobin September 24, 2014 7:34pm 27.2 UUG N 26-34 Mean Corpuscular Hemoglobin Concent September 24, 2014 7:34pm 33.3 GM/DL N 31-37 Mean Corpuscular Volume September 24, 2014 7:34pm 81.5 UM3 N 80-100 Mean Platelet Volume September 24, 2014 7:34pm 9.5 UM3 N 9.4-12.4 Monocytes # (Auto) September 24, 2014 7:34pm 0.6 T/MM3 N 0-0.8 Monocytes # (Manual) July 30, 2014 10:05pm 0.2 T/MM3 N 0-0.8 Monocytes % (Manual) July 30, 2014 10:05pm 1.0 % N 0-9.0 Monocytes (%) (Auto) September 24, 2014 7:34pm 4.8 % N 0-9.0 WR-Gbt-F-Type Natriuretic Peptide September 24, 2014 7:34pm 38 PG/ML N 0- 175 Rule in cut points: <50 years old=450; 50-75 years old=900; >75 years old=1800; When utilizing ProBNP rule-in cut points, adjustment for impaired renal function is typically not required. Neutrophils # (Auto) September 24, 2014 7:34pm 9.4 T/MM3 H 1.8-7.7 Neutrophils # (Manual) July 30, 2014 10:05pm 13.8 T/MM3 H 1.8-7.7 Neutrophils % (Manual) July 30, 2014 10:05pm 79.0 % H 33-66 Neutrophils (%) (Auto) September 24, 2014 7:34pm 72.3 % H 33-66 Oxygen Delivery Method (LAB) May 13, 2008 4:15pm Room air - Is the patient on room air? YWhat is the Source? (Liters or Percent) ROOM AIR Platelet Count September 24, 2014 7:34pm 376 T/MM3 N 130-400 Potassium Level September 24, 2014 7:34pm 4.1 MEQ/L N 3.6-5 Prothromb Time International Ratio September 24, 2014 7:34pm 1.13 H 0.81- 1.09 THERAPUTIC RANGE=2.00-3.00 FOR ANTI-THROMBOSIS THERAPUTIC RANGE=2.50- 3.50 FOR IMPLANTED VALVE RDW Standard Deviation September 24, 2014 7:34pm 41.8 FL N 36.9-50.2 Red Blood Count September 24, 2014 7:34pm 4.53 M/MM3 N 4.00-5.20 Sodium Level September 24, 2014 7:34pm 143 MEQ/L N 134-144 Thyroid Stimulating Hormone (TSH) August 28, 2014 10:05am 1.54 MIU/L N 0.47-4.68 Total Bilirubin September 24, 2014 7:34pm 0.70 MG/DL N 0.20-1.30 Total Protein September 24, 2014 7:34pm 7.4 G/DL N 6.3-8.2 Troponin I September 24, 2014 7:34pm < 0.012 ng/ml 0-0.12 Turbidity September 24, 2014 7:34pm < 20 0-20 Urinalysis Comment September 19, [...] Has specimen been collected/obtained? Y Urine Specific [place] September 19, 2014 1:07am >=1.030 H - [...] been collected/ obtained? Y White Blood Count September 24, 2014 7:34pm 13.0 T/MM3 H 4.5-11.0 Wet Prep Cervix October 31, 2008 11:38am Gram Stain Hip, Non-Surgical Site-Right April 28, 2014 3:40pm Name: TROY AVILES Unit #: [id number] : 1985 Sex: F Loc / Svc: ED DOS: 08/28/14 Signed Report #: [id number] DIAGNOSTIC IMAGING REPORT TYPE OF EXAM: CHEST, [...] ADDON completed 07/30/14 TX/PRO/DX INJ SAME DRUG CHANGER FIXER completed 07/30/14 HYDRATE IV INFUSION ADD-ON completed [...] TX/PRO/DX INJ NEW DRUG ADDON completed 08/28/14 HYDRATE IV INFUSION ADD-ON completed 09/19/14 THER/PROPH/DIAG INJ IV PUSH completed 09/19/14 TX/PRO/DX INJ NEW DRUG ADDON completed 09/19/14 TX/PRO/DX INJ NEW DRUG ADDON completed 09/19/14 Encounters Encounter Location Date/Time Registered Emergency Room [facility] 09/24/14 7:07pm Departed Emergency Room [facility] 09/19/14 12:32am Departed Emergency Room [facility] 08/28/14 9:36am Departed Emergency Room [facility] 08/19/14 7:04pm Departed Emergency Room [facility] 07/30/14 9:52pm Departed Emergency Room [facility] 07/23/14 11:53am Departed Emergency Room [facility] 07/15/14 3:56pm Recent Diagnosis
--- OUTSIDE RECORDS SUMMARY | 2016-10-09 11:21 | XMS REPORT ---
Author Author [facility], [facility] - Organization Unknown Address Unknown [...] (5.0-8.0 ) Protein Negative (Negative ) Specific [place] 1.009 (1.003-1.030 ) Collection Type: Clean Catch Urobilinogen Negative mg/dL (-<1.0 mg/dL) Bacteria Occasional A Epithelial Cells 2-5 /HPF Mucus Present RBC 0-2 /HPF (0-2 /HPF) WBC 2-5 /HPF (0-4 /HPF)
--- OUTSIDE RECORDS SUMMARY | 2016-10-09 11:21 | XMS REPORT | Continuity of Care Document ---
Author Author [facility] Organization [facility] Address Unknown Phone Unavailable Support Name Relationship Address Phone IRENE TURCIOS Caregiver [facility] [address] [facility] [address] [place] [address] JULIAN LE MD Caregiver [address] [place] [address] [place] [phone] FADY AGUIAR Next Of Kin [address] [place] [address] Insurance Providers Payer Name Policy [...] F (96.8 - 99.1) Temperature (Calculated Celsius) 36.32769 degrees C (36.0 - 37.3) Pulse Rate [...] Has specimen been collected/obtained? Y Urine Specific [place] March 10, 2014 7:28pm >=1.030 H - [...] Report February 27, 2014 4:08am REFERENCE LAB [id number] - Anti-Nuclear Antibody (LAB) March 01, 2008 [...] 2008 11:38am Name: TROY AVILES Unit #: [id number] : 1985 Sex: F Loc / Svc: ED DOS: Signed Report #: [id number] DIAGNOSTIC IMAGING REPORT TYPE OF EXAM: KUB [...] ADDON completed 02/27/14 TX/PRO/DX INJ SAME DRUG SEISMIC OBSERVER completed 02/27/14 HYDRATE IV INFUSION ADD-ON completed 02/27/14 Encounters Encounter Location Date/Time Departed Emergency Room [facility] 03/10/14 5:24pm Departed Emergency Room [facility] 02/27/14 12:25am Departed Emergency Room [facility] 02/07/14 10:36am Departed Emergency Room [facility] 01/05/14 7:51pm Recent Diagnosis
--- OUTSIDE RECORDS SUMMARY | 2016-10-09 11:21 | XMS REPORT | Continuity of Care Document ---
Author Author [facility] Organization [facility] Address Unknown Phone Unavailable Support Name Relationship Address Phone BEULAH LOUIS MD Caregiver [facility] [address] [place] [address] Unavailable SARBJIT MONTE MD Caregiver [address] [place] [phone] TORO SIMMONS Next Of Kin [address] [place] [address] Insurance Providers Payer Name Policy Number Subscriber [...] F (96.8 - 99.1) Temperature (Calculated Celsius) 36.41185 degrees C (36.0 - 37.3) Pulse Rate [...] Has specimen been collected/obtained? Y Urine Specific [place] September 19, 2014 1:07am >=1.030 H - [...] 3:40pm Name: AVILESROSA ELENATROY A Unit #: [id number] : 1985 Sex: F Loc / Svc: ED DOS: 08/28/14 Signed Report #: [id number] DIAGNOSTIC IMAGING REPORT TYPE OF EXAM: CHEST, [...] ADDON completed 07/30/14 TX/PRO/DX INJ SAME DRUG WELDING MACHINE OPERATOR SUBMERGED ARC completed 07/30/14 HYDRATE IV INFUSION ADD-ON completed [...] Encounters Encounter Location Date/Time Departed Emergency Room [facility] 09/19/14 12:32am Departed Emergency Room [facility] 08/28/14 9:36am Departed Emergency Room [facility] 08/19/14 7:04pm Departed Emergency Room [facility] 07/30/14 9:52pm Departed Emergency Room [facility] 07/23/14 11:53am Departed Emergency Room [facility] 07/15/14 3:56pm Recent Diagnosis
--- OUTSIDE RECORDS SUMMARY | 2016-10-09 11:21 | XMS REPORT | Continuity of Care Document ---
Author Author [facility] Organization [facility] Address Unknown Phone Unavailable Support Name Relationship Address Phone LONNY SEO MD Caregiver [address] [place] [address] SARBJIT MONTE MD Caregiver [address] [place], [place] [phone] DEBRAFADY BAUTISTA Next Of Kin [address] [place], [place] [id number] Insurance Providers Payer Name Policy Number Subscriber [...] F (96.8 - 99.1) Temperature (Calculated Celsius) 36.16080 degrees C (36.0 - 37.3) Pulse Rate [...] Has specimen been collected/obtained? Y Urine Specific [place] March 10, 2014 7:28pm >=1.030 H - [...] Report February 27, 2014 4:08am REFERENCE LAB [id number] - Anti-Nuclear Antibody (LAB) March 01, 2008 [...] 2008 11:38am Name: TROY AVILES Unit #: [id number] : 1985 Sex: F Loc / Svc: ED DOS: Signed Report #: [id number] DIAGNOSTIC IMAGING REPORT TYPE OF EXAM: KUB [...] ADDON completed 02/27/14 TX/PRO/DX INJ SAME DRUG DISTANCE EDUCATION COORDINATOR completed 02/27/14 HYDRATE IV INFUSION ADD-ON completed 02/27/14 THER/PROPH/DIAG INJ IV PUSH completed 03/10/14 TX/PRO/DX INJ NEW DRUG ADDON completed 03/10/14 TX/PRO/DX INJ SAME DRUG DISTANCE EDUCATION COORDINATOR completed 03/10/14 HYDRATE IV INFUSION ADD-ON completed 03/10/14 Encounters Encounter Location Date/Time Departed Emergency Room [facility] 04/28/14 2:47pm Departed Emergency Room [facility] 03/10/14 5:24pm Departed Emergency Room [facility] 02/27/14 12:25am Departed Emergency Room [facility] 02/07/14 10:36am Recent Diagnosis
--- OUTSIDE RECORDS SUMMARY | 2016-10-09 11:22 | XMS REPORT | Continuity of Care Document ---
Author Author [facility] Organization [facility] Address Unknown Phone Unavailable Support Name Relationship Address Phone JULIAN LE MD [address] [phone] YESIKA AVILES Next Of Kin [address] [place] [address] Insurance Providers Payer Name Policy Number Subscriber [...] F (96.8 - 99.1) Temperature (Calculated Celsius) 36.22779 degrees C (36.0 - 37.3) Pulse Rate [...] Has specimen been collected/obtained? Y Urine Specific [place] February 07, 2014 11:10am 1.020 - Has [...] 2008 11:38am Name: TROY AVILES Unit #: [id number] : 1985 Sex: F Loc / Svc: ED DOS: Signed Report #: [id number] DIAGNOSTIC IMAGING REPORT TYPE OF EXAM: KUB [...] Encounters Encounter Location Date/Time Registered Emergency Room [facility] 02/07/14 10:36am Departed Emergency Room [facility] 01/05/14 7:51pm Recent Diagnosis
--- OUTSIDE RECORDS SUMMARY | 2016-10-09 11:22 | XMS REPORT | Continuity of Care Document ---
Author Author [facility] Organization [facility] Address Unknown Phone Unavailable Support Name Relationship Address Phone BEULAH LOUIS MD Caregiver [facility] [address] [place] [address] Unavailable SARBJIT MONTE MD Caregiver [address] [place] [address] [phone] TORO SIMMONS Next Of Kin [address] [place] [address] Insurance Providers Payer Name Policy Number Subscriber [...] F (96.8 - 99.1) Temperature (Calculated Celsius) 36.38300 degrees C (36.0 - 37.3) Pulse Rate [...] Report July 29, 2014 4:27pm REFERENCE LAB [id number] - Lipase August 19, 2014 9:06pm 273 [...] Has specimen been collected/obtained? Y Urine Specific [place] August 19, 2014 9:42pm 1.010 L - [...] 2014 3:40pm Name: TROY AVILES Unit #: [id number] : 1985 Sex: F Loc / Svc: ED DOS: 07/30/14 Signed Report #: [id number] DIAGNOSTIC IMAGING REPORT TYPE OF EXAM: CHEST [...] ADDON completed 06/15/14 TX/PRO/DX INJ SAME DRUG BILLING AND ACCOUNTING STAFF ASSISTANT completed 06/15/14 HYDRATE IV INFUSION ADD-ON completed [...] ADDON completed 07/30/14 TX/PRO/DX INJ SAME DRUG BILLING AND ACCOUNTING STAFF ASSISTANT completed 07/30/14 Encounters Encounter Location Date/Time Departed Emergency Room [facility] 08/19/14 7:04pm Departed Emergency Room [facility] 07/30/14 9:52pm Departed Emergency Room [facility] 07/23/14 11:53am Departed Emergency Room [facility] 07/15/14 3:56pm Departed Emergency Room [facility] 06/15/14 4:17pm Departed Emergency Room [facility] 06/08/14 5:33pm Recent Diagnosis
--- OUTSIDE RECORDS SUMMARY | 2016-10-09 11:22 | XMS REPORT | Continuity of Care Document ---
Author Author [facility] Organization [facility] Address Unknown Phone Unavailable Support Name Relationship Address Phone NEO, SHAMA Caregiver [facility] [address] [place] [phone] SARBJIT MONTE MD Caregiver [address] [place] [address] [phone] TORO SIMMONS Next Of Kin [address] [place] [address] Insurance Providers Payer Name Policy Number Subscriber [...] F (96.8 - 99.1) Temperature (Calculated Celsius) 36.30645 degrees C (36.0 - 37.3) Pulse Rate [...] Has specimen been collected/obtained? Y Urine Specific [place] June 15, 2014 5:15pm >=1.030 H - [...] Report February 27, 2014 4:08am REFERENCE LAB [id number] - Anti-Nuclear Antibody (LAB) March 01, 2008 [...] 2014 3:40pm Name: TROY AVILES Unit #: [id number] : 1985 Sex: F Loc / [facility] [place]: ED DOS: 06/15/14 Signed Report #: [id number] DIAGNOSTIC IMAGING REPORT TYPE OF EXAM: CT [...] ADDON completed 06/15/14 TX/PRO/DX INJ SAME DRUG CRUSHING FOREMAN completed 06/15/14 Encounters Encounter Location Date/Time Departed Emergency Room [facility] 07/15/14 3:56pm Departed Emergency Room [facility] 06/15/14 4:17pm Departed Emergency Room [facility] 06/08/14 5:33pm Departed Emergency Room [facility] 05/17/14 11:22pm Departed Emergency Room [facility] 05/01/14 6:45pm Departed Emergency Room [facility] 04/28/14 2:47pm Recent Diagnosis
--- OUTSIDE RECORDS SUMMARY | 2016-10-09 11:22 | XMS REPORT | Continuity of Care Document ---
Author Author [facility] Organization [facility] Address Unknown Phone Unavailable Support Name Relationship Address Phone SARBJIT MONTE MD Caregiver [address] [place] [phone] PUJA DEWEY MD Caregiver [address] [place] [phone] [facility] FADY Next Of Kin [address] [place] [address] Insurance Providers Payer Name Policy [...] F (96.8 - 99.1) Temperature (Calculated Celsius) 35.14764 degrees C (36.0 - 37.3) Pulse Rate [...] Has specimen been collected/obtained? Y Urine Specific [place] March 10, 2014 7:28pm >=1.030 H - [...] Report February 27, 2014 4:08am REFERENCE LAB [id number] - Anti-Nuclear Antibody (LAB) March 01, 2008 [...] ADDON completed 02/27/14 TX/PRO/DX INJ SAME DRUG DOPE WORKER completed 02/27/14 HYDRATE IV INFUSION ADD-ON completed 02/27/14 THER/PROPH/DIAG INJ IV PUSH completed 03/10/14 TX/PRO/DX INJ NEW DRUG ADDON completed 03/10/14 TX/PRO/DX INJ SAME DRUG DOPE WORKER completed 03/10/14 HYDRATE IV INFUSION ADD-ON completed 03/10/14 DRAINAGE OF SKIN ABSCESS completed 05/01/14 SHAMA LARSON DO Encounters Encounter Location Date/Time Departed Emergency Room [facility] 05/17/14 11:22pm Departed Emergency Room [facility] 05/01/14 6:45pm Departed Emergency Room [facility] 04/28/14 2:47pm Departed Emergency Room [facility] 03/10/14 5:24pm Departed Emergency Room [facility] 02/27/14 12:25am Recent Diagnosis
--- OUTSIDE RECORDS SUMMARY | 2016-10-09 11:23 | XMS REPORT | Continuity of Care Document ---
Author Author [facility] Organization [facility] Address Unknown Phone Unavailable Support Name Relationship Address Phone LEVAR SEO MD Caregiver [address] [place] [address] SARBJIT MONTE MD Caregiver [address] [place] [phone] TORO SIMMONS Next Of Kin [address] [place], [place] [phone] Insurance Providers Payer Name Policy Number Subscriber [...] F (96.8 - 99.1) Temperature (Calculated Celsius) 36.46596 degrees C (36.0 - 37.3) Pulse Rate [...] Has specimen been collected/obtained? Y Urine Specific [place] June 15, 2014 5:15pm >=1.030 H - [...] Report February 27, 2014 4:08am REFERENCE LAB [id number] - Anti-Nuclear Antibody (LAB) March 01, 2008 [...] Encounters Encounter Location Date/Time Departed Emergency Room [facility] 06/15/14 4:17pm Departed Emergency Room [facility] 06/08/14 5:33pm Departed Emergency Room [facility] 05/17/14 11:22pm Departed Emergency Room [facility] 05/01/14 6:45pm Departed Emergency Room [facility] 04/28/14 2:47pm Recent Diagnosis
--- OUTSIDE RECORDS SUMMARY | 2016-10-09 11:23 | XMS REPORT | Continuity of Care Document ---
Author Author [facility] Organization [facility] Address Unknown Phone Unavailable Support Name Relationship Address Phone NEOSHAMA BAGLEY Caregiver [facility] [address] [place], [place] [phone] SARBJIT MONTE MD Caregiver [address] [place], [place] [phone] DEBRADAVIDE BAUTISTAAE Next Of Kin [address] [place] [address] Insurance Providers Payer Name Policy Number Subscriber [...] F (96.8 - 99.1) Temperature (Calculated Celsius) 36.83752 degrees C (36.0 - 37.3) Pulse Rate [...] Has specimen been collected/obtained? Y Urine Specific [place] March 10, 2014 7:28pm >=1.030 H - [...] Report February 27, 2014 4:08am REFERENCE LAB [id number] - Anti-Nuclear Antibody (LAB) March 01, 2008 [...] 2014 3:40pm Name: TROY AVILES Unit #: [id number] : 1985 Sex: F Loc / Svc: ED DOS: Signed Report #: [id number] DIAGNOSTIC IMAGING REPORT TYPE OF EXAM: KUB [...] ADDON completed 02/27/14 TX/PRO/DX INJ SAME DRUG BATTERY CONTAINER TESTER completed 02/27/14 HYDRATE IV INFUSION ADD-ON completed 02/27/14 THER/PROPH/DIAG INJ IV PUSH completed 03/10/14 TX/PRO/DX INJ NEW DRUG ADDON completed 03/10/14 TX/PRO/DX INJ SAME DRUG BATTERY CONTAINER TESTER completed 03/10/14 HYDRATE IV INFUSION ADD-ON completed 03/10/14 Encounters Encounter Location Date/Time Departed Emergency Room [facility] 05/01/14 6:45pm Departed Emergency Room [facility] 04/28/14 2:47pm Departed Emergency Room [facility] 03/10/14 5:24pm Departed Emergency Room [facility] 02/27/14 12:25am Departed Emergency Room [facility] 02/07/14 10:36am Recent Diagnosis
--- OUTSIDE RECORDS SUMMARY | 2016-10-09 11:23 | XMS REPORT ---
Author Author [facility] - Organization Unknown Address Unknown Phone Unavailable [...] (5.0-8.0 ) Protein Negative (Negative ) Specific [place] 1.016 (1.003-1.030 ) Collection Type: Clean Catch Urobilinogen Negative mg/dL (-<1.0 mg/dL)
--- OUTSIDE RECORDS SUMMARY | 2016-10-09 11:26 | XMS REPORT | Continuity of Care Document ---
Author Author [facility] Organization [facility] Address Unknown Phone Unavailable Support Name Relationship Address Phone SARBJIT MONTE MD Caregiver [address] [place] [phone] PUJA DEWEY MD Caregiver [address] [place] [phone] TORO SIMMONS Next Of Kin [address] [place], [place] [id number] Insurance Providers Payer Name Policy Number Subscriber [...] F (96.8 - 99.1) Temperature (Calculated Celsius) 36.33254 degrees C (36.0 - 37.3) Pulse Rate [...] Report July 29, 2014 4:27pm REFERENCE LAB [id number] - Lipase August 19, 2014 9:06pm 273 [...] Has specimen been collected/obtained? Y Urine Specific [place] August 19, 2014 9:42pm 1.010 L - [...] 2014 3:40pm Name: TROY AVILES Unit #: [id number] : 1985 Sex: F Loc / Svc: ED DOS: 08/28/14 Signed Report #: [id number] DIAGNOSTIC IMAGING REPORT TYPE OF EXAM: CHEST, [...] ADDON completed 06/15/14 TX/PRO/DX INJ SAME DRUG LUMBER MOVER completed 06/15/14 HYDRATE IV INFUSION ADD-ON completed [...] ADDON completed 07/30/14 TX/PRO/DX INJ SAME DRUG LUMBER MOVER completed 07/30/14 Encounters Encounter Location Date/Time Departed Emergency Room [facility] 08/28/14 9:36am Departed Emergency Room [facility] 08/19/14 7:04pm Departed Emergency Room [facility] 07/30/14 9:52pm Departed Emergency Room [facility] 07/23/14 11:53am Departed Emergency Room [facility] 07/15/14 3:56pm Departed Emergency Room [facility] 06/15/14 4:17pm Departed Emergency Room [facility] 06/08/14 5:33pm Recent Diagnosis
--- OUTSIDE RECORDS SUMMARY | 2016-10-09 11:26 | XMS REPORT | Continuity of Care Document ---
Author Author [facility] Organization [facility] Address Unknown Phone Unavailable Support Name Relationship Address Phone SARBJIT MONTE MD Caregiver [address] [place] [phone] PUJA DEWEY MD Caregiver [address] [place] [phone] TORO SIMMONS Next Of Kin [address] [place], [place] [id number] Insurance Providers Payer Name Policy Number Subscriber [...] F (96.8 - 99.1) Temperature (Calculated Celsius) 36.37015 degrees C (36.0 - 37.3) Pulse Rate [...] Has specimen been collected/obtained? Y Urine Specific [place] June 15, 2014 5:15pm >=1.030 H - [...] Report February 27, 2014 4:08am REFERENCE LAB [id number] - Anti-Nuclear Antibody (LAB) March 01, 2008 [...] 2014 3:40pm Name: TROY AVILES Unit #: [id number] : 1985 Sex: F Loc / Svc: ED DOS: 07/23/14 Signed Report #: [id number] DIAGNOSTIC IMAGING REPORT TYPE OF EXAM: US [...] ADDON completed 06/15/14 TX/PRO/DX INJ SAME DRUG REIMBURSEMENT MANAGER completed 06/15/14 Encounters Encounter Location Date/Time Departed Emergency Room [facility] 07/23/14 11:53am Departed Emergency Room [facility] 07/15/14 3:56pm Departed Emergency Room [facility] 06/15/14 4:17pm Departed Emergency Room [facility] 06/08/14 5:33pm Departed Emergency Room [facility] 05/17/14 11:22pm Departed Emergency Room [facility] 05/01/14 6:45pm Departed Emergency Room [facility] 04/28/14 2:47pm Recent Diagnosis
--- OUTSIDE RECORDS SUMMARY | 2016-10-09 11:26 | XMS REPORT | Continuity of Care Document ---
Author Author [facility] Organization [facility] Address Unknown Phone Unavailable Support Name Relationship Address Phone SARBJIT MONTE MD Caregiver [address] [place] [phone] JULIAN LE MD Caregiver [address] [place] [phone] TORO SIMMONS Next Of Kin [address] [place] [place], [place] [id number] Insurance Providers Payer Name Policy Number Subscriber [...] F (96.8 - 99.1) Temperature (Calculated Celsius) 36.08324 degrees C (36.0 - 37.3) Pulse Rate [...] Has specimen been collected/obtained? 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
--- OUTSIDE RECORDS SUMMARY | 2016-10-09 11:27 | XMS REPORT | Continuity of Care Document ---
Author Author [facility] Organization [facility] Address Unknown Phone Unavailable Support Name Relationship Address Phone SARBJIT MONTE MD Caregiver [address] [place] [phone] PUJA DEWEY MD Caregiver [address] [place] [phone] TORO SIMMONS Next Of Kin [address] [place], [place] [id number] Insurance Providers Payer Name Policy Number Subscriber [...] F (96.8 - 99.1) Temperature (Calculated Celsius) 36.58351 degrees C (36.0 - 37.3) Pulse Rate [...] Report July 29, 2014 4:27pm REFERENCE LAB [id number] - Lipase July 23, 2014 12:13pm 77 [...] Has specimen been collected/obtained? 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 TUTOR completed 06/15/14 HYDRATE IV INFUSION ADD-ON completed 07/23/14 THER/PROPH/DIAG INJ IV PUSH completed 07/23/14 TX/PRO/DX INJ NEW DRUG ADDON completed 07/23/14 TX/PRO/DX INJ NEW DRUG ADDON completed 07/23/14 TX/PRO/DX INJ NEW DRUG ADDON completed 07/23/14 TX/PRO/DX INJ NEW DRUG ADDON completed 07/23/14 TX/PRO/DX INJ NEW DRUG ADDON completed 07/23/14 Encounters Encounter Location Date/Time Registered Emergency Room [facility] 07/30/14 9:52pm Departed Emergency Room [facility] 07/23/14 11:53am Departed Emergency Room [facility] 07/15/14 3:56pm Departed Emergency Room [facility] 06/15/14 4:17pm Departed Emergency Room [facility] 06/08/14 5:33pm Departed Emergency Room [facility] 05/17/14 11:22pm Recent Diagnosis
--- OUTSIDE RECORDS SUMMARY | 2016-10-09 11:28 | XMS REPORT | Continuity of Care Document ---
Author Author [facility] Organization [facility] Address Unknown Phone Unavailable Support Name Relationship Address Phone BEULAH LOUIS MD Caregiver [facility] [address] [place] [address] Unavailable DAXA FLOWERS II, MD Caregiver [address] [place] [address] [phone] IRENE TURCIOS Caregiver [facility] [address] [place] [address] YESIKA AVILES Next Of Kin [address] [place] [id number] Insurance Providers Payer Name Policy Number Subscriber [...] F (96.8 - 99.1) Temperature (Calculated Celsius) 36.30768 degrees C (36.0 - 37.3) Pulse Rate [...] Has specimen been collected/obtained? Y Urine Specific [place] January 05, 2014 9:50pm 1.015 - Has [...] Encounters Encounter Location Date/Time Departed Emergency Room [facility] 01/05/14 7:51pm Recent Diagnosis
--- OUTSIDE RECORDS SUMMARY | 2016-10-09 11:28 | XMS REPORT | Continuity of Care Document ---
Author Author [facility] Organization [facility] Address Unknown Phone Unavailable Support Name Relationship Address Phone LEVAR SEO MD Caregiver [address] [place] [phone] SARBJIT MONTE MD Caregiver [address] [place] [phone] TORO SIMMONS Next Of Kin [address] [place], [place] [id number] Insurance Providers Payer Name Policy Number Subscriber [...] F (96.8 - 99.1) Temperature (Calculated Celsius) 36.54315 degrees C (36.0 - 37.3) Pulse Rate [...] 24, 2014 7:34pm 4.8 % N 0-9.0 FB-Mzv-V-Type Natriuretic Peptide September 24, 2014 7:34pm 38 [...] Has specimen been collected/obtained? Y Urine Specific [place] September 19, 2014 1:07am >=1.030 H - [...] 2014 3:40pm Name: TROY AVILES Unit #: [id number] : 1985 Sex: F Loc / Svc: ED DOS: 08/28/14 Signed Report #: [id number] DIAGNOSTIC IMAGING REPORT TYPE OF EXAM: CHEST, [...] ADDON completed 07/30/14 TX/PRO/DX INJ SAME DRUG COMMUNICATIONS PLANNER completed 07/30/14 HYDRATE IV INFUSION ADD-ON completed [...] Encounters Encounter Location Date/Time Registered Emergency Room [facility] 09/24/14 7:07pm Departed Emergency Room [facility] 09/19/14 12:32am Departed Emergency Room [facility] 08/28/14 9:36am Departed Emergency Room [facility] 08/19/14 7:04pm Departed Emergency Room [facility] 07/30/14 9:52pm Departed Emergency Room [facility] 07/23/14 11:53am Departed Emergency Room [facility] 07/15/14 3:56pm Recent Diagnosis
--- OUTSIDE RECORDS SUMMARY | 2016-10-09 11:28 | XMS REPORT | Continuity of Care Document ---
Author Author [facility] Organization [facility] Address Unknown Phone Unavailable Support Name Relationship Address Phone BEULAH LOUIS MD Caregiver [address] [place] [address] Unavailable FADY AGUIAR Next Of Kin [address] [place] [address] Insurance Providers Payer Name Policy Number Subscriber [...] F (96.8 - 99.1) Temperature (Calculated Celsius) 36.75384 degrees C (36.0 - 37.3) Pulse Rate [...] Has specimen been collected/obtained? Y Urine Specific [place] February 07, 2014 11:10am 1.020 - Has [...] 2008 11:38am Name: TROY AVILES Unit #: [id number] : 1985 Sex: F Loc / Svc: ED DOS: Signed Report #: [id number] DIAGNOSTIC IMAGING REPORT TYPE OF EXAM: KUB [...] Encounters Encounter Location Date/Time Registered Emergency Room [facility] 02/27/14 12:25am Departed Emergency Room [facility] 02/07/14 10:36am Departed Emergency Room [facility] 01/05/14 7:51pm Recent Diagnosis
--- NOTE | 2016-10-09 11:29 | NUR ---
DR DR RIOJAS AT BEDSIDE.
[2016-10-09] MEDS ORDERED: LEVO88TA7 PO (11:33)
[2016-10-09] MEDS ORDERED: ALBUTEROL INH.SOLN. 2.5 MG/0.5 ML (0.5%) Neb. AEROSOL ONE (11:45)
--- NOTE | 2016-10-09 11:49 | ERPDOC ---
Departure Disposition Decision Date: Oct 09, 2016 Disposition Decision Time: 13:10 Disposition: 01 DISCHARGED HOME, SELF-CARE Impression Impression Impression: Primary Impression: Acute bronchitis Bronchitis organism: unspecified organism Qualified Codes: J20.9 - Acute bronchitis, unspecified Severity: Mild Condition: Improved Seen By: Physician only Referrals: DAXA FLOWERS II, MD (Family) 2 Days Patient Instructions: Acute Bronchitis (ED) Problems/Meds/Labs Reviewed?: Yes Medications reviewed and manag: Yes Follow up care ordered?: Yes Mental Status: Alert, Oriented Scripts Albuterol Sulfate (Proair HFA 90 mcg/actuation) 8.5 Gm Hfa.aer.ad 2 PUFF INH Q4H Y for WHEEZING, #1 INHALER 0 Refills Prov: JOHN RIOJAS DO 10/09/16 Albuterol Sulfate (Albuterol Sulfate) 2.5 Mg/0.5 Ml Vial.neb 1 VIAL AEROSOL Q4HR, #60 VIAL 1 Refill Prov: JOHN RIOJAS DO 10/09/16 Prednisone (Prednisone) 20 Mg Tablet 60 MG PO DAILY for 5 Days, #15 TAB 0 Refills Take daily each morning Prov: JOHN RIOJAS DO 10/09/16 Azithromycin (Zithromax Tri-Herbert) 500 Mg Tablet 500 MG PO DIRECTED, #1 PACK 0 Refills 2 TABLETS FOR 1 DAY THEN, 1 TABLET FOR 4 DAYS Prov: JOHN RIOJAS DO 10/09/16 HPI - General Medical General Chief Complaint: General Stated Complaint: SOB Time Seen by Provider: 11:13 Source: patient Exam Limitations: no limitations HPI - General Medical Initial Comments 30-year-old female presents to the emergency department with a chief complaint of cough and wheezing. Patient notes that she feels short of breath. Patient has a history of asthma. Patient denies any current pain or discomfort. Patient is currently being treated for a kidney stone by [facility]. Patient noted onset of cough and shortness of breath on Monday. Cough is nonproductive. She denies any other complaints or associated symptoms. She was at home when her symptoms began. Symptoms have been persistent in nature since onset. Symptoms have had a gradual progression in nature. Patient is out of her home albuterol medications. Occurred At: home Onset: Gradual Allergies: Coded Allergies: peanut oil (Verified Allergy, Severe, ANAPHYLACTIC REACTION, 10/09/16) tomato (Verified Allergy, Unknown, 4/9/17) ketorolac (Verified Adverse Reaction, Intermediate, ULCERS/INCREASED BLEEDING, 10/09/16) ibuprofen (Verified Adverse Reaction, Mild, BLEEDING, 10/09/16) NOSE BLEED Past History Patient Surgical History Csection BTL T&A Colonoscopy 2015 Past Medical History Cardiac: A-fib Respiratory: asthma GI: ulcerative colitis Neurological: headaches, migraines Psychological: anxiety, drug abuse Surgical History General: colonoscopy, tonsils Reproductive/: , tubal ligation Joint: shoulder Family History Family PMH: FOUND: [place], cancer, diabetes, hypertension Vaccines Hx Influenza Vaccination: Yes (MAY 2016) Hx Pneumococcal Vaccination: No Hx Tetanus, Diptheria, Pertuss: Yes (2011) Social History Smoking Status: Current every day smoker # of Packs/Tins per Day: 0.5 Substance Use Type: does not use Alcohol Intake: none Marital Status: Single Sexuality: female partner Current Occupational Status: employed Review of Systems Constitutional Constitutional: DENIES: chills, fever Eyes General: DENIES: erythema, exudate Lids/Accessories: DENIES: erythema, swelling Vision: DENIES: acuity, blurring ENMT Ears: DENIES: drainage, erythema Hearing: DENIES: hearing loss Balance: DENIES: ataxia, falling to one side Sinuses: DENIES: congestion, pain Nose: DENIES: nosebleeds, pain Mouth/Throat: DENIES: painful swallowing, sore throat Teeth: DENIES: pain Jaw: DENIES: pain Cardiovascular Cardiac: DENIES: chest pain, dyspnea on exertion Rhythm/Rate: DENIES: irregular beat, palpitations Vascular: DENIES: pedal edema, unilateral swelling Pulmonary Respiratory: cough, dyspnea, DENIES: pleuritic chest pain, sputum GI Upper Abdomen: DENIES: nausea, pain, vomiting Lower Abdomen: DENIES: diarrhea, pain General: DENIES: dysuria, frequency Musculoskeletal General: DENIES: pain, tenderness Integumentary Skin: DENIES: itching, rash Neurological General: DENIES: headache, numbness, weakness Psychiatric Psychiatric: DENIES: emotional instability, suicidal ideation/attempt Endocrine Endocrine: DENIES: polydipsia, polyphagia Hematologic/Lymphatic Hematologic/Lymphatic: DENIES: frequent nosebleeds, lymphadenopathy Allergic/Immunological Allergic/Immunoligical: DENIES: allergic reactions, hives Physical Exam General General Nourishment: well nourished, well developed, appears stated age, no acute distress, adult General Body Habitus: well groomed Vitals and Pain First Documented Vital Signs Date Time Temp Pulse Resp B/P Pulse Ox O2 Delivery O2 Flow Rate FiO2 10/09/16 11:09 97.3 96 32 126/82 100 Room Air Weight: Kilograms: 84.300 Height (feet): 5 Height (inches): 7.00 Triage Pain Scale: RN VS reviewed by Provider: Yes Normal Exams: Head: Normocephalic w/o trauma Eyes: Pupils are PERRLA w/ EOMI, No scleral icterus, irritation, or foreign bodies noted ENMT: No facial trauma, nasal exudates, pharyngeal erythema, or exudates are noted Dental: No fractured, loose, or missing teeth noted Neck: Full range of motion, without adenopathy, JVD, bruits or thyromegaly Chest/Resp: with good airflow, and symmetry bilaterally CV: Regular rate and rhythm, without murmur or gallop, Pulses 2+ all extremities, capillary refill, <2 seconds all ext., no pedal edema noted Abdomen: Bowel sounds positive, soft, non-tender, non-distended, no hepatosplenomegaly, masses or bruits noted Lymphatic: No lymphadenopathy, or lymphedema noted Musculoskeletal: No tenderness, or deformity noted, good range of motion, all extremities Integumentary: No rashes, hives, or bruising noted, hair and nails, without abnormality Neurologic: Patient is alert, and oriented, cranial nerves, motor/sensory/ cerebellar, exams w/o gross deficits, to observation Psychiatric: Patient exhibits, appropriate attention, emotion and affect Respiratory (brief) Comments Scattered end expiratory wheezes. Differential Diagnoses Considering: Metabolic, Other (asthma/pneumonia/COPD) Progress Results/Orders Orders Procedure Category Date Status Time Cbc W/Auto LAB 10/09/16 Complete Diff-Reflex Manual Cmp - Comprehensive LAB 10/09/16 Complete Metabolic Troponin I W LAB 10/09/16 Complete Hemolysis Index EKG EKG 10/09/16 Taken Chest, Pa & Lateral RAD 10/09/16 Taken 11:34 Albuterol (Proventil) PHA 10/09/16 Complete 11:45 Albuterol/Ipratropium PHA 10/09/16 Complete (Duoneb) 13:00 Prednisone PHA 10/09/16 Complete (Prednisone) 13:15 Azithromycin PHA 10/09/16 Complete (Zithromax 500 Mg) 13:15 Hydrocodone/Acetaminophen PHA 10/09/16 Complete (Roca 7.5/325 13:15 Lab Results Laboratory Tests Test 10/09/16 12:05 White Blood Count 4.0T/MM3 Red Blood Count 4.39M/MM3 Hemoglobin 12.4GM/DL Hematocrit 38.6% Mean Corpuscular Volume 87.9UM3 Mean Corpuscular Hemoglobin 28.2UUG Mean Corpuscular Hemoglobin Concent 32.1GM/DL RDW Standard Deviation 43.0FL Platelet Count 216T/MM3 Mean Platelet Volume 9.9UM3 Immature Granulocyte % (Auto) 0.0% Neutrophils (%) (Auto) 44.6% Lymphocytes (%) (Auto) 46.8% Monocytes (%) (Auto) 6.6% Eosinophils (%) (Auto) 1.5% Basophils (%) (Auto) 0.5% Absolute Immature Granulocyte (auto 0.00T/MM3 Absolute Neutrophils (auto) 1.8T/MM3 Absolute Lymphocytes (auto) 1.9T/MM3 Absolute Monocytes (auto) 0.3T/MM3 Absolute Eosinophils (auto) 0.1T/MM3 Absolute Basophils (auto) 0.0T/MM3 Turbidity < 20 Sodium Level 145MEQ/L Potassium Level 4.0MEQ/L Chloride Level 112MEQ/L Carbon Dioxide Level 21MEQ/L Anion Gap 12MEQ/L Blood Urea Nitrogen 11.0MG/DL Creatinine 0.7MG/DL Glomerular Filtration Rate Calc 97 BUN/Creatinine Ratio 16RATIO Glucose Level 100MG/DL Calculated Osmolality 278MOSM/KG Calcium Level 9.6MG/DL Total Bilirubin 0.50MG/DL Icterus Index < 2 Aspartate Amino Transf (AST/SGOT) 28U/L Alanine Aminotransferase (ALT/SGPT) 33U/L Alkaline Phosphatase 74U/L Troponin I < 0.012ng/ml Total Protein 7.2G/DL Albumin 4.4G/DL Globulin 2.8G/DL Albumin/Globulin Ratio 1.6RATIO Chemistry Specimen Hemolysis < 15 Medications Current ED Medications Albuterol (Proventil) 2.5 mg O ONCE AEROSOL Last administered on 10/09/16t 11: 47; Start 10/09/16 at 11:45; Stop 10/09/16 at 11:46; Status DC Albuterol/ Ipratropium (Duoneb) 3 ml O ONCE AEROSOL Last administered on 12:59; Start 10/09/16 at 13:00; Stop 10/09/16 at 13:01; Status DC Prednisone (PredniSONE) 50 mg O ONCE PO Last administered on 10/09/16 13:14; Start 10/09/16 at 13:15; Stop 10/09/16 at 13:16; Status DC Azithromycin (ZITHROMAX 500 mg) 500 mg O ONCE PO Last administered on 13:13; Start 10/09/16 at 13:15; Stop 10/09/16 at 13:16; Status DC Acetaminophen/ Hydrocodone Bitart (Roca 7.5/325) 1 tab O ONCE PO Last administered on 10/09/16 13:17; Start 10/09/16 at 13:15; Stop 10/09/16 at 13:16; Status DC Progress Progress Labs / Imaging were discussed in detail with the patient and questions were answered. Patient was given nebulized aersol treatments, 50 mg of prednisone, and 500 mg of Zithromax in the ED. Patient is feeling markedly improved. Patient is discharged home in improved condition. She is to follow up as directed. She is to return to the ED if her condition worsens or changes in any manner. Patient is in agreement with the current plan of management. Patient is provided with prescriptions for albuterol metered-dose inhaler, nebulizer machine, albuterol solution, prednisone, and a Z-Herbert. EKG EKG : Rate: 60-100 Rhythm: sinus [place]: normal QRS: normal Intervals: normal ST/T: normal Interpreted by: signing physician Xray Xray : Xray: CXR PA/Lat Interpretation: Normal, Interpreted by JOHN Blackwell DO Oct 09, 2016 11:49
--- NOTE | 2016-10-09 12:04 | NUR ---
[employer] IN ROOM FOR VENIPUNCTURE.
--- NOTE | 2016-10-09 12:10 | NUR ---
RADIOLOGY PT TO RADIOLOGY VIA [facility].
[2016-10-09 12:11] LABS: BASOPHILS % (AUTO) 0.5 % (0-2); EOSINOPHILS # (AUTO) 0.1 T/MM3 (0-0.5); EOSINOPHILS % (AUTO) 1.5 % (0-4); HCT - HEMATOCRIT 38.6 % (36-46); HGB - HEMOGLOBIN 12.4 GM/DL (12-16); LYMPHOCYTES # (AUTO) 1.9 T/MM3 (1-4.8); LYMPHOCYTES % (AUTO) 46.8 % (23-45); MEAN CORPUSCULAR HGB 28.2 UUG (26-34); MEAN CORPUSCULAR HGB CONC(MCHC 32.1 GM/DL (31-37); MEAN CORPUSCULAR VOLUME 87.9 UM3 (80-100); MEAN PLATELET VOLUME 9.9 UM3 (9.4-12.4); MONOCYTES # (AUTO) 0.3 T/MM3 (0-0.8); MONOCYTES % (AUTO) 6.6 % (0-9.0); NEUTROPHILS #(AUTO)-ABSOLUTE 1.8 T/MM3 (1.8-7.7); NEUTROPHILS % (AUTO) 44.6 % (33-66); RED BLOOD COUNT 4.39 M/MM3 (4.00-5.20)
--- NOTE | 2016-10-09 12:17 | NUR ---
RADIOLOGY PT RETURNED.
[2016-10-09 12:22] LABS: ALBUMIN 4.4 G/DL (3.5-5.0); ALBUMIN/GLOBULIN RATIO 1.6 RATIO (1.1-2.2); ALKALINE PHOSPHATASE 74 U/L (38-126); ALT (SGPT) 33 U/L (9-52); ANION GAP 12 MEQ/L (5-15); AST (SGOT) 28 U/L (14-36); BUN/CREATININE RATIO 16 RATIO (6-26); CALCIUM 9.6 MG/DL (8.4-10.2); CHLORIDE 112 MEQ/L (98-107); CO2 - CARBON DIOXIDE 21 MEQ/L (22-30); CREATININE 0.7 MG/DL (0.7-1.2); GLOMERULAR FILTRATION RATE 97; GLUCOSE 100 MG/DL (65-110); SODIUM 145 MEQ/L (134-144); TOTAL PROTEIN 7.2 G/DL (6.3-8.2)
[2016-10-09] MEDS ORDERED: ALBUTEROL/IPRATROPIUM INHAL. 2.5mg-0.5mg/3ml Neb. AEROSOL ONE (13:00)
--- NOTE | 2016-10-09 13:05 | NUR ---
RT AT BEDSIDE.
--- NOTE | 2016-10-09 13:09 | NUR ---
DR DR RIOJAS AT BEDSIDE.
[2016-10-09] MEDS ORDERED: PRED20TA PO (13:13)
[2016-10-09] MEDS ORDERED: ALBU2.5V2 AEROSOL (13:13)
[2016-10-09] MEDS ORDERED: ALBU8.5H INH (13:13)
[2016-10-09] MEDS ORDERED: AZIT500T2 PO (13:13)
[2016-10-09] MEDS ORDERED: AZITHROMYCIN 500 MG TABLET PO ONE (13:15)
[2016-10-09] MEDS ORDERED: PredniSONE 10 MG TABLET PO ONE (13:15)
[2016-10-09 13:25] VITALS: BP 113/76; PULSE 89; RESP 16; TEMP 98.3; O2SAT 98
--- NOTE | 2016-10-09 22:28 | DI ---
INDICATION: ITS.REASON: cough PROCEDURE: CHEST 2-VIEWS UPRIGHT (PA \T\ LAT) Encounter: Initial COMPARISON: September 06, 2015 FINDINGS: The lungs are clear without evidence of focal abnormal airspace opacity. There is no pleural effusion or pneumothorax. The heart size, mediastinal contours and pulmonary vascularity are within normal limits. There is no significant skeletal abnormality. IMPRESSION: No acute cardiopulmonary disease. .
== END 2016-10-09 13:25 | disposition home or self-care (01) ==
LOC: ED 11:06
DX: J20.9 Acute bronchitis, unspecified (principal); F17.200 Nicotine dependence, unspecified, uncomplicated
CPT/HCPCS: 36415; 71020; 80053; 84484; 85025; 93005; 94640; 99283; J7512; J7611; Q0144

== ENCOUNTER 2016-11-01 13:07 | Emergency (ER) | payer SELFPAY ==
[~2016-11-01] VITALS: Ht 170.2 cm; Wt 83.7 kg
[~2016-11-01 13:07] MED LIST changes: +ALBU2.5V2 AEROSOL; +ALBU8.5H INH; +AZIT500T2 PO; +LEVO88TA7 PO; -OXYC1TAB11 PO; +PRED20TA PO
[2016-11-01 13:10] VITALS: Ht 170.2 cm; Wt 83.7 kg
--- OUTSIDE RECORDS SUMMARY | 2016-11-01 13:10 | XMS REPORT | Continuity of Care Document ---
Author Author [facility] Organization [facility] Address Unknown Phone Unavailable Support Name Relationship Address Phone LONNY SEO MD Caregiver [address] [place] [address] SARBJIT MONTE MD Caregiver [address] [place], [place] [phone] DEBRAFADY BAUTISTA Next Of Kin [address] [place], [place] [id number] Insurance Providers Payer Name Policy Number Subscriber [...] F (96.8 - 99.1) Temperature (Calculated Celsius) 36.30457 degrees C (36.0 - 37.3) Pulse Rate [...] Has specimen been collected/obtained? 

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
--- OUTSIDE RECORDS SUMMARY | 2016-11-01 13:10 | XMS REPORT ---
Author Author [place], [facility] - Organization Unknown Address Unknown [...] of the patient or patient sales representative health insurance to confirm the list of medications with [...] Clean Catch Received : 02/03/13 21:31 Order#: [id number] Urine Culture FINAL 02/05/13 09:14 Mixed frank indicative of vaginal and/or skin contamination MARIA FOR RESULTS: * - NEW RESULT - RESULT WAS MODIFIED AFTER FINAL STATUS SET LAB--MICROBIOLOGY from 02/04/2013 1:50 PMOva And Parasite Exam Source: Stool Collected: 02/04/13 13:50 Site: Received : 02/04/13 14:00 Order#: [id number] Ova and Parasite Exam FINAL 02/05/13 11:34 S White blood cells present No ova or parasites observed . Specimen examined by formalin concentration procedure and trichrome-stained smear. S: Performed at:[place], [place] CLIA#[id number] MARIA FOR RESULTS: * - NEW RESULT - RESULT WAS MODIFIED AFTER FINAL STATUS SET C. difficile Toxin B Source: Stool Collected: 11/12 13:50 Site: Received : 02/04/13 14:01 Order#: [id number] C. difficile toxin B by PCR FINAL 02/04/13 21:08 Negative - C. difficile toxin B not detected by PCR MARIA FOR RESULTS: * - NEW RESULT - RESULT WAS MODIFIED AFTER FINAL STATUS SET Fecal Leucocyte Stain (Stool WBC) A Source: Stool Collected: 02/04/13 13:50 Site: Received : 02/04/13 14:01 Order#: [id number] Fecal Leucocyte Stain FINAL 02/04/13 14:12 Many white blood cells present MARIA FOR RESULTS: * - NEW RESULT - RESULT WAS MODIFIED AFTER FINAL STATUS SET LAB--MICROBIOLOGY from 02/04/2013 8:45 PMStool Culture and Shiga Toxin Test Source: Stool Collected: 02/04/13 20:45 Site: Received : 02/04/13 20:54 Order#: [id number] Shiga toxin test FINAL 02/06/13 08:11 Unable [...] Protein Pos 1+ A (Negative ) Specific [place] 1.015 (1.003-1.030 ) Collection Type: Clean Catch Urobilinogen Negative mg/dL (-<1.0 mg/dL) Bacteria Occasional A Epithelial Cells 5-10 /HPF Mucus Present RBC >50 /HPF A (0-2 /HPF) WBC 0-2 /HPF (0-4 /HPF)
--- OUTSIDE RECORDS SUMMARY | 2016-11-01 13:10 | XMS REPORT ---
Author Author [place], [facility] - Organization Unknown Address Unknown Phone [...] (5.0-8.0 ) Protein Negative (Negative ) Specific [place] 1.015 (1.003-1.030 ) Collection Type: Clean Catch Urobilinogen Negative mg/dL (-<1.0 mg/dL) Bacteria Rare Epithelial Cells 5-10 /HPF Mucus Present RBC 0-2 /HPF (0-2 /HPF) WBC 2-5 /HPF (0-4 /HPF)
--- OUTSIDE RECORDS SUMMARY | 2016-11-01 13:11 | XMS REPORT | Continuity of Care Document ---
Author Author [facility] Organization [facility] Address Unknown Phone Unavailable Support Name Relationship Address Phone BEULAH LOUIS MD Caregiver [facility] [address] [place] [address] Unavailable SARBJIT MONTE MD Caregiver [address] [place] [phone] TORO SIMMONS Next Of Kin [address] [place] [address] Insurance Providers Payer Name Policy Number Subscriber [...] F (96.8 - 99.1) Temperature (Calculated Celsius) 36.21558 degrees C (36.0 - 37.3) Pulse Rate [...] Has specimen been collected/obtained? Y Urine Specific [place] September 19, 2014 1:07am >=1.030 H - [...] 3:40pm Name: AVILESROSA ELENATROY A Unit #: [id number] : 1985 Sex: F Loc / Svc: ED DOS: 08/28/14 Signed Report #: [id number] DIAGNOSTIC IMAGING REPORT TYPE OF EXAM: CHEST, [...] ADDON completed 07/30/14 TX/PRO/DX INJ SAME DRUG HOUSING COORDINATOR completed 07/30/14 HYDRATE IV INFUSION ADD-ON completed [...] Encounters Encounter Location Date/Time Departed Emergency Room [facility] 09/19/14 12:32am Departed Emergency Room [facility] 08/28/14 9:36am Departed Emergency Room [facility] 08/19/14 7:04pm Departed Emergency Room [facility] 07/30/14 9:52pm Departed Emergency Room [facility] 07/23/14 11:53am Departed Emergency Room [facility] 07/15/14 3:56pm Recent Diagnosis
--- OUTSIDE RECORDS SUMMARY | 2016-11-01 13:11 | XMS REPORT ---
Author Author [place]/[facility], [facility] - Organization Unknown Address Unknown Phone Unavailable [...] (5.0-8.0 ) Protein Negative (Negative ) Specific [place] 1.009 (1.003-1.030 ) Collection Type: Clean Catch Urobilinogen Negative mg/dL (-<1.0 mg/dL) Bacteria Occasional A Epithelial Cells 2-5 /HPF Mucus Present RBC 0-2 /HPF (0-2 /HPF) WBC 2-5 /HPF (0-4 /HPF)
--- OUTSIDE RECORDS SUMMARY | 2016-11-01 13:11 | XMS REPORT | Continuity of Care Document ---
Author Author [facility] Organization [facility] Address Unknown Phone Unavailable Support Name Relationship Address Phone IRENE TURCIOS Caregiver [facility] [address] [facility] [address] [place] [address] JULIAN LE MD Caregiver [address] [place] [address] [place] [phone] FADY AGUIAR Next Of Kin [address] [place] [address] Insurance Providers Payer Name Policy [...] F (96.8 - 99.1) Temperature (Calculated Celsius) 36.05120 degrees C (36.0 - 37.3) Pulse Rate [...] Has specimen been collected/obtained? Y Urine Specific [place] March 10, 2014 7:28pm >=1.030 H - [...] Report February 27, 2014 4:08am REFERENCE LAB [id number] - Anti-Nuclear Antibody (LAB) March 01, 2008 [...] 2008 11:38am Name: TROY AVILES Unit #: [id number] : 1985 Sex: F Loc / Svc: ED DOS: Signed Report #: [id number] DIAGNOSTIC IMAGING REPORT TYPE OF EXAM: KUB [...] ADDON completed 02/27/14 TX/PRO/DX INJ SAME DRUG MEDICAL RECORDS CLERK completed 02/27/14 HYDRATE IV INFUSION ADD-ON completed 02/27/14 Encounters Encounter Location Date/Time Departed Emergency Room [facility] 03/10/14 5:24pm Departed Emergency Room [facility] 02/27/14 12:25am Departed Emergency Room [facility] 02/07/14 10:36am Departed Emergency Room [facility] 01/05/14 7:51pm Recent Diagnosis
--- OUTSIDE RECORDS SUMMARY | 2016-11-01 13:12 | XMS REPORT | Continuity of Care Document ---
Author Author [facility] Organization [facility] Address Unknown Phone Unavailable Support Name Relationship Address Phone JULIAN LE MD [address] [place] [phone] YESIKA AVILES Next Of Kin [address] [place] [address] Insurance Providers Payer Name Policy Number Subscriber [...] F (96.8 - 99.1) Temperature (Calculated Celsius) 36.45301 degrees C (36.0 - 37.3) Pulse Rate [...] Has specimen been collected/obtained? Y Urine Specific [place] February 07, 2014 11:10am 1.020 - Has [...] 2008 11:38am Name: TROY AVILES Unit #: [id number] : 1985 Sex: F Loc / Svc: ED DOS: Signed Report #: [id number] DIAGNOSTIC IMAGING REPORT TYPE OF EXAM: KUB [...] Encounters Encounter Location Date/Time Registered Emergency Room [facility] 02/07/14 10:36am Departed Emergency Room [facility] 01/05/14 7:51pm Recent Diagnosis
--- OUTSIDE RECORDS SUMMARY | 2016-11-01 13:12 | XMS REPORT | Continuity of Care Document ---
Author Author [facility] Organization [facility] Address Unknown Phone Unavailable Support Name Relationship Address Phone BEULAH LOUIS MD Caregiver [facility] [address] [place] [address] Unavailable SARBJIT MONTE MD Caregiver [address] [place] [address] [phone] TORO SIMMONS Next Of Kin [address] [place] [address] Insurance Providers Payer Name Policy Number Subscriber [...] F (96.8 - 99.1) Temperature (Calculated Celsius) 36.35064 degrees C (36.0 - 37.3) Pulse Rate [...] Report July 29, 2014 4:27pm REFERENCE LAB [id number] - Lipase August 19, 2014 9:06pm 273 [...] Has specimen been collected/obtained? Y Urine Specific [place] August 19, 2014 9:42pm 1.010 L - [...] 2014 3:40pm Name: TROY AVILES Unit #: [id number] : 1985 Sex: F Loc / Svc: ED DOS: 07/30/14 Signed Report #: [id number] DIAGNOSTIC IMAGING REPORT TYPE OF EXAM: CHEST [...] ADDON completed 06/15/14 TX/PRO/DX INJ SAME DRUG ELECTRIC RELAY TESTER completed 06/15/14 HYDRATE IV INFUSION ADD-ON completed [...] ADDON completed 07/30/14 TX/PRO/DX INJ SAME DRUG ELECTRIC RELAY TESTER completed 07/30/14 Encounters Encounter Location Date/Time Departed Emergency Room [facility] 08/19/14 7:04pm Departed Emergency Room [facility] 07/30/14 9:52pm Departed Emergency Room [facility] 07/23/14 11:53am Departed Emergency Room [facility] 07/15/14 3:56pm Departed Emergency Room [facility] 06/15/14 4:17pm Departed Emergency Room [facility] 06/08/14 5:33pm Recent Diagnosis
--- OUTSIDE RECORDS SUMMARY | 2016-11-01 13:12 | XMS REPORT | Continuity of Care Document ---
Author Author [facility] Organization [facility] Address Unknown Phone Unavailable Support Name Relationship Address Phone SARBJIT MONTE MD Caregiver [address] [phone] PUJA DEWEY MD Caregiver [address] [place] [phone] [facility] F[facility]Y Next Of Kin [address] [place] [address] Insurance Providers Payer Name Policy [...] F (96.8 - 99.1) Temperature (Calculated Celsius) 35.35180 degrees C (36.0 - 37.3) Pulse Rate [...] Has specimen been collected/obtained? Y Urine Specific [place] March 10, 2014 7:28pm >=1.030 H - [...] Report February 27, 2014 4:08am [facility] LAB [id number] - Anti-Nuclear Antibody (LAB) March 01, 2008 [...] ADDON completed 02/27/14 TX/PRO/DX INJ SAME DRUG RAIL ASSEMBLER completed 02/27/14 HYDRATE IV INFUSION ADD-ON completed 02/27/14 THER/PROPH/DIAG INJ IV PUSH completed 03/10/14 TX/PRO/DX INJ NEW DRUG ADDON completed 03/10/14 TX/PRO/DX INJ SAME DRUG RAIL ASSEMBLER completed 03/10/14 HYDRATE IV INFUSION ADD-ON completed 03/10/14 DRAINAGE OF SKIN ABSCESS completed 05/01/14 SHAMA LARSON DO Encounters Encounter Location Date/Time Departed Emergency Room [facility] 05/17/14 11:22pm Departed Emergency Room [facility] 05/01/14 6:45pm Departed Emergency Room [facility] 04/28/14 2:47pm Departed Emergency Room [facility] 03/10/14 5:24pm Departed Emergency Room [facility] 02/27/14 12:25am Recent Diagnosis
--- OUTSIDE RECORDS SUMMARY | 2016-11-01 13:13 | XMS REPORT ---
Author Author [facility] - Organization Unknown Address Unknown Phone [...] (5.0-8.0 ) Protein Negative (Negative ) Specific [place] 1.016 (1.003-1.030 ) Collection Type: Clean Catch Urobilinogen Negative mg/dL (-<1.0 mg/dL)
--- OUTSIDE RECORDS SUMMARY | 2016-11-01 13:13 | XMS REPORT | Continuity of Care Document ---
Author Author [facility] Organization [facility] Address Unknown Phone Unavailable Support Name Relationship Address Phone LEVAR SEO MD Caregiver [address] [place] [address] SARBJIT MONTE MD Caregiver [address] [place] [phone] TORO SIMMONS Next Of Kin [address] [place], [place] [phone] Insurance Providers Payer Name Policy Number Subscriber [...] F (96.8 - 99.1) Temperature (Calculated Celsius) 36.29297 degrees C (36.0 - 37.3) Pulse Rate [...] Has specimen been collected/obtained? Y Urine Specific [place] June 15, 2014 5:15pm >=1.030 H - [...] Report February 27, 2014 4:08am [facility] LAB [id number] - Anti-Nuclear Antibody (LAB) March 01, 2008 [...] Encounters Encounter Location Date/Time Departed Emergency Room [facility] 06/15/14 4:17pm Departed Emergency Room [facility] 06/08/14 5:33pm Departed Emergency Room [facility] 05/17/14 11:22pm Departed Emergency Room [facility] 05/01/14 6:45pm Departed Emergency Room [facility] 04/28/14 2:47pm Recent Diagnosis
--- OUTSIDE RECORDS SUMMARY | 2016-11-01 13:13 | XMS REPORT | Continuity of Care Document ---
Author Author [facility] Organization [facility] Address Unknown Phone Unavailable Support Name Relationship Address Phone NEO, SHAMA Caregiver [facility] [address] [phone] SARBJIT MONTE MD Caregiver [address] [place] [address] [phone] TORO SIMMONS Next Of Kin [address] [place] [address] Insurance Providers Payer Name Policy Number Subscriber [...] F (96.8 - 99.1) Temperature (Calculated Celsius) 36.76085 degrees C (36.0 - 37.3) Pulse Rate [...] Has specimen been collected/obtained? Y Urine Specific [place] June 15, 2014 5:15pm >=1.030 H - [...] Report February 27, 2014 4:08am [facility] [id number] - Anti-Nuclear Antibody (LAB) March 01, 2008 [...] 2014 3:40pm Name: TROY AVILES Unit #: [id number] : 1985 Sex: F Loc / [facility]: ED DOS: 06/15/14 Signed Report #: [id number] DIAGNOSTIC IMAGING REPORT TYPE OF EXAM: CT [...] ADDON completed 06/15/14 TX/PRO/DX INJ SAME DRUG ROOM DESIGNER completed 06/15/14 Encounters Encounter Location Date/Time Departed Emergency Room [facility] 07/15/14 3:56pm Departed Emergency Room [facility] 06/15/14 4:17pm Departed Emergency Room [facility] 06/08/14 5:33pm Departed Emergency Room [facility] 05/17/14 11:22pm Departed Emergency Room [facility] 05/01/14 6:45pm Departed Emergency Room [facility] 04/28/14 2:47pm Recent Diagnosis
--- OUTSIDE RECORDS SUMMARY | 2016-11-01 13:13 | XMS REPORT | Continuity of Care Document ---
Author Author [facility] Organization [facility] Address Unknown Phone Unavailable Support Name Relationship Address Phone NEOSHAMA BAGLEY Caregiver [facility] [address] [place], [place] [phone] SARBJIT MONTE MD Caregiver [address] [place], [place] [phone] DEBRADAVIDE BAUTISTAAE Next Of Kin [address] [place] [address] Insurance Providers Payer Name Policy Number Subscriber [...] F (96.8 - 99.1) Temperature (Calculated Celsius) 36.83971 degrees C (36.0 - 37.3) Pulse Rate [...] Has specimen been collected/obtained? Y Urine Specific [place] March 10, 2014 7:28pm >=1.030 H - [...] Report February 27, 2014 4:08am [facility] LAB [id number] - Anti-Nuclear Antibody (LAB) March 01, 2008 [...] 2014 3:40pm Name: TROY AVILES Unit #: [id number] : 1985 Sex: F Loc / Svc: ED DOS: Signed Report #: [id number] DIAGNOSTIC IMAGING REPORT TYPE OF EXAM: KUB [...] ADDON completed 02/27/14 TX/PRO/DX INJ SAME DRUG ELECTRICAL & INSTRUMENTATION SUPERVISOR completed 02/27/14 HYDRATE IV INFUSION ADD-ON completed 02/27/14 THER/PROPH/DIAG INJ IV PUSH completed 03/10/14 TX/PRO/DX INJ NEW DRUG ADDON completed 03/10/14 TX/PRO/DX INJ SAME DRUG ELECTRICAL & INSTRUMENTATION SUPERVISOR completed 03/10/14 HYDRATE IV INFUSION ADD-ON completed 03/10/14 Encounters Encounter Location Date/Time Departed Emergency Room [facility] 05/01/14 6:45pm Departed Emergency Room [facility] 04/28/14 2:47pm Departed Emergency Room [facility] 03/10/14 5:24pm Departed Emergency Room [facility] 02/27/14 12:25am Departed Emergency Room [facility] 02/07/14 10:36am Recent Diagnosis
--- OUTSIDE RECORDS SUMMARY | 2016-11-01 13:16 | XMS REPORT | Continuity of Care Document ---
Author Author [facility] Organization [facility] Address Unknown Phone Unavailable Support Name Relationship Address Phone SARBJIT MONTE MD Caregiver [address] [phone] PUJA DEWEY MD Caregiver [address] [place] [phone] TORO SIMMONS Next Of Kin [address] [place], [place] [phone] Insurance Providers Payer Name Policy Number Subscriber [...] F (96.8 - 99.1) Temperature (Calculated Celsius) 36.72175 degrees C (36.0 - 37.3) Pulse Rate [...] Report July 29, 2014 4:27pm REFER[facility] LAB [id number] - Lipase August 19, 2014 9:06pm 273 [...] Has specimen been collected/obtained? Y Urine Specific [place] August 19, 2014 9:42pm 1.010 L - [...] 2014 3:40pm Name: TROY AVILES Unit #: [id number] : 1985 Sex: F Loc / Svc: ED DOS: 08/28/14 Signed Report #: [id number] DIAGNOSTIC IMAGING REPORT TYPE OF EXAM: CHEST, [...] ADDON completed 06/15/14 TX/PRO/DX INJ SAME DRUG CUPOLA REPAIRER completed 06/15/14 HYDRATE IV INFUSION ADD-ON completed [...] ADDON completed 07/30/14 TX/PRO/DX INJ SAME DRUG CUPOLA REPAIRER completed 07/30/14 Encounters Encounter Location Date/Time Departed Emergency Room [facility] 08/28/14 9:36am Departed Emergency Room [facility] 08/19/14 7:04pm Departed Emergency Room [facility] 07/30/14 9:52pm Departed Emergency Room [facility] 07/23/14 11:53am Departed Emergency Room [facility] 07/15/14 3:56pm Departed Emergency Room [facility] 06/15/14 4:17pm Departed Emergency Room [facility] 06/08/14 5:33pm Recent Diagnosis
--- OUTSIDE RECORDS SUMMARY | 2016-11-01 13:16 | XMS REPORT | Continuity of Care Document ---
Author Author [facility] Organization [facility] Address Unknown Phone Unavailable Support Name Relationship Address Phone SARBJIT MONTE MD Caregiver [address] [place] [phone] JULIAN LE MD Caregiver [address] [place] [phone] TORO SIMMONS Next Of Kin [address] [place], [place] [id number] Insurance Providers Payer Name Policy Number Subscriber [...] F (96.8 - 99.1) Temperature (Calculated Celsius) 36.90690 degrees C (36.0 - 37.3) Pulse Rate [...] Has specimen been collected/obtained? Y Urine Specific [place] March 10, 2014 7:28pm >=1.030 H - [...] Report February 27, 2014 4:08am RE[facility] LAB [id number] - Anti-Nuclear Antibody (LAB) March 01, 2008 [...] ADDON completed 03/10/14 TX/PRO/DX INJ SAME DRUG ASPHALT DISTRIBUTOR OPERATOR completed 03/10/14 HYDRATE IV INFUSION ADD-ON completed 03/10/14 DRAINAGE OF SKIN ABSCESS completed 05/01/14 SHAMA LARSON DO THER/PROPH/DIAG INJ SC/IM completed 05/17/14 THER/PROPH/DIAG INJ SC/IM completed 05/17/14 Encounters Encounter Location Date/Time Registered Emergency Room [facility] 06/08/14 5:33pm Departed Emergency Room [facility] 05/17/14 11:22pm Departed Emergency Room [facility] 05/01/14 6:45pm Departed Emergency Room [facility] 04/28/14 2:47pm Departed Emergency Room [facility] 03/10/14 5:24pm Recent Diagnosis
--- OUTSIDE RECORDS SUMMARY | 2016-11-01 13:16 | XMS REPORT | Continuity of Care Document ---
Author Author [facility] Organization [facility] Address Unknown Phone Unavailable Support Name Relationship Address Phone SARBJIT MONTE MD Caregiver [address] [place] [phone] PUJA DEWEY MD Caregiver [address] [place] [phone] TORO SIMMONS Next Of Kin [address] [place], [place] [phone] Insurance Providers Payer Name Policy Number Subscriber [...] F (96.8 - 99.1) Temperature (Calculated Celsius) 36.98456 degrees C (36.0 - 37.3) Pulse Rate [...] specimen been collected/obtained? Y Urine Specific [place] June 15, 2014 5:15pm >=1.030 H - [...] Report February 27, 2014 4:08am REFER[facility] LAB [id number] - Anti-Nuclear Antibody (LAB) March 01, 2008 [...] 2014 3:40pm Name: TROY AVILES Unit #: [id number] : 1985 Sex: F Loc / Svc: ED DOS: 07/23/14 Signed Report #: [id number] DIAGNOSTIC IMAGING REPORT TYPE OF EXAM: US [...] ADDON completed 06/15/14 TX/PRO/DX INJ SAME DRUG SALES ORDER COORDINATOR completed 06/15/14 Encounters Encounter Location Date/Time Departed Emergency Room [facility] 07/23/14 11:53am Departed Emergency Room [facility] 07/15/14 3:56pm Departed Emergency Room [facility] 06/15/14 4:17pm Departed Emergency Room [facility] 06/08/14 5:33pm Departed Emergency Room [facility] 05/17/14 11:22pm Departed Emergency Room [facility] 05/01/14 6:45pm Departed Emergency Room [facility] 04/28/14 2:47pm Recent Diagnosis
--- OUTSIDE RECORDS SUMMARY | 2016-11-01 13:17 | XMS REPORT | Continuity of Care Document ---
Author Author [facility] Organization [facility] Address Unknown Phone Unavailable Support Name Relationship Address Phone SARBJIT MONTE MD Caregiver [address] [place] [phone] PUJA DEWEY MD Caregiver [address] [place] [phone] TORO SIMMONS Next Of Kin [address] [place], [place] [id number] Insurance Providers Payer Name Policy Number Subscriber [...] F (96.8 - 99.1) Temperature (Calculated Celsius) 36.46869 degrees C (36.0 - 37.3) Pulse Rate [...] Report July 29, 2014 4:27pm REFERENCE LAB [id number] - Lipase July 23, 2014 12:13pm 77 [...] Has specimen been collected/obtained? Y Urine Specific [place] July 31, 2014 12:01am >=1.030 H - [...] 2014 3:40pm Name: TROY AVILES Unit #: [id number] : 1985 Sex: F Loc / Svc: ED DOS: 07/23/14 Signed Report #: [id number] DIAGNOSTIC IMAGING REPORT TYPE OF EXAM: US [...] ADDON completed 06/15/14 TX/PRO/DX INJ SAME DRUG HAND INSERTER OPERATOR completed 06/15/14 HYDRATE IV INFUSION ADD-ON completed 07/23/14 THER/PROPH/DIAG INJ IV PUSH completed 07/23/14 TX/PRO/DX INJ NEW DRUG ADDON completed 07/23/14 TX/PRO/DX INJ NEW DRUG ADDON completed 07/23/14 TX/PRO/DX INJ NEW DRUG ADDON completed 07/23/14 TX/PRO/DX INJ NEW DRUG ADDON completed 07/23/14 TX/PRO/DX INJ NEW DRUG ADDON completed 07/23/14 Encounters Encounter Location Date/Time Registered Emergency Room [facility] 07/30/14 9:52pm Departed Emergency Room [facility] 07/23/14 11:53am Departed Emergency Room [facility] 07/15/14 3:56pm Departed Emergency Room [facility] 06/15/14 4:17pm Departed Emergency Room [facility] 06/08/14 5:33pm Departed Emergency Room [facility] 05/17/14 11:22pm Recent Diagnosis
--- OUTSIDE RECORDS SUMMARY | 2016-11-01 13:18 | XMS REPORT | Continuity of Care Document ---
Author Author [facility] Organization [facility] Address Unknown Phone Unavailable Support Name Relationship Address Phone LEVAR SEO MD Caregiver [address] [place] [address] SARBJIT MONTE MD Caregiver [address] [place] [phone] TORO SIMMONS Next Of Kin [address] [place], [place] [id number] Insurance Providers Payer Name Policy Number Subscriber [...] F (96.8 - 99.1) Temperature (Calculated Celsius) 36.02379 degrees C (36.0 - 37.3) Pulse Rate [...] 24, 2014 7:34pm 4.8 % N 0-9.0 YR-Vax-P-Type Natriuretic Peptide September 24, 2014 7:34pm 38 [...] Has specimen been collected/obtained? Y Urine Specific [place] September 19, 2014 1:07am >=1.030 H - [...] 2014 3:40pm Name: TROY AVILES Unit #: [id number] : 1985 Sex: F Loc / Svc: ED DOS: 08/28/14 Signed Report #: [id number] DIAGNOSTIC IMAGING REPORT TYPE OF EXAM: CHEST, [...] ADDON completed 07/30/14 TX/PRO/DX INJ SAME DRUG ACCOUNTING MANAGER CPA completed 07/30/14 HYDRATE IV INFUSION ADD-ON completed [...] Encounters Encounter Location Date/Time Registered Emergency Room [facility] 09/24/14 7:07pm Departed Emergency Room [facility] 09/19/14 12:32am Departed Emergency Room [facility] 08/28/14 9:36am Departed Emergency Room [facility] 08/19/14 7:04pm Departed Emergency Room [facility] 07/30/14 9:52pm Departed Emergency Room [facility] 07/23/14 11:53am Departed Emergency Room [facility] 07/15/14 3:56pm Recent Diagnosis
--- OUTSIDE RECORDS SUMMARY | 2016-11-01 13:18 | XMS REPORT | Continuity of Care Document ---
Author Author [facility] Organization [facility] Address Unknown Phone Unavailable Support Name Relationship Address Phone BEULAH LOUIS MD Caregiver [address] [place] [address] Unavailable FADY AGUIAR Next Of Kin [address] [place] [address] Insurance Providers Payer Name Policy Number Subscriber [...] F (96.8 - 99.1) Temperature (Calculated Celsius) 36.81030 degrees C (36.0 - 37.3) Pulse Rate [...] Has specimen been collected/obtained? Y Urine Specific [place] February 07, 2014 11:10am 1.020 - Has [...] 2008 11:38am Name: TROY AVILES Unit #: [id number] : 1985 Sex: F Loc / Svc: ED DOS: Signed Report #: [id number] DIAGNOSTIC IMAGING REPORT TYPE OF EXAM: KUB [...] Encounters Encounter Location Date/Time Registered Emergency Room [facility] 02/27/14 12:25am Departed Emergency Room [facility] 02/07/14 10:36am Departed Emergency Room [facility] 01/05/14 7:51pm Recent Diagnosis
--- OUTSIDE RECORDS SUMMARY | 2016-11-01 13:18 | XMS REPORT | Continuity of Care Document ---
Author Author [facility] Organization [facility] Address Unknown Phone Unavailable Support Name Relationship Address Phone BEULAH LOUIS MD Caregiver [facility] [address] [place] [place] [address] Unavailable DAXA FLOWERS II, MD Caregiver [address] [place] [address] [phone] IRENE TURCIOS Caregiver [facility] [address] [facility] [address] [place] [address] YESIKA AVILES Next Of Kin [address] [phone] Insurance Providers Payer Name Policy Number Subscriber [...] F (96.8 - 99.1) Temperature (Calculated Celsius) 36.00009 degrees C (36.0 - 37.3) Pulse Rate [...] Has specimen been collected/obtained? Y Urine Specific [place] January 05, 2014 9:50pm 1.015 - Has [...] Encounters Encounter Location Date/Time Departed Emergency Room [facility] 01/05/14 7:51pm Recent Diagnosis
--- NOTE | 2016-11-01 13:19 | ERPDOC ---
Departure Disposition Decision Date: November 01, 2016 Disposition Decision Time: 15:12 Disposition: 01 DISCHARGED HOME, SELF-CARE Impression Impression Impression: Primary Impression: Migraine equivalent Additional Impression: Dyspnea Dyspnea type: shortness of breath Qualified Codes: R06.02 - Shortness of breath Severity: Moderate Condition: Improved Seen By: Mid-level only Referrals: DAXA FLOWERS II, MD (Family) Patient Instructions: Dyspnea (ED), Migraine Headache (ED) Problems/Meds/Labs Reviewed?: Yes Medications reviewed and manag: Yes Additional Instructions: Your labs were unremarkable, except you may be a mild dehydrated. Your chest x-ray was normal. Rest in a dark room which is quite. Avoid noises or sounds that exacerbated your headache. Use your already prescribed albuterol inhaler as needed for shortness of air. If shortness of persist please follow with your PCP for re-evaluation. Follow treatment plan. Follow up care ordered?: Yes Mental Status: Alert, Oriented HPI - General Medical General Chief Complaint: Headache Stated Complaint: DIFFICULTY BREATHING Time Seen by Provider: 13:17 Source: patient HPI - General Medical Initial Comments 30-year-old female presents to ER with complaint of shortness of air. Patient states that she woke up feeling short of air this morning and used her albuterol inhaler. Said that she continue to feel short of air while at work this morning and continue to use albuterol inhaler as needed throughout morning. 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 Patient states that she feels thing these symptoms of being short of air has caused her to have a migraine headache. Reports bilateral frontal headache radiating to back of back of head. Headache consistent with her normal migraine nausea and vomiting. Took Imitrex at 1100. Patient reports that she is recovering from bronchitis. Patient is anxious and hyper ventilating when I enter room. Pain Scale: Now: 8/10 (headache) Associated Symptoms: cough, malaise, nausea/vomiting, shortness of breath, DENIES: chest pain, diaphoresis, fever/chills, loss of appetite, other (ataxia) , seizure, weakness Allergies: Coded Allergies: peanut oil (Verified Allergy, Severe, ANAPHYLACTIC REACTION, 11/01/16) tomato (Verified Allergy, Unknown, 11/01/16) ketorolac (Verified Adverse Reaction, Intermediate, ULCERS/INCREASED BLEEDING, 11/01/16) ibuprofen (Verified Adverse Reaction, Mild, BLEEDING, 11/01/16) NOSE BLEED Past History Patient Surgical History Csection BTL T&A Colonoscopy 2016 Past Medical History Metabolic: DENIES: diabetes ENMT: DENIES: allergies Cardiac: A-fib Respiratory: asthma GI: ulcerative colitis Female: DENIES: renal insufficiency Neurological: headaches, migraines Musculoskeletal: DENIES: rheumatoid arthritis Psychological: anxiety, drug abuse Surgical History General: colonoscopy, tonsils Reproductive/: , tubal ligation Joint: shoulder Family History Family PMH: FOUND: [place], cancer, diabetes, hypertension Vaccines Hx Influenza Vaccination: Yes (MAY 2016) Hx Pneumococcal Vaccination: No Hx Tetanus, Diptheria, Pertuss: Yes (2011) Social History # of Packs/Tins per Day: 0.5 Substance Use Type: does not use Alcohol Intake: none Marital Status: Single Sexuality: female partner Current Occupational Status: employed Review of Systems Constitutional Constitutional: DENIES: chills, dizziness, fever Eyes General: DENIES: erythema, exudate Lids/Accessories: DENIES: erythema, swelling ENMT Ears: DENIES: pain Sinuses: DENIES: congestion, rhinorrhea Mouth/Throat: DENIES: sore throat Cardiovascular Cardiac: DENIES: chest pain, murmur Rhythm/Rate: DENIES: palpitations Pulmonary Respiratory: cough, dyspnea GI Upper Abdomen: nausea, vomiting, DENIES: pain Lower Abdomen: DENIES: diarrhea, pain General: DENIES: dysuria, pain Musculoskeletal General: DENIES: joint pain, pain, tenderness Integumentary Skin: DENIES: color change, itching, rash Neurological General: headache, DENIES: ataxia, change in strength, numbness, paralysis/ paresis, weakness Psychiatric Psychiatric: DENIES: anxiety, depression, nervousness Physical Exam General General Nourishment: well nourished, well developed, adult General Body Habitus: disheveled Vitals and Pain First Documented Vital Signs Date Time Temp Pulse Resp B/P Pulse Ox O2 Delivery O2 Flow Rate FiO2 11/01/16 13:10 97.6 110 20 131/79 98 Room Air Weight: Kilograms: Height (feet): 5 Height (inches): 7.00 Triage Pain Scale: Eyes (brief) Eyes Brief: found: EOMI, PERRL Eyes Abnormal Movement: NOT FOUND: nystagmus ENMT (brief) ENMT Brief: FOUND: TM clear, TM good light reflex, mucosa moist, NOT FOUND: nasal exudate, nasal swelling, pharnyx erythema Neck (brief) Neck: FOUND: trachea midline, NOT FOUND: adenopathy, tenderness, thyromegaly Respiratory Inspection: NOT FOUND: tachypnea Auscultation: FOUND: wheezes (occasional intermittent bilateral upper lobe expiratory wheezes) Cardiovascular Auscultation: FOUND: S1, S2, rate (98), regular Abdomen (brief) Abdominal Brief: FOUND: bowel normo active x4, soft, NOT FOUND: tender Musculoskeletal (brief) Musculoskeletal Brief: NOT FOUND: deformity, loss of motion Integumentary (brief) Integumentary Brief: FOUND: dry, pink, warm Neurologic (brief) Neurological Brief: FOUND: CN w/o gross def to obs Neurologic Mental Status: FOUND: alert, oriented (x3) Cranial Nerves: NOT FOUND: facial asymmetry Motor : Motor Side: bilateral Motor Location: foot extension, foot flexion, box stamper strength Sensation: FOUND: soft touch intact x4 ext Cerebellar: FOUND: tandem walk DTR's : DTR Side: bilateral DTR Location: Triceps, Patellar DTR Grade: 2+ Psychiatric (brief) Psychiatric Brief: NOT FOUND: normal affect (anxious) Differential Diagnoses Considering: Acute Bronchitis, Asthma Exacerbation, Pneumonia, Viral Syndrome, Other (Anxiety) Progress Results/Orders Orders Procedure Category Date Status Time Cmp - Comprehensive LAB 11/01/16 Complete Metabolic 13:26 Cbc W/Auto LAB 11/01/16 Complete Diff-Reflex Manual 13:26 D-Dimer LAB 11/01/16 Complete 13:26 Troponin I W LAB 11/01/16 Complete Hemolysis Index 13:26 Chest, Pa & Lateral RAD 11/01/16 Resulted 13:26 Iv Lock (Ed Only) EDM 11/01/16 Transmitted 13:26 Normal Saline (Normal PHA 11/01/16 Complete Saline Iv) 13:26 Oxygen Administration EDM 11/01/16 Transmitted 13:26 Prochlorperazine PHA 11/01/16 Complete (Compazine) 13:30 Levalbuterol (Xopenex PHA 11/01/16 Complete 1.25mg/3ml) 13:30 Hydromorphone PHA 11/01/16 Complete (Dilaudid) 13:30 Normal Saline (Normal PHA 11/01/16 Complete Saline Iv) 14:45 Orphenadrine (Norflex) PHA 11/01/16 Complete 14:45 Lab Results Laboratory Tests Test 11/01/16 13:47 White Blood Count 8.6T/MM3 Red Blood Count 4.71M/MM3 Hemoglobin 13.7GM/DL Hematocrit 40.8% Mean Corpuscular Volume 86.6UM3 Mean Corpuscular Hemoglobin 29.1UUG Mean Corpuscular Hemoglobin Concent 33.6GM/DL RDW Standard Deviation 43.3FL Platelet Count 319T/MM3 Mean Platelet Volume 9.7UM3 Immature Granulocyte % (Auto) 0.1% Neutrophils (%) (Auto) 62.3% Lymphocytes (%) (Auto) 30.9% Monocytes (%) (Auto) 5.0% Eosinophils (%) (Auto) 1.2% Basophils (%) (Auto) 0.5% Absolute Immature Granulocyte (auto 0.01T/MM3 Absolute Neutrophils (auto) 5.4T/MM3 Absolute Lymphocytes (auto) 2.7T/MM3 Absolute Monocytes (auto) 0.4T/MM3 Absolute Eosinophils (auto) 0.1T/MM3 Absolute Basophils (auto) 0.0T/MM3 D-Dimer < 150NG/ML Turbidity < 20 Sodium Level 139MEQ/L Potassium Level 4.0MEQ/L Chloride Level 104MEQ/L Carbon Dioxide Level 19MEQ/L Anion Gap 16MEQ/L Blood Urea Nitrogen 13.0MG/DL Creatinine 1.0MG/DL Glomerular Filtration Rate Calc 64 BUN/Creatinine Ratio 13RATIO Glucose Level 91MG/DL Calculated Osmolality 268MOSM/KG Calcium Level 10.4MG/DL Total Bilirubin 0.80MG/DL Icterus Index < 2 Aspartate Amino Transf (AST/SGOT) 19U/L Alanine Aminotransferase (ALT/SGPT) 36U/L Alkaline Phosphatase 83U/L Troponin I < 0.012ng/ml Total Protein 8.2G/DL Albumin 5.0G/DL Globulin 3.2G/DL Albumin/Globulin Ratio 1.6RATIO Chemistry Specimen Hemolysis < 15 Medications Current ED Medications Sodium Chloride (Normal Saline IV) 1,000 ml @ 0 mls/hr Q0M ONCE IV Last administered on 11/01/16 13:51; Start 11/01/16 at 13:26; Stop 11/01/16 at 13:30; Status DC Prochlorperazine Edisylate (Compazine) 10 mg O ONCE IV Last administered on 13:52; Start 11/01/16 at 13:30; Stop 11/01/16 at 13:31; Status DC Levalbuterol HCl (XOPENEX 1.25mg/ 3ml) 1.25 mg O ONCE AEROSOL Last administered on 11/01/16 13:36; Start 11/01/16 at 13:30; Stop 11/01/16 at 13:31; Status DC Hydromorphone HCl 1 mg 1 mg O ONCE IV Last administered on 11/01/16 13:55; Start 11/01/16 at 13:30; Stop 11/01/16 at 13:31; Status DC Sodium Chloride (Normal Saline IV) 1,000 ml @ 0 mls/hr Q0M ONCE IV ; Start 11/01 at 14:45; Stop 11/01/16 at 14:46; Status DC Orphenadrine Citrate (Norflex) 60 mg O ONCE IV Last administered on 11/01/16 14:49; Start 11/01/16 at 14:45; Stop 11/01/16 at 14:46; Status DC Progress Progress CBC unremarkable CMP unremarkable except for CO2 is 19 and anion gap 16 Troponin <1.012 D-dimer < 150 Patient reports she feels like she is breathing better after Xopenex. Patient doesn't report any improvement of her headache after Dilaudid and Compazine. VS improving I discussed labs and CXR with patient and that she appears to be dry. Patient reports that norflex has improved headache from a 8/10 to 4/10. Patient request to go home, stating she is feeling much better.. Patient declines additional liter of fluid. Patient verbalized understanding of treatment plan, follow up with PCP and return precautions. Xray Xray : Xray: CXR PA/Lat (no acute cardiopulmonary findings) Interpretation: Reviewed Written Report MELISSA BELLO APRN November 01, 2016 13:19
--- NOTE | 2016-11-01 13:25 | NUR ---
PROVIDER Ed BELLO APRN AT BEDSIDE FOR EXAM.
[2016-11-01] MEDS ORDERED: NORMAL SALINE 1,000 ML IV ONE ×2 (13:26→14:45)
--- OUTSIDE RECORDS SUMMARY | 2016-11-01 13:29 | XMS REPORT ---
Author Author [place], Via [facility] - Organization Unknown Address Unknown [...] (5.0-8.0 ) Protein Negative (Negative ) Specific [place] 1.015 (1.003-1.030 ) Collection Type: Clean Catch Urobilinogen Negative mg/dL (-<1.0 mg/dL) Bacteria Rare Epithelial Cells 5-10 /HPF Mucus Present RBC 0-2 /HPF (0-2 /HPF) WBC 2-5 /HPF (0-4 /HPF)
[2016-11-01] MEDS ORDERED: LEVALBUTEROL INH.SOLN. 1.25mg/3ml Neb. AEROSOL ONE (13:30)
[2016-11-01] MEDS ORDERED: HYDROMORPHONE 2mg/ml INJECTION IV ONE (13:30)
[2016-11-01] MEDS ORDERED: PROCHLORPERAZINE 10mg/2ml INJECTION IV ONE (13:30)
--- OUTSIDE RECORDS SUMMARY | 2016-11-01 13:30 | XMS REPORT | Continuity of Care Document ---
Author Author [facility] Organization [facility] Address Unknown Phone Unavailable Support Name Relationship Address Phone IRENE TURCIOS Caregiver [facility] [address] [facility] [address] [place] [address] JULIAN LE MD Caregiver [address] [place] [address] [place] [phone] FADY AGUIAR Next Of Kin [address] [place] [address] Insurance Providers Payer Name Policy [...] F (96.8 - 99.1) Temperature (Calculated Celsius) 36.90540 degrees C (36.0 - 37.3) Pulse Rate [...] Has specimen been collected/obtained? Y Urine Specific [place] March 10, 2014 7:28pm >=1.030 H - [...] Report February 27, 2014 4:08am REFERENCE LAB [id number] - Anti-Nuclear Antibody (LAB) March 01, 2008 [...] 2008 11:38am Name: TROY AVILES Unit #: [id number] : 1985 Sex: F Loc / Svc: ED DOS: Signed Report #: [id number] DIAGNOSTIC IMAGING REPORT TYPE OF EXAM: KUB [...] ADDON completed 02/27/14 TX/PRO/DX INJ SAME DRUG MANAGER COMMISSION completed 02/27/14 HYDRATE IV INFUSION ADD-ON completed 02/27/14 Encounters Encounter Location Date/Time Departed Emergency Room [facility] 03/10/14 5:24pm Departed Emergency Room [facility] 02/27/14 12:25am Departed Emergency Room [facility] 02/07/14 10:36am Departed Emergency Room [facility] 01/05/14 7:51pm Recent Diagnosis
--- OUTSIDE RECORDS SUMMARY | 2016-11-01 13:30 | XMS REPORT | Continuity of Care Document ---
Author Author [facility] Organization [facility] Address Unknown Phone Unavailable Support Name Relationship Address Phone BEULAH LOUIS MD Caregiver [facility] [address] [place] [address] Unavailable SARBJIT MONTE MD Caregiver [address] [place] [phone] TORO SIMMONS Next Of Kin [address] [place] [address] Insurance Providers Payer Name Policy Number Subscriber [...] F (96.8 - 99.1) Temperature (Calculated Celsius) 36.13444 degrees C (36.0 - 37.3) Pulse Rate [...] Has specimen been collected/obtained? Y Urine Specific [place] September 19, 2014 1:07am >=1.030 H - [...] 3:40pm Name: AVILESROSA ELENATROY A Unit #: [id number] : 1985 Sex: F Loc / Svc: ED DOS: 08/28/14 Signed Report #: [id number] DIAGNOSTIC IMAGING REPORT TYPE OF EXAM: CHEST, [...] ADDON completed 07/30/14 TX/PRO/DX INJ SAME DRUG RISK ASSESSOR completed 07/30/14 HYDRATE IV INFUSION ADD-ON completed [...] Encounters Encounter Location Date/Time Departed Emergency Room [facility] 09/19/14 12:32am Departed Emergency Room [facility] 08/28/14 9:36am Departed Emergency Room [facility] 08/19/14 7:04pm Departed Emergency Room [facility] 07/30/14 9:52pm Departed Emergency Room [facility] 07/23/14 11:53am Departed Emergency Room [facility] 07/15/14 3:56pm Recent Diagnosis
--- OUTSIDE RECORDS SUMMARY | 2016-11-01 13:30 | XMS REPORT | Continuity of Care Document ---
Author Author [facility] Organization [facility] Address Unknown Phone Unavailable Support Name Relationship Address Phone LONNY SEO MD Caregiver [address] [place] [phone] SARBJIT MONTE MD Caregiver [address] [place], [place] [phone] DEBRAFADY BAUTISTA Next Of Kin [address] [place], [place] [id number] Insurance Providers Payer Name Policy Number Subscriber [...] F (96.8 - 99.1) Temperature (Calculated Celsius) 36.47528 degrees C (36.0 - 37.3) Pulse Rate [...] Has specimen been collected/obtained? Y Urine Specific [place] March 10, 2014 7:28pm >=1.030 H - [...] Report February 27, 2014 4:08am REFERENCE LAB [id number] - Anti-Nuclear Antibody (LAB) March 01, 2008 [...] 2008 11:38am Name: TROY AVILES Unit #: [id number] : 1985 Sex: F Loc / Svc: ED DOS: Signed Report #: [id number] DIAGNOSTIC IMAGING REPORT TYPE OF EXAM: KUB [...] ADDON completed 02/27/14 TX/PRO/DX INJ SAME DRUG EMPLOYMENT PROGRAM REPRESENTATIVE completed 02/27/14 HYDRATE IV INFUSION ADD-ON completed 02/27/14 THER/PROPH/DIAG INJ IV PUSH completed 03/10/14 TX/PRO/DX INJ NEW DRUG ADDON completed 03/10/14 TX/PRO/DX INJ SAME DRUG EMPLOYMENT PROGRAM REPRESENTATIVE completed 03/10/14 HYDRATE IV INFUSION ADD-ON completed 03/10/14 Encounters Encounter Location Date/Time Departed Emergency Room [facility] 04/28/14 2:47pm Departed Emergency Room [facility] 03/10/14 5:24pm Departed Emergency Room [facility] 02/27/14 12:25am Departed Emergency Room [facility] 02/07/14 10:36am Recent Diagnosis
--- OUTSIDE RECORDS SUMMARY | 2016-11-01 13:30 | XMS REPORT ---
Author Author [place], Via [facility] - Organization Unknown Address Unknown Phone Unavailable [...] the responsibility of the patient or patient financial foundations representative to confirm the list of medications [...] Clean Catch Received : 02/03/13 21:31 Order#: [id number] Urine Culture FINAL 02/05/13 09:14 Mixed frank indicative of vaginal and/or skin contamination MARIA FOR RESULTS: * - NEW RESULT - RESULT WAS MODIFIED AFTER FINAL STATUS SET LAB--MICROBIOLOGY from 02/04/2013 1:50 PMOva And Parasite Exam Source: Stool Collected: 02/04/13 13:50 Site: Received : 02/04/13 14:00 Order#: [id number] Ova and Parasite Exam FINAL 02/05/13 11:34 S White blood cells present No ova or parasites observed . Specimen examined by formalin concentration procedure and trichrome-stained smear. S: Performed at:[place], [place] CLIA#[id number] MARIA FOR RESULTS: * - NEW RESULT - RESULT WAS MODIFIED AFTER FINAL STATUS SET C. difficile Toxin B Source: Stool Collected: 11/12 13:50 Site: Received : 02/04/13 14:01 Order#: [id number] C. difficile toxin B by PCR FINAL 02/04/13 21:08 Negative - C. difficile toxin B not detected by PCR MARIA FOR RESULTS: * - NEW RESULT - RESULT WAS MODIFIED AFTER FINAL STATUS SET Fecal Leucocyte Stain (Stool WBC) A Source: Stool Collected: 02/04/13 13:50 Site: Received : 02/04/13 14:01 Order#: [id number] Fecal Leucocyte Stain FINAL 02/04/13 14:12 Many white blood cells present MARIA FOR RESULTS: * - NEW RESULT - RESULT WAS MODIFIED AFTER FINAL STATUS SET LAB--MICROBIOLOGY from 02/04/2013 8:45 PMStool Culture and Shiga Toxin Test Source: Stool Collected: 02/04/13 20:45 Site: Received : 02/04/13 20:54 Order#: [id number] Shiga toxin test FINAL 02/06/13 08:11 Unable [...] Protein Pos 1+ A (Negative ) Specific [place] 1.015 (1.003-1.030 ) Collection Type: Clean Catch Urobilinogen Negative mg/dL (-<1.0 mg/dL) Bacteria Occasional A Epithelial Cells 5-10 /HPF Mucus Present RBC >50 /HPF A (0-2 /HPF) WBC 0-2 /HPF (0-4 /HPF)
--- OUTSIDE RECORDS SUMMARY | 2016-11-01 13:30 | XMS REPORT ---
Author Author [facility], [facility] - Organization Unknown Address Unknown Phone Unavailable [...] (5.0-8.0 ) Protein Negative (Negative ) Specific [place] 1.009 (1.003-1.030 ) Collection Type: Clean Catch Urobilinogen Negative mg/dL (-<1.0 mg/dL) Bacteria Occasional A Epithelial Cells 2-5 /HPF Mucus Present RBC 0-2 /HPF (0-2 /HPF) WBC 2-5 /HPF (0-4 /HPF)
--- OUTSIDE RECORDS SUMMARY | 2016-11-01 13:31 | XMS REPORT | Continuity of Care Document ---
Author Author [facility] Organization [facility] Address Unknown Phone Unavailable Support Name Relationship Address Phone SARBJIT MONTE MD Caregiver [address] [place] [phone] PUJA DEWEY MD Caregiver [address] [place] [phone] [facility] FADY Next Of Kin [address] [place] [address] Insurance Providers Payer Name Policy [...] F (96.8 - 99.1) Temperature (Calculated Celsius) 35.66450 degrees C (36.0 - 37.3) Pulse Rate [...] Has specimen been collected/obtained? Y Urine Specific [place] March 10, 2014 7:28pm >=1.030 H - [...] Report February 27, 2014 4:08am REFERENCE LAB [id number] - Anti-Nuclear Antibody (LAB) March 01, 2008 [...] ADDON completed 02/27/14 TX/PRO/DX INJ SAME DRUG SANITATION TRUCK DRIVER completed 02/27/14 HYDRATE IV INFUSION ADD-ON completed 02/27/14 THER/PROPH/DIAG INJ IV PUSH completed 03/10/14 TX/PRO/DX INJ NEW DRUG ADDON completed 03/10/14 TX/PRO/DX INJ SAME DRUG SANITATION TRUCK DRIVER completed 03/10/14 HYDRATE IV INFUSION ADD-ON completed 03/10/14 DRAINAGE OF SKIN ABSCESS completed 05/01/14 SHAMA LARSON DO Encounters Encounter Location Date/Time Departed Emergency Room [facility] 05/17/14 11:22pm Departed Emergency Room [facility] 05/01/14 6:45pm Departed Emergency Room [facility] 04/28/14 2:47pm Departed Emergency Room [facility] 03/10/14 5:24pm Departed Emergency Room [facility] 02/27/14 12:25am Recent Diagnosis
--- OUTSIDE RECORDS SUMMARY | 2016-11-01 13:31 | XMS REPORT | Continuity of Care Document ---
Author Author [facility] Organization [facility] Address Unknown Phone Unavailable Support Name Relationship Address Phone JULIAN LE MD [address] [place] [phone] YESIKA AVILES Next Of Kin [address] [place] [address] Insurance Providers Payer Name Policy Number Subscriber [...] F (96.8 - 99.1) Temperature (Calculated Celsius) 36.82843 degrees C (36.0 - 37.3) Pulse Rate [...] Has specimen been collected/obtained? Y Urine Specific [place] February 07, 2014 11:10am 1.020 - Has [...] 2008 11:38am Name: TROY AVILES Unit #: [id number] : 1985 Sex: F Loc / Svc: ED DOS: Signed Report #: [id number] DIAGNOSTIC IMAGING REPORT TYPE OF EXAM: KUB [...] Encounters Encounter Location Date/Time Registered Emergency Room [facility] 02/07/14 10:36am Departed Emergency Room [facility] 01/05/14 7:51pm Recent Diagnosis
--- OUTSIDE RECORDS SUMMARY | 2016-11-01 13:31 | XMS REPORT | Continuity of Care Document ---
Author Author [facility] Organization [facility] Address Unknown Phone Unavailable Support Name Relationship Address Phone BEULAH LOUIS MD Caregiver [facility] [address] [place] [address] Unavailable SARBJIT MONTE MD Caregiver [address] [place] [address] [phone] TORO SIMMONS Next Of Kin [address] [place] [address] Insurance Providers Payer Name Policy Number Subscriber [...] F (96.8 - 99.1) Temperature (Calculated Celsius) 36.89722 degrees C (36.0 - 37.3) Pulse Rate [...] Report July 29, 2014 4:27pm REFERENCE LAB [id number] - Lipase August 19, 2014 9:06pm 273 [...] Has specimen been collected/obtained? Y Urine Specific [place] August 19, 2014 9:42pm 1.010 L - [...] 2014 3:40pm Name: TROY AVILES Unit #: [id number] : 1985 Sex: F Loc / Svc: ED DOS: 07/30/14 Signed Report #: [id number] DIAGNOSTIC IMAGING REPORT TYPE OF EXAM: CHEST [...] ADDON completed 06/15/14 TX/PRO/DX INJ SAME DRUG EXHIBIT ARTIST completed 06/15/14 HYDRATE IV INFUSION ADD-ON completed [...] ADDON completed 07/30/14 TX/PRO/DX INJ SAME DRUG EXHIBIT ARTIST completed 07/30/14 Encounters Encounter Location Date/Time Departed Emergency Room [facility] 08/19/14 7:04pm Departed Emergency Room [facility] 07/30/14 9:52pm Departed Emergency Room [facility] 07/23/14 11:53am Departed Emergency Room [facility] 07/15/14 3:56pm Departed Emergency Room [facility] 06/15/14 4:17pm Departed Emergency Room [facility] 06/08/14 5:33pm Recent Diagnosis
--- OUTSIDE RECORDS SUMMARY | 2016-11-01 13:32 | XMS REPORT | Continuity of Care Document ---
Author Author [facility] Organization [facility] Address Unknown Phone Unavailable Support Name Relationship Address Phone NEO, SHAMA Caregiver [facility] [address] [place] [phone] SARBJIT MONTE MD Caregiver [address] [place] [address] [phone] TORO SIMMONS Next Of Kin [address] [place] [address] Insurance Providers Payer Name Policy Number Subscriber [...] F (96.8 - 99.1) Temperature (Calculated Celsius) 36.78490 degrees C (36.0 - 37.3) Pulse Rate [...] Has specimen been collected/obtained? Y Urine Specific [place] June 15, 2014 5:15pm >=1.030 H - [...] Report February 27, 2014 4:08am REFERENCE LAB [id number] - Anti-Nuclear Antibody (LAB) March 01, 2008 [...] 2014 3:40pm Name: TROY AVILES Unit #: [id number] : 1985 Sex: F [place] [facility] [place] DOS: 06/15/14 Signed Report #: [id number] DIAGNOSTIC IMAGING REPORT TYPE OF EXAM: CT [...] ADDON completed 06/15/14 TX/PRO/DX INJ SAME DRUG WIRE TWISTER completed 06/15/14 Encounters Encounter Location Date/Time Departed Emergency Room [facility] 07/15/14 3:56pm Departed Emergency Room [facility] 06/15/14 4:17pm Departed Emergency Room [facility] 06/08/14 5:33pm Departed Emergency Room [facility] 05/17/14 11:22pm Departed Emergency Room [facility] 05/01/14 6:45pm Departed Emergency Room [facility] 04/28/14 2:47pm Recent Diagnosis
--- OUTSIDE RECORDS SUMMARY | 2016-11-01 13:32 | XMS REPORT | Continuity of Care Document ---
Author Author [facility] Organization [facility] Address Unknown Phone Unavailable Support Name Relationship Address Phone LEVAR SEO MD Caregiver [address] [place] [address] SARBJIT MONTE MD Caregiver [address] [place] [phone] TORO SIMMONS Next Of Kin [address] [place], [place] [id number] Insurance Providers Payer Name Policy Number Subscriber [...] F (96.8 - 99.1) Temperature (Calculated Celsius) 36.30751 degrees C (36.0 - 37.3) Pulse Rate [...] Has specimen been collected/obtained? Y Urine Specific [place] June 15, 2014 5:15pm >=1.030 H - [...] Report February 27, 2014 4:08am REFERENCE LAB [id number] - Anti-Nuclear Antibody (LAB) March 01, 2008 [...] Encounters Encounter Location Date/Time Departed Emergency Room [facility] 06/15/14 4:17pm Departed Emergency Room [facility] 06/08/14 5:33pm Departed Emergency Room [facility] 05/17/14 11:22pm Departed Emergency Room [facility] 05/01/14 6:45pm Departed Emergency Room [facility] 04/28/14 2:47pm Recent Diagnosis
--- OUTSIDE RECORDS SUMMARY | 2016-11-01 13:32 | XMS REPORT | Continuity of Care Document ---
Author Author [facility] Organization [facility] Address Unknown Phone Unavailable Support Name Relationship Address Phone NEOSHAMA BAGLEY Caregiver [facility] [address] [place], [place] [id number] SARBJIT MONTE MD Caregiver [address] [place], [place] [phone] DEBRADAVIDE BAUTISTAAE Next Of Kin [address] [place] [address] Insurance Providers Payer Name Policy Number Subscriber [...] F (96.8 - 99.1) Temperature (Calculated Celsius) 36.60870 degrees C (36.0 - 37.3) Pulse Rate [...] Has specimen been collected/obtained? Y Urine Specific [place] March 10, 2014 7:28pm >=1.030 H - [...] Report February 27, 2014 4:08am REFERENCE LAB [id number] - Anti-Nuclear Antibody (LAB) March 01, 2008 [...] 2014 3:40pm Name: TROY AVILES Unit #: [id number] : 1985 Sex: F Loc / Svc: ED DOS: Signed Report #: [id number] DIAGNOSTIC IMAGING REPORT TYPE OF EXAM: KUB [...] ADDON completed 02/27/14 TX/PRO/DX INJ SAME DRUG RETAIL PRICING COORDINATOR completed 02/27/14 HYDRATE IV INFUSION ADD-ON completed 02/27/14 THER/PROPH/DIAG INJ IV PUSH completed 03/10/14 TX/PRO/DX INJ NEW DRUG ADDON completed 03/10/14 TX/PRO/DX INJ SAME DRUG RETAIL PRICING COORDINATOR completed 03/10/14 HYDRATE IV INFUSION ADD-ON completed 03/10/14 Encounters Encounter Location Date/Time Departed Emergency Room [facility] 05/01/14 6:45pm Departed Emergency Room [facility] 04/28/14 2:47pm Departed Emergency Room [facility] 03/10/14 5:24pm Departed Emergency Room [facility] 02/27/14 12:25am Departed Emergency Room [facility] 02/07/14 10:36am Recent Diagnosis
--- OUTSIDE RECORDS SUMMARY | 2016-11-01 13:32 | XMS REPORT ---
Author Author [place], [facility] - Organization Unknown Address Unknown Phone [...] (5.0-8.0 ) Protein Negative (Negative ) Specific [place] 1.016 (1.003-1.030 ) Collection Type: Clean Catch Urobilinogen Negative mg/dL (-<1.0 mg/dL)
--- OUTSIDE RECORDS SUMMARY | 2016-11-01 13:34 | XMS REPORT | Continuity of Care Document ---
Author Author [facility] Organization [facility] Address Unknown Phone Unavailable Support Name Relationship Address Phone SARBJIT MONTE MD Caregiver [address] [place] [phone] JULIAN LE MD Caregiver [address] [place] [phone] TORO SIMMONS Next Of Kin [address] [place], [place] [id number] Insurance Providers Payer Name Policy Number Subscriber [...] F (96.8 - 99.1) Temperature (Calculated Celsius) 36.87257 degrees C (36.0 - 37.3) Pulse Rate [...] Has specimen been collected/obtained? Y Urine Specific [place] March 10, 2014 7:28pm >=1.030 H - [...] Report February 27, 2014 4:08am REFERENCE LAB [id number] - Anti-Nuclear Antibody (LAB) March 01, 2008 [...] ADDON completed 03/10/14 TX/PRO/DX INJ SAME DRUG MASTER AUTOMOTIVE TECHNICIAN completed 03/10/14 HYDRATE IV INFUSION ADD-ON completed 03/10/14 DRAINAGE OF SKIN ABSCESS completed 05/01/14 SHAMA LARSON DO THER/PROPH/DIAG INJ SC/IM completed 05/17/14 THER/PROPH/DIAG INJ SC/IM completed 05/17/14 Encounters Encounter Location Date/Time Registered Emergency Room [facility] 06/08/14 5:33pm Departed Emergency Room [facility] 05/17/14 11:22pm Departed Emergency Room [facility] 05/01/14 6:45pm Departed Emergency Room [facility] 04/28/14 2:47pm Departed Emergency Room [facility] 03/10/14 5:24pm Recent Diagnosis
--- OUTSIDE RECORDS SUMMARY | 2016-11-01 13:35 | XMS REPORT | Continuity of Care Document ---
Author Author [facility] Organization [facility] Address Unknown Phone Unavailable Support Name Relationship Address Phone SARBJIT MONTE MD Caregiver [address] [place] [phone] PUJA DEWEY MD Caregiver [address] [place] [place] [phone] TORO SIMMONS Next Of Kin [address] [place], [place] [id number] Insurance Providers Payer Name Policy Number Subscriber [...] F (96.8 - 99.1) Temperature (Calculated Celsius) 36.36750 degrees C (36.0 - 37.3) Pulse Rate [...] Report July 29, 2014 4:27pm REFERENCE LAB [id number] - Lipase July 23, 2014 12:13pm 77 [...] Has specimen been collected/obtained? Y Urine Specific [place] July 31, 2014 12:01am >=1.030 H - [...] 2014 3:40pm Name: TROY AVILES Unit #: [id number] : 1985 Sex: F Loc / Svc: ED DOS: 07/23/14 Signed Report #: [id number] DIAGNOSTIC IMAGING REPORT TYPE OF EXAM: US [...] ADDON completed 06/15/14 TX/PRO/DX INJ SAME DRUG CUSTOMER ACCOUNT MANAGER completed 06/15/14 HYDRATE IV INFUSION ADD-ON completed 07/23/14 THER/PROPH/DIAG INJ IV PUSH completed 07/23/14 TX/PRO/DX INJ NEW DRUG ADDON completed 07/23/14 TX/PRO/DX INJ NEW DRUG ADDON completed 07/23/14 TX/PRO/DX INJ NEW DRUG ADDON completed 07/23/14 TX/PRO/DX INJ NEW DRUG ADDON completed 07/23/14 TX/PRO/DX INJ NEW DRUG ADDON completed 07/23/14 Encounters Encounter Location Date/Time Registered Emergency Room [facility] 07/30/14 9:52pm Departed Emergency Room [facility] 07/23/14 11:53am Departed Emergency Room [facility] 07/15/14 3:56pm Departed Emergency Room [facility] 06/15/14 4:17pm Departed Emergency Room [facility] 06/08/14 5:33pm Departed Emergency Room [facility] 05/17/14 11:22pm Recent Diagnosis
--- OUTSIDE RECORDS SUMMARY | 2016-11-01 13:35 | XMS REPORT | Continuity of Care Document ---
Author Author [facility] Organization [facility] Address Unknown Phone Unavailable Support Name Relationship Address Phone SARBJIT MONTE MD Caregiver [address] [facility] [place] [phone] PUJA DEWEY MD Caregiver [address] [facility] [place] [phone] TORO SIMMONS Next Of Kin [address] [place], [place] [id number] Insurance Providers Payer Name Policy Number Subscriber [...] F (96.8 - 99.1) Temperature (Calculated Celsius) 36.84671 degrees C (36.0 - 37.3) Pulse Rate [...] Report July 29, 2014 4:27pm REFERENCE LAB [id number] - Lipase August 19, 2014 9:06pm 273 [...] Has specimen been collected/obtained? Y Urine Specific [place] August 19, 2014 9:42pm 1.010 L - [...] 2014 3:40pm Name: TROY AVILES Unit #: [id number] : 1985 Sex: F Loc / Svc: ED DOS: 08/28/14 Signed Report #: [id number] DIAGNOSTIC IMAGING REPORT TYPE OF EXAM: CHEST, [...] ADDON completed 06/15/14 TX/PRO/DX INJ SAME DRUG DIE EQUIPMENT OPERATOR completed 06/15/14 HYDRATE IV INFUSION ADD-ON [...] ADDON completed 07/30/14 TX/PRO/DX INJ SAME DRUG DIE EQUIPMENT OPERATOR completed 07/30/14 Encounters Encounter Location Date/Time Departed Emergency Room [facility] 08/28/14 9:36am Departed Emergency Room [facility] 08/19/14 7:04pm Departed Emergency Room [facility] 07/30/14 9:52pm Departed Emergency Room [facility] 07/23/14 11:53am Departed Emergency Room [facility] 07/15/14 3:56pm Departed Emergency Room [facility] 06/15/14 4:17pm Departed Emergency Room [facility] 06/08/14 5:33pm Recent Diagnosis
--- OUTSIDE RECORDS SUMMARY | 2016-11-01 13:35 | XMS REPORT | Continuity of Care Document ---
Author Author [facility] Organization [facility] Address Unknown Phone Unavailable Support Name Relationship Address Phone SARBJIT MONTE MD Caregiver [address] [place] [phone] PUJA DEWEY MD Caregiver [address] [facility] [phone] TORO SIMMONS Next Of Kin [address] [place] [place], [place] [id number] Insurance Providers Payer Name Policy Number Subscriber [...] F (96.8 - 99.1) Temperature (Calculated Celsius) 36.13942 degrees C (36.0 - 37.3) Pulse Rate [...] Has specimen been collected/obtained? Y Urine Specific [place] June 15, 2014 5:15pm >=1.030 H - [...] Report February 27, 2014 4:08am REFERENCE LAB [id number] - Anti-Nuclear Antibody (LAB) March 01, 2008 [...] 2014 3:40pm Name: TROY AVILES Unit #: [id number] : 1985 Sex: F Loc / Svc: ED DOS: 07/23/14 Signed Report #: [id number] DIAGNOSTIC IMAGING REPORT TYPE OF EXAM: US [...] ADDON completed 06/15/14 TX/PRO/DX INJ SAME DRUG VASCULAR TECHNOLOGIST SONOGRAPHER completed 06/15/14 Encounters Encounter Location Date/Time Departed Emergency Room [facility] 07/23/14 11:53am Departed Emergency Room [facility] 07/15/14 3:56pm Departed Emergency Room [facility] 06/15/14 4:17pm Departed Emergency Room [facility] 06/08/14 5:33pm Departed Emergency Room [facility] 05/17/14 11:22pm Departed Emergency Room [facility] 05/01/14 6:45pm Departed Emergency Room [facility] 04/28/14 2:47pm Recent Diagnosis
--- OUTSIDE RECORDS SUMMARY | 2016-11-01 13:36 | XMS REPORT | Continuity of Care Document ---
Author Author [facility] Organization [facility] Address Unknown Phone Unavailable Support Name Relationship Address Phone LEVAR SEO MD Caregiver [address] [place] [address] SARBJIT MONTE MD Caregiver [address] [place] [phone] TORO SIMMONS Next Of Kin [address] [place], [place] [id number] Insurance Providers Payer Name Policy Number Subscriber [...] F (96.8 - 99.1) Temperature (Calculated Celsius) 36.35516 degrees C (36.0 - 37.3) Pulse Rate [...] 24, 2014 7:34pm 4.8 % N 0-9.0 [id number] Natriuretic Peptide September 24, 2014 7:34pm 38 [...] Has specimen been collected/obtained? Y Urine Specific [place] September 19, 2014 1:07am >=1.030 H - [...] 2014 3:40pm Name: TROY AVILES Unit #: [id number] : 1985 Sex: F Loc / Svc: ED DOS: 08/28/14 Signed Report #: [id number] DIAGNOSTIC IMAGING REPORT TYPE OF EXAM: CHEST, [...] ADDON completed 07/30/14 TX/PRO/DX INJ SAME DRUG PALS SPECIALIST completed 07/30/14 HYDRATE IV INFUSION ADD-ON completed [...] Encounters Encounter Location Date/Time Registered Emergency Room [facility] 09/24/14 7:07pm Departed Emergency Room [facility] 09/19/14 12:32am Departed Emergency Room [facility] 08/28/14 9:36am Departed Emergency Room [facility] 08/19/14 7:04pm Departed Emergency Room [facility] 07/30/14 9:52pm Departed Emergency Room [facility] 07/23/14 11:53am Departed Emergency Room [facility] 07/15/14 3:56pm Recent Diagnosis
--- OUTSIDE RECORDS SUMMARY | 2016-11-01 13:36 | XMS REPORT | Continuity of Care Document ---
Author Author [facility] Organization [facility] Address Unknown Phone Unavailable Support Name Relationship Address Phone BEULAH LOUIS MD Caregiver [address] [place] [address] Unavailable FADY AGUIAR Next Of Kin [address] [place] [address] Insurance Providers Payer Name Policy Number Subscriber [...] F (96.8 - 99.1) Temperature (Calculated Celsius) 36.54613 degrees C (36.0 - 37.3) Pulse Rate [...] Has specimen been collected/obtained? Y Urine Specific [place] February 07, 2014 11:10am 1.020 - Has [...] 2008 11:38am Name: TROY AVILES Unit #: [id number] : 1985 Sex: F Loc / Svc: ED DOS: Signed Report #: [id number] DIAGNOSTIC IMAGING REPORT TYPE OF EXAM: KUB [...] Emergency Room [facility] 02/27/14 12:25am Departed Emergency Room [facility] 02/07/14 10:36am Departed Emergency Room [facility] 01/05/14 7:51pm Recent Diagnosis
--- NOTE | 2016-11-01 13:37 | NUR ---
RT AT BEDSIDE FOR XOPENEX TX.
--- OUTSIDE RECORDS SUMMARY | 2016-11-01 13:37 | XMS REPORT | Continuity of Care Document ---
Author Author [facility] Organization [facility] Address Unknown Phone Unavailable Support Name Relationship Address Phone BEULAH LOUIS MD Caregiver [facility] [address] [place] [address] Unavailable DAXA FLOWERS II, MD Caregiver [address] [place] [address] [phone] IRENE TURCIOS Caregiver [facility] [address] [facility] [address] [place] [address] YESIKA AVILES Next Of Kin [address] [place] [id number] Insurance Providers Payer Name Policy Number Subscriber [...] F (96.8 - 99.1) Temperature (Calculated Celsius) 36.92174 degrees C (36.0 - 37.3) Pulse Rate [...] Has specimen been collected/obtained? Y Urine Specific [place] January 05, 2014 9:50pm 1.015 - Has [...] Encounters Encounter Location Date/Time Departed Emergency Room [facility] 01/05/14 7:51pm Recent Diagnosis
--- NOTE | 2016-11-01 14:05 | NUR ---
XRAY PT TO XRAY BY W/C AT THIS TIME.
--- NOTE | 2016-11-01 14:09 | NUR ---
RETURN PT RETURNED FROM XRAY BY W/C AT THIS TIME.
--- NOTE | 2016-11-01 14:14 | DI ---
INDICATION: ITS.REASON: SOA, recovering from asthma PROCEDURE: CHEST 2-VIEWS UPRIGHT (PA \T\ LAT) Encounter: Initial COMPARISON: October 09, 2016 FINDINGS: The lungs are clear without evidence of focal abnormal airspace opacity. There is no pleural effusion or pneumothorax. The heart size, mediastinal contours and pulmonary vascularity are within normal limits. There is no significant skeletal abnormality. IMPRESSION: No acute cardiopulmonary disease. .
[2016-11-01 14:16] LABS: BASOPHILS % (AUTO) 0.5 % (0-2); EOSINOPHILS # (AUTO) 0.1 T/MM3 (0-0.5); EOSINOPHILS % (AUTO) 1.2 % (0-4); HCT - HEMATOCRIT 40.8 % (36-46); HGB - HEMOGLOBIN 13.7 GM/DL (12-16); IMMATURE GRANULOCYTE # (AUTO) 0.01 T/MM3 (0.00-0.03); IMMATURE GRANULOCYTE % (AUTO) 0.1 % (0.0-0.5); LYMPHOCYTES # (AUTO) 2.7 T/MM3 (1-4.8); LYMPHOCYTES % (AUTO) 30.9 % (23-45); MEAN CORPUSCULAR HGB 29.1 UUG (26-34); MEAN CORPUSCULAR HGB CONC(MCHC 33.6 GM/DL (31-37); MEAN CORPUSCULAR VOLUME 86.6 UM3 (80-100); MEAN PLATELET VOLUME 9.7 UM3 (9.4-12.4); MONOCYTES # (AUTO) 0.4 T/MM3 (0-0.8); NEUTROPHILS #(AUTO)-ABSOLUTE 5.4 T/MM3 (1.8-7.7); NEUTROPHILS % (AUTO) 62.3 % (33-66); RED BLOOD COUNT 4.71 M/MM3 (4.00-5.20); WBC - WHITE BLOOD COUNT 8.6 T/MM3 (4.5-11.0)
[2016-11-01 14:25] LABS: ALBUMIN/GLOBULIN RATIO 1.6 RATIO (1.1-2.2); ALKALINE PHOSPHATASE 83 U/L (38-126); ALT (SGPT) 36 U/L (9-52); ANION GAP 16 MEQ/L (5-15); AST (SGOT) 19 U/L (14-36); BUN/CREATININE RATIO 13 RATIO (6-26); CALCIUM 10.4 MG/DL (8.4-10.2); CHLORIDE 104 MEQ/L (98-107); CO2 - CARBON DIOXIDE 19 MEQ/L (22-30); GLOMERULAR FILTRATION RATE 64; GLUCOSE 91 MG/DL (65-110); SODIUM 139 MEQ/L (134-144); TOTAL PROTEIN 8.2 G/DL (6.3-8.2)
[2016-11-01] MEDS ORDERED: ORPHENADRINE 60mg/2ml INJECTION IV ONE (14:45)
--- NOTE | 2016-11-01 15:05 | NUR ---
STATUS PT STATES "I DON'T KNOW WHAT WAS IN THAT MEDICINE, BUT IT'S HUANG." REPORTS SIGNIFICANT IMPROVEMENT IN HEAD PAIN AFTER NORFLEX ADM. PT ADDITIONALLY STATES "IS THERE ANY WAY THAT I COULD GO WITHOUT THAT SECOND BAG OF FLUIDS? MY SON GETS OUT OF SCHOOL SOON, AND I CAN'T FIND ANYONE TO PICK HIM UP." PROVIDER NOTIFIED.
--- NOTE | 2016-11-01 15:11 | NUR ---
PROVIDER Ed BELLO APRN AT BEDSIDE TO SPEAK WITH PT.
[2016-11-01] MEDS ORDERED: SUMA25TA PO (15:21)
[2016-11-01 15:30] VITALS: BP 110/74; PULSE 68; RESP 18; TEMP 97.6; O2SAT 97
--- NOTE | 2016-11-01 15:30 | NUR ---
DISCHARGE WRITTEN INSTRUCTIONS REVIEWED AND SENT WITH PT. PT VERBALIZES UNDERSTANDING OF DI, DENIES QUESTIONS. REPORTS HEADACHE 10/10 AT THIS TIME. PT AMBULATES OUT OF ER WITH STEADY GAIT AT THIS TIME.
== END 2016-11-01 15:30 | disposition home or self-care (01) ==
LOC: ED 13:07
DX: G43.109 Migraine with aura, not intractable, without status migrainosus (principal); R06.02 Shortness of breath
CPT/HCPCS: 71020; 80053; 84484; 85025; 85379; 94640; 96361; 96374; 96375; 99284; J0780; J1170; J2360; J7030; J7614

== ENCOUNTER 2016-11-16 12:37 | Emergency (ER) | payer SELFPAY ==
[~2016-11-16] VITALS: Ht 170.2 cm; Wt 82.9 kg
[~2016-11-16 12:37] MED LIST changes: -ALBU8.5H INH; -AZIT500T2 PO; +SUMA25TA PO
[2016-11-16 12:41] VITALS: Ht 170.2 cm; Wt 82.9 kg
--- OUTSIDE RECORDS SUMMARY | 2016-11-16 12:43 | XMS REPORT | Continuity of Care Document ---
Author Author [facility] Organization [facility] Address Unknown Phone Unavailable Support Name Relationship Address Phone LONNY SEO MD Caregiver [address] [place] [address] SARBJIT MONTE MD Caregiver [address] [place], [place] [phone] DEBRAFADY BAUTISTA Next Of Kin [address] [place], [place] [phone] Insurance Providers Payer Name Policy Number Subscriber [...] F (96.8 - 99.1) Temperature (Calculated Celsius) 36.06351 degrees C (36.0 - 37.3) Pulse Rate [...] Has specimen been collected/obtained? Y Urine Specific [place] March 10, 2014 7:28pm >=1.030 H - [...] Report February 27, 2014 4:08am REFERENCE LAB [id number] - Anti-Nuclear Antibody (LAB) March 01, 2008 [...] 2008 11:38am Name: TROY AVILES Unit #: [id number] : 1985 Sex: F Loc / Svc: ED DOS: Signed Report #: [id number] DIAGNOSTIC IMAGING REPORT TYPE OF EXAM: KUB [...] ADDON completed 02/27/14 TX/PRO/DX INJ SAME DRUG CIRCULATION WORKER completed 02/27/14 HYDRATE IV INFUSION ADD-ON completed 02/27/14 THER/PROPH/DIAG INJ IV PUSH completed 03/10/14 TX/PRO/DX INJ NEW DRUG ADDON completed 03/10/14 TX/PRO/DX INJ SAME DRUG CIRCULATION WORKER completed 03/10/14 HYDRATE IV INFUSION ADD-ON completed 03/10/14 Encounters Encounter Location Date/Time Departed Emergency Room [facility] 04/28/14 2:47pm Departed Emergency Room [facility] 03/10/14 5:24pm Departed Emergency Room [facility] 02/27/14 12:25am Departed Emergency Room [facility] 02/07/14 10:36am Recent Diagnosis
--- OUTSIDE RECORDS SUMMARY | 2016-11-16 12:43 | XMS REPORT ---
Author Author [place] - Organization Unknown Address Unknown Phone [...] the responsibility of the patient or patient event marketing representative to confirm the list of medications [...] Clean Catch Received : 02/03/13 21:31 Order#: [id number] Urine Culture FINAL 02/05/13 09:14 Mixed frank indicative of vaginal and/or skin contamination MARIA FOR RESULTS: * - NEW RESULT - RESULT WAS MODIFIED AFTER FINAL STATUS SET LAB--MICROBIOLOGY from 02/04/2013 1:50 PMOva And Parasite Exam Source: Stool Collected: 02/04/13 13:50 Site: Received : 02/04/13 14:00 Order#: [id number] Ova and Parasite Exam FINAL 02/05/13 11:34 S White blood cells present No ova or parasites observed . Specimen examined by formalin concentration procedure and trichrome-stained smear. S: Performed at:[place], [place] CLIA#[id number] MARIA FOR RESULTS: * - NEW RESULT - RESULT WAS MODIFIED AFTER FINAL STATUS SET C. difficile Toxin B Source: Stool Collected: 11/12 13:50 Site: Received : 02/04/13 14:01 Order#: [id number] C. difficile toxin B by PCR FINAL 02/04/13 21:08 Negative - C. difficile toxin B not detected by PCR MARIA FOR RESULTS: * - NEW RESULT - RESULT WAS MODIFIED AFTER FINAL STATUS SET Fecal Leucocyte Stain (Stool WBC) A Source: Stool Collected: 02/04/13 13:50 Site: Received : 02/04/13 14:01 Order#: [id number] Fecal Leucocyte Stain FINAL 02/04/13 14:12 Many white blood cells present MARIA FOR RESULTS: * - NEW RESULT - RESULT WAS MODIFIED AFTER FINAL STATUS SET LAB--MICROBIOLOGY from 02/04/2013 8:45 PMStool Culture and Shiga Toxin Test Source: Stool Collected: 02/04/13 20:45 Site: Received : 02/04/13 20:54 Order#: [id number] Shiga toxin test FINAL 02/06/13 08:11 Unable [...] Protein Pos 1+ A (Negative ) Specific [place] 1.015 (1.003-1.030 ) Collection Type: Clean Catch Urobilinogen Negative mg/dL (-<1.0 mg/dL) Bacteria Occasional A Epithelial Cells 5-10 /HPF Mucus Present RBC >50 /HPF A (0-2 /HPF) WBC 0-2 /HPF (0-4 /HPF)
--- OUTSIDE RECORDS SUMMARY | 2016-11-16 12:43 | XMS REPORT ---
Author Author [place] - Organization Unknown Address Unknown Phone Unavailable [...] (5.0-8.0 ) Protein Negative (Negative ) Specific [place] 1.015 (1.003-1.030 ) Collection Type: Clean Catch Urobilinogen Negative mg/dL (-<1.0 mg/dL) Bacteria Rare Epithelial Cells 5-10 /HPF Mucus Present RBC 0-2 /HPF (0-2 /HPF) WBC 2-5 /HPF (0-4 /HPF)
--- OUTSIDE RECORDS SUMMARY | 2016-11-16 12:44 | XMS REPORT ---
Author Author [place] - Organization Unknown Address Unknown [...] (5.0-8.0 ) Protein Negative (Negative ) Specific [place] 1.009 (1.003-1.030 ) Collection Type: Clean Catch Urobilinogen Negative mg/dL (-<1.0 mg/dL) Bacteria Occasional A Epithelial Cells 2-5 /HPF Mucus Present RBC 0-2 /HPF (0-2 /HPF) WBC 2-5 /HPF (0-4 /HPF)
--- OUTSIDE RECORDS SUMMARY | 2016-11-16 12:44 | XMS REPORT | Continuity of Care Document ---
Author Author [facility] Organization [facility] Address Unknown Phone Unavailable Support Name Relationship Address Phone BEULAH LOUIS MD Caregiver [facility] [address] [place] [address] Unavailable SARBJIT MONTE MD Caregiver [address] [place] [phone] TORO SIMMONS Next Of Kin [address] [place] [address] Insurance Providers Payer Name Policy Number Subscriber [...] F (96.8 - 99.1) Temperature (Calculated Celsius) 36.88621 degrees C (36.0 - 37.3) Pulse Rate [...] Has specimen been collected/obtained? Y Urine Specific [place] September 19, 2014 1:07am >=1.030 H - [...] 3:40pm Name: AVILESROSA ELENATROY A Unit #: [id number] : 1985 Sex: F Loc / Svc: ED DOS: 08/28/14 Signed Report #: [id number] DIAGNOSTIC IMAGING REPORT TYPE OF EXAM: CHEST, [...] ADDON completed 07/30/14 TX/PRO/DX INJ SAME DRUG TECHNICAL ENGINEER completed 07/30/14 HYDRATE IV INFUSION ADD-ON completed [...] Encounters Encounter Location Date/Time Departed Emergency Room [facility] 09/19/14 12:32am Departed Emergency Room [facility] 08/28/14 9:36am Departed Emergency Room [facility] 08/19/14 7:04pm Departed Emergency Room [facility] 07/30/14 9:52pm Departed Emergency Room [facility] 07/23/14 11:53am Departed Emergency Room [facility] 07/15/14 3:56pm Recent Diagnosis
--- OUTSIDE RECORDS SUMMARY | 2016-11-16 12:45 | XMS REPORT | Continuity of Care Document ---
Author Author [facility] Organization [facility] Address Unknown Phone Unavailable Support Name Relationship Address Phone JULIAN LE MD [address] [place] [phone] YESIKA AVILES Next Of Kin [address] [place] [address] Insurance Providers Payer Name Policy Number Subscriber [...] F (96.8 - 99.1) Temperature (Calculated Celsius) 36.49299 degrees C (36.0 - 37.3) Pulse Rate [...] Has specimen been collected/obtained? Y Urine Specific [place] February 07, 2014 11:10am 1.020 - Has [...] 2008 11:38am Name: TROY AVILES Unit #: [id number] : 1985 Sex: F Loc / Svc: ED DOS: Signed Report #: [id number] DIAGNOSTIC IMAGING REPORT TYPE OF EXAM: KUB [...] Encounters Encounter Location Date/Time Registered Emergency Room [facility] 02/07/14 10:36am Departed Emergency Room [facility] 01/05/14 7:51pm Recent Diagnosis
--- OUTSIDE RECORDS SUMMARY | 2016-11-16 12:45 | XMS REPORT | Continuity of Care Document ---
Author Author [facility]IVE Organization [facility] Address Unknown Phone Unavailable Support Name Relationship Address Phone BEULAH LOUIS MD Caregiver [facility] [address] [place] [address] Unavailable SARBJIT MONTE MD Caregiver [address] [place] [address] [phone] TORO SIMMONS Next Of Kin [address] [place] [address] Insurance Providers Payer Name Policy Number Subscriber [...] F (96.8 - 99.1) Temperature (Calculated Celsius) 36.66197 degrees C (36.0 - 37.3) Pulse Rate [...] Report July 29, 2014 4:27pm REFERENCE LAB [id number] - Lipase August 19, 2014 9:06pm 273 [...] Has specimen been collected/obtained? Y Urine Specific [place] August 19, 2014 9:42pm 1.010 L - [...] 2014 3:40pm Name: TROY AVILES Unit #: [id number] : 1985 Sex: F Loc / Svc: ED DOS: 07/30/14 Signed Report #: [id number] DIAGNOSTIC IMAGING REPORT TYPE OF EXAM: CHEST [...] ADDON completed 06/15/14 TX/PRO/DX INJ SAME DRUG JANITOR HEAD completed 06/15/14 HYDRATE IV INFUSION ADD-ON completed [...] ADDON completed 07/30/14 TX/PRO/DX INJ SAME DRUG JANITOR HEAD completed 07/30/14 Encounters Encounter Location Date/Time Departed Emergency Room [facility] 08/19/14 7:04pm Departed Emergency Room [facility] 07/30/14 9:52pm Departed Emergency Room [facility] 07/23/14 11:53am Departed Emergency Room [facility] 07/15/14 3:56pm Departed Emergency Room [facility] 06/15/14 4:17pm Departed Emergency Room [facility] 06/08/14 5:33pm Recent Diagnosis
--- OUTSIDE RECORDS SUMMARY | 2016-11-16 12:46 | XMS REPORT | Continuity of Care Document ---
Author Author [facility] LIVE Organization [facility] Address Unknown Phone Unavailable Support Name Relationship Address Phone NEO, SHAMA Caregiver [facility] [address] [place] [phone] SARBJIT MONTE MD Caregiver [address] [place] [address] [phone] TORO SIMMONS Next Of Kin [address] [place] [address] Insurance Providers Payer Name Policy Number Subscriber [...] F (96.8 - 99.1) Temperature (Calculated Celsius) 36.26485 degrees C (36.0 - 37.3) Pulse Rate [...] Has specimen been collected/obtained? Y Urine Specific [place] June 15, 2014 5:15pm >=1.030 H - [...] Report February 27, 2014 4:08am RE[facility] LAB [id number] - Anti-Nuclear Antibody (LAB) March 01, 2008 [...] 2014 3:40pm Name: TROY AVILES Unit #: [id number] : 1985 Sex: F Loc / [facility] [place]: ED DOS: 06/15/14 Signed Report #: [id number] DIAGNOSTIC IMAGING REPORT TYPE OF EXAM: CT [...] ADDON completed 06/15/14 TX/PRO/DX INJ SAME DRUG HEPATOLOGY PHYSICIAN completed 06/15/14 Encounters Encounter Location Date/Time Departed Emergency Room [facility] 07/15/14 3:56pm Departed Emergency Room [facility] 06/15/14 4:17pm Departed Emergency Room [facility] 06/08/14 5:33pm Departed Emergency Room [facility] 05/17/14 11:22pm Departed Emergency Room [facility] 05/01/14 6:45pm Departed Emergency Room [facility] 04/28/14 2:47pm Recent Diagnosis
--- OUTSIDE RECORDS SUMMARY | 2016-11-16 12:46 | XMS REPORT | Continuity of Care Document ---
Author Author [facility] LIVE Organization [facility] Address Unknown Phone Unavailable Support Name Relationship Address Phone SARBJIT MONTE MD Caregiver [address] [place] [phone] PUJA DEWEY MD Caregiver [address] [place] [phone] [facility] Next Of Kin [address] [place] [address] Insurance Providers Payer Name Policy [...] F (96.8 - 99.1) Temperature (Calculated Celsius) 35.67852 degrees C (36.0 - 37.3) Pulse Rate [...] Has specimen been collected/obtained? Y Urine Specific [place] March 10, 2014 7:28pm >=1.030 H - [...] Report February 27, 2014 4:08am REFER[facility] LAB [id number] - Anti-Nuclear Antibody (LAB) March 01, 2008 [...] ADDON completed 02/27/14 TX/PRO/DX INJ SAME DRUG SUPERVISOR REAL ESTATE OFFICE completed 02/27/14 HYDRATE IV INFUSION ADD-ON completed 02/27/14 THER/PROPH/DIAG INJ IV PUSH completed 03/10/14 TX/PRO/DX INJ NEW DRUG ADDON completed 03/10/14 TX/PRO/DX INJ SAME DRUG SUPERVISOR REAL ESTATE OFFICE completed 03/10/14 HYDRATE IV INFUSION ADD-ON completed 03/10/14 DRAINAGE OF SKIN ABSCESS completed 05/01/14 SHAMA LARSON DO Encounters Encounter Location Date/Time Departed Emergency Room [facility] 05/17/14 11:22pm Departed Emergency Room [facility] 05/01/14 6:45pm Departed Emergency Room [facility] 04/28/14 2:47pm Departed Emergency Room [facility] 03/10/14 5:24pm Departed Emergency Room [facility] 02/27/14 12:25am Recent Diagnosis
--- OUTSIDE RECORDS SUMMARY | 2016-11-16 12:46 | XMS REPORT | Continuity of Care Document ---
Author Author [facility] LIVE Organization [facility] Address Unknown Phone Unavailable Support Name Relationship Address Phone NEOSHAMA BAGLEY Caregiver [facility] [address] [place], [place] [phone] SARBJIT MONTE MD Caregiver [address] [place], [place] [phone] DEBRADAVIDE BAUTISTAAE Next Of Kin [address] [place] [address] Insurance Providers Payer Name Policy Number Subscriber [...] F (96.8 - 99.1) Temperature (Calculated Celsius) 36.15628 degrees C (36.0 - 37.3) Pulse Rate [...] Has specimen been collected/obtained? Y Urine Specific [place] March 10, 2014 7:28pm >=1.030 H - [...] Report February 27, 2014 4:08am REFER[facility] LAB [id number] - Anti-Nuclear Antibody (LAB) March 01, 2008 [...] 2014 3:40pm Name: TROY AVILES Unit #: [id number] : 1985 Sex: F Loc / Svc: ED DOS: Signed Report #: [id number] DIAGNOSTIC IMAGING REPORT TYPE OF EXAM: KUB [...] ADDON completed 02/27/14 TX/PRO/DX INJ SAME DRUG HEAD MACHINIST completed 02/27/14 HYDRATE IV INFUSION ADD-ON completed 02/27/14 THER/PROPH/DIAG INJ IV PUSH completed 03/10/14 TX/PRO/DX INJ NEW DRUG ADDON completed 03/10/14 TX/PRO/DX INJ SAME DRUG HEAD MACHINIST completed 03/10/14 HYDRATE IV INFUSION ADD-ON completed 03/10/14 Encounters Encounter Location Date/Time Departed Emergency Room [facility] 05/01/14 6:45pm Departed Emergency Room [facility] 04/28/14 2:47pm Departed Emergency Room [facility] 03/10/14 5:24pm Departed Emergency Room [facility] 02/27/14 12:25am Departed Emergency Room [facility] 02/07/14 10:36am Recent Diagnosis
--- OUTSIDE RECORDS SUMMARY | 2016-11-16 12:46 | XMS REPORT ---
Author Author [facility], [facility] - Organization Unknown [...] (5.0-8.0 ) Protein Negative (Negative ) Specific [place] 1.016 (1.003-1.030 ) Collection Type: Clean Catch Urobilinogen Negative mg/dL (-<1.0 mg/dL)
--- OUTSIDE RECORDS SUMMARY | 2016-11-16 12:47 | XMS REPORT | Continuity of Care Document ---
Author Author [facility] Organization [facility] Address Unknown Phone Unavailable Support Name Relationship Address Phone LEVAR SEO MD Caregiver [address] [place] [address] SARBJIT MONTE MD Caregiver [address] [place] [phone] TORO SIMMONS Next Of Kin [address] [place], [place] [id number] Insurance Providers Payer Name Policy Number Subscriber [...] F (96.8 - 99.1) Temperature (Calculated Celsius) 36.61915 degrees C (36.0 - 37.3) Pulse Rate [...] Has specimen been collected/obtained? Y Urine Specific [place] June 15, 2014 5:15pm >=1.030 H - [...] Report February 27, 2014 4:08am REFERENCE LAB [id number] - Anti-Nuclear Antibody (LAB) March 01, 2008 [...] Encounters Encounter Location Date/Time Departed Emergency Room [facility] 06/15/14 4:17pm Departed Emergency Room [facility] 06/08/14 5:33pm Departed Emergency Room [facility] 05/17/14 11:22pm Departed Emergency Room [facility] 05/01/14 6:45pm Departed Emergency Room [facility] 04/28/14 2:47pm Recent Diagnosis
--- OUTSIDE RECORDS SUMMARY | 2016-11-16 12:48 | XMS REPORT | Continuity of Care Document ---
Author Author [facility]IVE Organization [facility] Address Unknown Phone Unavailable Support Name Relationship Address Phone SARBJIT MONTE MD Caregiver [address] [place] [phone] JULIAN LE MD Caregiver [address] [place] [phone] TORO SIMMONS Next Of Kin [address] [place], [place] [id number] Insurance Providers Payer Name Policy Number Subscriber [...] F (96.8 - 99.1) Temperature (Calculated Celsius) 36.46247 degrees C (36.0 - 37.3) Pulse Rate [...] Has specimen been collected/obtained? Y Urine Specific [place] March 10, 2014 7:28pm >=1.030 H - [...] Report February 27, 2014 4:08am REFERENCE LAB [id number] - Anti-Nuclear Antibody (LAB) March 01, 2008 [...] ADDON completed 03/10/14 TX/PRO/DX INJ SAME DRUG MEAT TRIMMER completed 03/10/14 HYDRATE IV INFUSION ADD-ON completed 03/10/14 DRAINAGE OF SKIN ABSCESS completed 05/01/14 SHAMA LARSON DO THER/PROPH/DIAG INJ SC/IM completed 05/17/14 THER/PROPH/DIAG INJ SC/IM completed 05/17/14 Encounters Encounter Location Date/Time Registered Emergency Room [facility] 06/08/14 5:33pm Departed Emergency Room [facility] 05/17/14 11:22pm Departed Emergency Room [facility] 05/01/14 6:45pm Departed Emergency Room [facility] 04/28/14 2:47pm Departed Emergency Room [facility] 03/10/14 5:24pm Recent Diagnosis
--- OUTSIDE RECORDS SUMMARY | 2016-11-16 12:49 | XMS REPORT | Continuity of Care Document ---
Author Author [facility] Organization [facility] Address Unknown Phone Unavailable Support Name Relationship Address Phone SARBJIT MONTE MD Caregiver [address] [place] [phone] PUJA DEWEY MD Caregiver [address] [place] [phone] TORO SIMMONS Next Of Kin [address] [place], [place] [id number] Insurance Providers Payer Name Policy Number Subscriber [...] F (96.8 - 99.1) Temperature (Calculated Celsius) 36.72721 degrees C (36.0 - 37.3) Pulse Rate [...] Has specimen been collected/obtained? Y Urine Specific [place] June 15, 2014 5:15pm >=1.030 H - [...] Report February 27, 2014 4:08am REFERENCE LAB [id number] - Anti-Nuclear Antibody (LAB) March 01, 2008 [...] 2014 3:40pm Name: TROY AVILES Unit #: [id number] : 1985 Sex: F Loc / Svc: ED DOS: 07/23/14 Signed Report #: [id number] DIAGNOSTIC IMAGING REPORT TYPE OF EXAM: US [...] ADDON completed 06/15/14 TX/PRO/DX INJ SAME DRUG PRODUCTION ANALYST completed 06/15/14 Encounters Encounter Location Date/Time Departed Emergency Room [facility] 07/23/14 11:53am Departed Emergency Room [facility] 07/15/14 3:56pm Departed Emergency Room [facility] 06/15/14 4:17pm Departed Emergency Room [facility] 06/08/14 5:33pm Departed Emergency Room [facility] 05/17/14 11:22pm Departed Emergency Room [facility] 05/01/14 6:45pm Departed Emergency Room [facility] 04/28/14 2:47pm Recent Diagnosis
--- OUTSIDE RECORDS SUMMARY | 2016-11-16 12:49 | XMS REPORT | Continuity of Care Document ---
Author Author [facility] LIVE Organization [facility] Address Unknown Phone Unavailable Support Name Relationship Address Phone SARBJIT MONTE MD Caregiver [address] [place] [phone] PUJA DEWEY MD Caregiver [address] [place] [phone] TORO SIMMONS Next Of Kin [address] [place], [place] [id number] Insurance Providers Payer Name Policy Number Subscriber [...] F (96.8 - 99.1) Temperature (Calculated Celsius) 36.36828 degrees C (36.0 - 37.3) Pulse Rate [...] Report July 29, 2014 4:27pm REFERENCE LAB [id number] - Lipase August 19, 2014 9:06pm 273 [...] Has specimen been collected/obtained? Y Urine Specific [place] August 19, 2014 9:42pm 1.010 L - [...] 2014 3:40pm Name: TROY AVILES Unit #: [id number] : 1985 Sex: F Loc / Svc: ED DOS: 08/28/14 Signed Report #: [id number] DIAGNOSTIC IMAGING REPORT TYPE OF EXAM: CHEST, [...] ADDON completed 06/15/14 TX/PRO/DX INJ SAME DRUG CAREER TECHNICAL EDUCATION TEACHER completed 06/15/14 HYDRATE IV INFUSION ADD-ON completed [...] ADDON completed 07/30/14 TX/PRO/DX INJ SAME DRUG CAREER TECHNICAL EDUCATION TEACHER completed 07/30/14 Encounters Encounter Location Date/Time Departed Emergency Room [facility] 08/28/14 9:36am Departed Emergency Room [facility] 08/19/14 7:04pm Departed Emergency Room [facility] 07/30/14 9:52pm Departed Emergency Room [facility] 07/23/14 11:53am Departed Emergency Room [facility] 07/15/14 3:56pm Departed Emergency Room [facility] 06/15/14 4:17pm Departed Emergency Room [facility] 06/08/14 5:33pm Recent Diagnosis
--- OUTSIDE RECORDS SUMMARY | 2016-11-16 12:50 | XMS REPORT | Continuity of Care Document ---
Author Author [facility] LIVE Organization [facility] Address Unknown Phone Unavailable Support Name Relationship Address Phone SARBJIT MONTE MD Caregiver [address] [place] [phone] PUJA DEWEY MD Caregiver [address] [place] [phone] TORO SIMMONS Next Of Kin [address] [place], [place] [id number] Insurance Providers Payer Name Policy Number Subscriber [...] F (96.8 - 99.1) Temperature (Calculated Celsius) 36.19706 degrees C (36.0 - 37.3) Pulse Rate [...] Report July 29, 2014 4:27pm REFERENCE LAB [id number] - Lipase July 23, 2014 12:13pm 77 [...] Has specimen been collected/obtained? Y Urine Specific [place] July 31, 2014 12:01am >=1.030 H - [...] 2014 3:40pm Name: TROY AVILES Unit #: [id number] : 1985 Sex: F Loc / Svc: ED DOS: 07/23/14 Signed Report #: [id number] DIAGNOSTIC IMAGING REPORT TYPE OF EXAM: US [...] ADDON completed 06/15/14 TX/PRO/DX INJ SAME DRUG AUTOMOTIVE DESIGN LAYOUT DRAFTER completed 06/15/14 HYDRATE IV INFUSION ADD-ON completed 07/23/14 THER/PROPH/DIAG INJ IV PUSH completed 07/23/14 TX/PRO/DX INJ NEW DRUG ADDON completed 07/23/14 TX/PRO/DX INJ NEW DRUG ADDON completed 07/23/14 TX/PRO/DX INJ NEW DRUG ADDON completed 07/23/14 TX/PRO/DX INJ NEW DRUG ADDON completed 07/23/14 TX/PRO/DX INJ NEW DRUG ADDON completed 07/23/14 Encounters Encounter Location Date/Time Registered Emergency Room [facility] 07/30/14 9:52pm Departed Emergency Room [facility] 07/23/14 11:53am Departed Emergency Room [facility] 07/15/14 3:56pm Departed Emergency Room [facility] 06/15/14 4:17pm Departed Emergency Room [facility] 06/08/14 5:33pm Departed Emergency Room [facility] 05/17/14 11:22pm Recent Diagnosis
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
--- OUTSIDE RECORDS SUMMARY | 2016-11-16 12:51 | XMS REPORT | Continuity of Care Document ---
Author Author [facility] Organization [facility] Address Unknown Phone Unavailable Support Name Relationship Address Phone LEVAR SEO MD Caregiver [address] [place] [address] SARBJIT MONTE MD Caregiver [address] [place] [phone] TORO SIMMONS Next Of Kin [address] [place], [place] [phone] Insurance Providers Payer Name Policy Number Subscriber [...] F (96.8 - 99.1) Temperature (Calculated Celsius) 36.83949 degrees C (36.0 - 37.3) Pulse Rate [...] 24, 2014 7:34pm 4.8 % N 0-9.0 TP-Lgg-D-Type Natriuretic Peptide September 24, 2014 7:34pm 38 [...] Has specimen been collected/obtained? Y Urine Specific [place] September 19, 2014 1:07am >=1.030 H - [...] 2014 3:40pm Name: TROY AVILES Unit #: [id number] : 1985 Sex: F Loc / Svc: ED DOS: 08/28/14 Signed Report #: [id number] DIAGNOSTIC IMAGING REPORT TYPE OF EXAM: CHEST, [...] ADDON completed 07/30/14 TX/PRO/DX INJ SAME DRUG LITHARGE SUPERVISOR completed 07/30/14 HYDRATE IV INFUSION ADD-ON completed [...] Encounters Encounter Location Date/Time Registered Emergency Room [facility] 09/24/14 7:07pm Departed Emergency Room [facility] 09/19/14 12:32am Departed Emergency Room [facility] 08/28/14 9:36am Departed Emergency Room [facility] 08/19/14 7:04pm Departed Emergency Room [facility] 07/30/14 9:52pm Departed Emergency Room [facility] 07/23/14 11:53am Departed Emergency Room [facility] 07/15/14 3:56pm Recent Diagnosis
--- OUTSIDE RECORDS SUMMARY | 2016-11-16 12:52 | XMS REPORT | Continuity of Care Document ---
Author Author [facility] Organization [facility] Address Unknown Phone Unavailable Support Name Relationship Address Phone BEULAH LOUIS MD Caregiver [facility] [address] [place] [address] Unavailable DAXA FLOWERS II, MD Caregiver [address] [place] [address] [phone] IRENE TURCIOS Caregiver [facility] [address] [facility] [address] [place] [address] YESIKA AVILSE Next Of Kin [address] [place] [id number] Insurance Providers Payer Name Policy Number Subscriber [...] F (96.8 - 99.1) Temperature (Calculated Celsius) 36.37430 degrees C (36.0 - 37.3) Pulse Rate [...] Has specimen been collected/obtained? Y Urine Specific [place] January 05, 2014 9:50pm 1.015 - Has [...] Date/Time Departed Emergency Room [facility] 01/05/14 7:51pm Recent Diagnosis
--- OUTSIDE RECORDS SUMMARY | 2016-11-16 12:52 | XMS REPORT | Continuity of Care Document ---
Author Author [facility] Organization [facility] Address Unknown Phone Unavailable Support Name Relationship Address Phone BEULAH LOUIS MD Caregiver [address] [place] [address] Unavailable FADY AGUIAR Next Of Kin [address] [place] [address] Insurance Providers Payer Name Policy Number Subscriber [...] F (96.8 - 99.1) Temperature (Calculated Celsius) 36.81119 degrees C (36.0 - 37.3) Pulse Rate [...] Has specimen been collected/obtained? Y Urine Specific [place] February 07, 2014 11:10am 1.020 - Has [...] 2008 11:38am Name: TROY AVILES Unit #: [id number] : 1985 Sex: F Loc / Svc: ED DOS: Signed Report #: [id number] DIAGNOSTIC IMAGING REPORT TYPE OF EXAM: KUB [...] Encounters Encounter Location Date/Time Registered Emergency Room [facility] 02/27/14 12:25am Departed Emergency Room [facility] 02/07/14 10:36am Departed Emergency Room [facility] 01/05/14 7:51pm Recent Diagnosis
[2016-11-16] MEDS ORDERED: NORMAL SALINE 1,000 ML IV ONE ×2 (12:56→14:30)
--- OUTSIDE RECORDS SUMMARY | 2016-11-16 12:59 | XMS REPORT ---
Author Author [place] - Organization Unknown Address Unknown Phone [...] the responsibility of the patient or patient commissary representative to confirm the list of medications [...] Clean Catch Received : 02/03/13 21:31 Order#: [id number] Urine Culture FINAL 02/05/13 09:14 Mixed frank indicative of vaginal and/or skin contamination MARIA FOR RESULTS: * - NEW RESULT - RESULT WAS MODIFIED AFTER FINAL STATUS SET LAB--MICROBIOLOGY from 02/04/2013 1:50 PMOva And Parasite Exam Source: Stool Collected: 02/04/13 13:50 Site: Received : 02/04/13 14:00 Order#: [id number] Ova and Parasite Exam FINAL 02/05/13 11:34 S White blood cells present No ova or parasites observed . Specimen examined by formalin concentration procedure and trichrome-stained smear. S: Performed at:[place], [place] CLIA#[id number] MARIA FOR RESULTS: * - NEW RESULT - RESULT WAS MODIFIED AFTER FINAL STATUS SET C. difficile Toxin B Source: Stool Collected: 11/12 13:50 Site: Received : 02/04/13 14:01 Order#: [id number] C. difficile toxin B by PCR FINAL 02/04/13 21:08 Negative - C. difficile toxin B not detected by PCR MARIA FOR RESULTS: * - NEW RESULT - RESULT WAS MODIFIED AFTER FINAL STATUS SET Fecal Leucocyte Stain (Stool WBC) A Source: Stool Collected: 02/04/13 13:50 Site: Received : 02/04/13 14:01 Order#: [id number] Fecal Leucocyte Stain FINAL 02/04/13 14:12 Many white blood cells present MARIA FOR RESULTS: * - NEW RESULT - RESULT WAS MODIFIED AFTER FINAL STATUS SET LAB--MICROBIOLOGY from 02/04/2013 8:45 PMStool Culture and Shiga Toxin Test Source: Stool Collected: 02/04/13 20:45 Site: Received : 02/04/13 20:54 Order#: [id number] Shiga toxin test FINAL 02/06/13 08:11 Unable [...] Protein Pos 1+ A (Negative ) Specific [place] 1.015 (1.003-1.030 ) Collection Type: Clean Catch Urobilinogen Negative mg/dL (-<1.0 mg/dL) Bacteria Occasional A Epithelial Cells 5-10 /HPF Mucus Present RBC >50 /HPF A (0-2 /HPF) WBC 0-2 /HPF (0-4 /HPF)
--- OUTSIDE RECORDS SUMMARY | 2016-11-16 12:59 | XMS REPORT ---
Author Author [place] - Organization Unknown Address Unknown Phone Unavailable [...] (5.0-8.0 ) Protein Negative (Negative ) Specific [place] 1.015 (1.003-1.030 ) Collection Type: Clean Catch Urobilinogen Negative mg/dL (-<1.0 mg/dL) Bacteria Rare Epithelial Cells 5-10 /HPF Mucus Present RBC 0-2 /HPF (0-2 /HPF) WBC 2-5 /HPF (0-4 /HPF)
[2016-11-16] MEDS ORDERED: HYDROXYZINE 50 MG/ML IM ONE (13:00)
[2016-11-16] MEDS ORDERED: NITROGLYCERIN 0.4 MG SUBLINGUAL TABLET SL PRN (13:00)
[2016-11-16] MEDS ORDERED: ORPHENADRINE 60mg/2ml INJECTION IV ONE (13:00)
[2016-11-16] MEDS ORDERED: ASPIRIN 81 MG CHEWABLE TABLET PO ONE (13:00)
--- OUTSIDE RECORDS SUMMARY | 2016-11-16 13:00 | XMS REPORT ---
Author Author [place] [place] [place] Organization Unknown Address Unknown Phone Unavailable [...] (5.0-8.0 ) Protein Negative (Negative ) Specific [place] 1.009 (1.003-1.030 ) Collection Type: Clean Catch Urobilinogen Negative mg/dL (-<1.0 mg/dL) Bacteria Occasional A Epithelial Cells 2-5 /HPF Mucus Present RBC 0-2 /HPF (0-2 /HPF) WBC 2-5 /HPF (0-4 /HPF)
--- OUTSIDE RECORDS SUMMARY | 2016-11-16 13:00 | XMS REPORT | Continuity of Care Document ---
Author Author [facility] Organization [facility] Address Unknown Phone Unavailable Support Name Relationship Address Phone LONNY SEO MD Caregiver [address] [place] [address] SARBJIT MONTE MD Caregiver [address] [place], [place] [phone] DEBRAFADY BAUTISTA Next Of Kin [address] [place], [place] [id number] Insurance Providers Payer Name Policy Number Subscriber [...] F (96.8 - 99.1) Temperature (Calculated Celsius) 36.97738 degrees C (36.0 - 37.3) Pulse Rate [...] Has specimen been collected/obtained? Y Urine Specific [place] March 10, 2014 7:28pm >=1.030 H - [...] Report February 27, 2014 4:08am REFERENCE LAB [id number] - Anti-Nuclear Antibody (LAB) March 01, 2008 [...] 2008 11:38am Name: TROY AVILES Unit #: [id number] : 1985 Sex: F Loc / Svc: ED DOS: Signed Report #: [id number] DIAGNOSTIC IMAGING REPORT TYPE OF EXAM: KUB [...] ADDON completed 02/27/14 TX/PRO/DX INJ SAME DRUG INDUSTRIAL DIAMOND POLISHER completed 02/27/14 HYDRATE IV INFUSION ADD-ON completed 02/27/14 THER/PROPH/DIAG INJ IV PUSH completed 03/10/14 TX/PRO/DX INJ NEW DRUG ADDON completed 03/10/14 TX/PRO/DX INJ SAME DRUG INDUSTRIAL DIAMOND POLISHER completed 03/10/14 HYDRATE IV INFUSION ADD-ON completed 03/10/14 Encounters Encounter Location Date/Time Departed Emergency Room [facility] 04/28/14 2:47pm Departed Emergency Room [facility] 03/10/14 5:24pm Departed Emergency Room [facility] 02/27/14 12:25am Departed Emergency Room [facility] 02/07/14 10:36am Recent Diagnosis
--- OUTSIDE RECORDS SUMMARY | 2016-11-16 13:00 | XMS REPORT | Continuity of Care Document ---
Author Author [facility] Organization [facility] Address Unknown Phone Unavailable Support Name Relationship Address Phone BEULAH LOUIS MD Caregiver [facility] [address] [place] [address] Unavailable SARBJIT MONTE MD Caregiver [address] [place] [phone] TORO SIMMONS Next Of Kin [address] [place] [address] Insurance Providers Payer Name Policy Number Subscriber [...] F (96.8 - 99.1) Temperature (Calculated Celsius) 36.71129 degrees C (36.0 - 37.3) Pulse Rate [...] Has specimen been collected/obtained? Y Urine Specific [place] September 19, 2014 1:07am >=1.030 H - [...] 3:40pm Name: AVILESROSA ELENATROY A Unit #: [id number] : 1985 Sex: F Loc / Svc: ED DOS: 08/28/14 Signed Report #: [id number] DIAGNOSTIC IMAGING REPORT TYPE OF EXAM: CHEST, [...] ADDON completed 07/30/14 TX/PRO/DX INJ SAME DRUG CHIEF MEDICAL PHYSICIST completed 07/30/14 HYDRATE IV INFUSION ADD-ON completed [...] Encounters Encounter Location Date/Time Departed Emergency Room [facility] 09/19/14 12:32am Departed Emergency Room [facility] 08/28/14 9:36am Departed Emergency Room [facility] 08/19/14 7:04pm Departed Emergency Room [facility] 07/30/14 9:52pm Departed Emergency Room [facility] 07/23/14 11:53am Departed Emergency Room [facility] 07/15/14 3:56pm Recent Diagnosis
--- OUTSIDE RECORDS SUMMARY | 2016-11-16 13:00 | XMS REPORT | Continuity of Care Document ---
Author Author [facility] Organization [facility] Address Unknown Phone Unavailable Support Name Relationship Address Phone IRENE TURCIOS Caregiver [facility] [address] [facility] [address] [place] [address] JULIAN LE MD Caregiver [address] [place] [address] [place] [phone] FADY AGUIAR Next Of Kin [address] [place] [address] Insurance Providers Payer Name Policy [...] F (96.8 - 99.1) Temperature (Calculated Celsius) 36.56355 degrees C (36.0 - 37.3) Pulse Rate [...] Has specimen been collected/obtained? Y Urine Specific [place] March 10, 2014 7:28pm >=1.030 H - [...] Report February 27, 2014 4:08am REFERENCE LAB [id number] - Anti-Nuclear Antibody (LAB) March 01, 2008 [...] 2008 11:38am Name: TROY AVILES Unit #: [id number] : 1985 Sex: F Loc / Svc: ED DOS: Signed Report #: [id number] DIAGNOSTIC IMAGING REPORT TYPE OF EXAM: KUB [...] ADDON completed 02/27/14 TX/PRO/DX INJ SAME DRUG COOKING CASING AND DRYING SUPERVISOR completed 02/27/14 HYDRATE IV INFUSION ADD-ON completed 02/27/14 Encounters Encounter Location Date/Time Departed Emergency Room [facility] 03/10/14 5:24pm Departed Emergency Room [facility] 02/27/14 12:25am Departed Emergency Room [facility] 02/07/14 10:36am Departed Emergency Room [facility] 01/05/14 7:51pm Recent Diagnosis
--- OUTSIDE RECORDS SUMMARY | 2016-11-16 13:01 | XMS REPORT | Continuity of Care Document ---
Author Author [facility] Organization [facility] Address Unknown Phone Unavailable Support Name Relationship Address Phone BEULAH LOUIS MD Caregiver [facility] [address] [place] [address] Unavailable SARBJIT MONTE MD Caregiver [address] [place] [address] [phone] TORO SIMMONS Next Of Kin [address] [place] [address] Insurance Providers Payer Name Policy Number Subscriber [...] F (96.8 - 99.1) Temperature (Calculated Celsius) 36.63905 degrees C (36.0 - 37.3) Pulse Rate [...] Report July 29, 2014 4:27pm REFERENCE LAB [id number] - Lipase August 19, 2014 9:06pm 273 [...] Has specimen been collected/obtained? Y Urine Specific [place] August 19, 2014 9:42pm 1.010 L - [...] 2014 3:40pm Name: TROY AVILES Unit #: [id number] : 1985 Sex: F Loc / Svc: ED DOS: 07/30/14 Signed Report #: [id number] DIAGNOSTIC IMAGING REPORT TYPE OF EXAM: CHEST [...] ADDON completed 06/15/14 TX/PRO/DX INJ SAME DRUG DISTRICT WILDLIFE MANAGER completed 06/15/14 HYDRATE IV INFUSION ADD-ON [...] ADDON completed 07/30/14 TX/PRO/DX INJ SAME DRUG DISTRICT WILDLIFE MANAGER completed 07/30/14 Encounters Encounter Location Date/Time Departed Emergency Room [facility] 08/19/14 7:04pm Departed Emergency Room [facility] 07/30/14 9:52pm Departed Emergency Room [facility] 07/23/14 11:53am Departed Emergency Room [facility] 07/15/14 3:56pm Departed Emergency Room [facility] 06/15/14 4:17pm Departed Emergency Room [facility] 06/08/14 5:33pm Recent Diagnosis
--- OUTSIDE RECORDS SUMMARY | 2016-11-16 13:01 | XMS REPORT | Continuity of Care Document ---
Author Author [facility] Organization [facility] Address Unknown Phone Unavailable Support Name Relationship Address Phone JULIAN LE MD [address] [place] [phone] YESIKA AVILES Next Of Kin [address] [place] [address] Insurance Providers Payer Name Policy Number Subscriber [...] F (96.8 - 99.1) Temperature (Calculated Celsius) 36.38443 degrees C (36.0 - 37.3) Pulse Rate [...] Has specimen been collected/obtained? Y Urine Specific [place] February 07, 2014 11:10am 1.020 - Has [...] 2008 11:38am Name: TROY AVILES Unit #: [id number] : 1985 Sex: F Loc / Svc: ED DOS: Signed Report #: [id number] DIAGNOSTIC IMAGING REPORT TYPE OF EXAM: KUB [...] Encounters Encounter Location Date/Time Registered Emergency Room [facility] 02/07/14 10:36am Departed Emergency Room [facility] 01/05/14 7:51pm Recent Diagnosis
--- OUTSIDE RECORDS SUMMARY | 2016-11-16 13:01 | XMS REPORT | Continuity of Care Document ---
Author Author [facility] Organization [facility] Address Unknown Phone Unavailable Support Name Relationship Address Phone NEO, SHAMA Caregiver [facility] [address] [phone] SARBJIT MONTE MD Caregiver [address] [place] [address] [phone] TORO SIMMONS Next Of Kin [address] [place] [address] Insurance Providers Payer Name Policy Number Subscriber [...] F (96.8 - 99.1) Temperature (Calculated Celsius) 36.77491 degrees C (36.0 - 37.3) Pulse Rate [...] Has specimen been collected/obtained? Y Urine Specific [place] June 15, 2014 5:15pm >=1.030 H - [...] Report February 27, 2014 4:08am REFERENCE LAB [id number] - Anti-Nuclear Antibody (LAB) March 01, 2008 [...] 2014 3:40pm Name: TROY AVILES Unit #: [id number] : 1985 Sex: F Loc / [facility] [place]: [place] DOS: 06/15/14 Signed Report #: [id number] DIAGNOSTIC IMAGING REPORT TYPE OF EXAM: CT [...] ADDON completed 06/15/14 TX/PRO/DX INJ SAME DRUG CASHIER PAYMENTS RECEIVED completed 06/15/14 Encounters Encounter Location Date/Time Departed Emergency Room [facility] 07/15/14 3:56pm Departed Emergency Room [facility] 06/15/14 4:17pm Departed Emergency Room [facility] 06/08/14 5:33pm Departed Emergency Room [facility] 05/17/14 11:22pm Departed Emergency Room [facility] 05/01/14 6:45pm Departed Emergency Room [facility] 04/28/14 2:47pm Recent Diagnosis
--- OUTSIDE RECORDS SUMMARY | 2016-11-16 13:01 | XMS REPORT | Continuity of Care Document ---
Author Author [facility] Organization [facility] Address Unknown Phone Unavailable Support Name Relationship Address Phone SARBJIT MONTE MD Caregiver [address] [place] [phone] PUJA DEWEY MD Caregiver [address] [place] [phone] [facility] FADY Next Of Kin [address] [place] [address] Insurance Providers Payer Name Policy [...] F (96.8 - 99.1) Temperature (Calculated Celsius) 35.00429 degrees C (36.0 - 37.3) Pulse Rate [...] Has specimen been collected/obtained? Y Urine Specific [place] March 10, 2014 7:28pm >=1.030 H - [...] Report February 27, 2014 4:08am REFERENCE LAB [id number] - Anti-Nuclear Antibody (LAB) March 01, 2008 [...] ADDON completed 02/27/14 TX/PRO/DX INJ SAME DRUG INVESTIGATOR FRAUD completed 02/27/14 HYDRATE IV INFUSION ADD-ON completed 02/27/14 THER/PROPH/DIAG INJ IV PUSH completed 03/10/14 TX/PRO/DX INJ NEW DRUG ADDON completed 03/10/14 TX/PRO/DX INJ SAME DRUG INVESTIGATOR FRAUD completed 03/10/14 HYDRATE IV INFUSION ADD-ON completed 03/10/14 DRAINAGE OF SKIN ABSCESS completed 05/01/14 SHAMA LARSON DO Encounters Encounter Location Date/Time Departed Emergency Room [facility] 05/17/14 11:22pm Departed Emergency Room [facility] 05/01/14 6:45pm Departed Emergency Room [facility] 04/28/14 2:47pm Departed Emergency Room [facility] 03/10/14 5:24pm Departed Emergency Room [facility] 02/27/14 12:25am Recent Diagnosis
--- OUTSIDE RECORDS SUMMARY | 2016-11-16 13:02 | XMS REPORT ---
Author Author [facility] - Organization Unknown Address Unknown [...] (5.0-8.0 ) Protein Negative (Negative ) Specific [place] 1.016 (1.003-1.030 ) Collection Type: Clean Catch Urobilinogen Negative mg/dL (-<1.0 mg/dL)
--- OUTSIDE RECORDS SUMMARY | 2016-11-16 13:02 | XMS REPORT | Continuity of Care Document ---
Author Author [facility] Organization [facility] Address Unknown Phone Unavailable Support Name Relationship Address Phone LEVAR SEO MD Caregiver [address] [place] [phone] SARBJIT MONTE MD Caregiver [address] [place] [phone] TORO SIMMONS Next Of Kin [address] [place], [place] [id number] Insurance Providers Payer Name Policy Number Subscriber [...] F (96.8 - 99.1) Temperature (Calculated Celsius) 36.81328 degrees C (36.0 - 37.3) Pulse Rate [...] Has specimen been collected/obtained? Y Urine Specific [place] June 15, 2014 5:15pm >=1.030 H - [...] Report February 27, 2014 4:08am REFERENCE LAB [id number] - Anti-Nuclear Antibody (LAB) March 01, 2008 [...] Encounters Encounter Location Date/Time Departed Emergency Room [facility] 06/15/14 4:17pm Departed Emergency Room [facility] 06/08/14 5:33pm Departed Emergency Room [facility] 05/17/14 11:22pm Departed Emergency Room [facility] 05/01/14 6:45pm Departed Emergency Room [facility] 04/28/14 2:47pm Recent Diagnosis
--- OUTSIDE RECORDS SUMMARY | 2016-11-16 13:02 | XMS REPORT | Continuity of Care Document ---
Author Author [facility] Organization [facility] Address Unknown Phone Unavailable Support Name Relationship Address Phone NEOSHAMA BAGLEY Caregiver [facility] [address] [place], [place] [phone] SARBJIT MONTE MD Caregiver [address] [place], [place] [phone] DEBRADAVIDE BAUTISTAAE Next Of Kin [address] [place] [address] Insurance Providers Payer Name Policy Number Subscriber [...] F (96.8 - 99.1) Temperature (Calculated Celsius) 36.65180 degrees C (36.0 - 37.3) Pulse Rate [...] Has specimen been collected/obtained? Y Urine Specific [place] March 10, 2014 7:28pm >=1.030 H - [...] Report February 27, 2014 4:08am REFERENCE LAB [id number] - Anti-Nuclear Antibody (LAB) March 01, 2008 [...] 2014 3:40pm Name: TROY AVILES Unit #: [id number] : 1985 Sex: F Loc / Svc: ED DOS: Signed Report #: [id number] DIAGNOSTIC IMAGING REPORT TYPE OF EXAM: KUB [...] ADDON completed 02/27/14 TX/PRO/DX INJ SAME DRUG PLASTICS PLATER completed 02/27/14 HYDRATE IV INFUSION ADD-ON completed 02/27/14 THER/PROPH/DIAG INJ IV PUSH completed 03/10/14 TX/PRO/DX INJ NEW DRUG ADDON completed 03/10/14 TX/PRO/DX INJ SAME DRUG PLASTICS PLATER completed 03/10/14 HYDRATE IV INFUSION ADD-ON completed 03/10/14 Encounters Encounter Location Date/Time Departed Emergency Room [facility] 05/01/14 6:45pm Departed Emergency Room [facility] 04/28/14 2:47pm Departed Emergency Room [facility] 03/10/14 5:24pm Departed Emergency Room [facility] 02/27/14 12:25am Departed Emergency Room [facility] 02/07/14 10:36am Recent Diagnosis
--- OUTSIDE RECORDS SUMMARY | 2016-11-16 13:07 | XMS REPORT | Continuity of Care Document ---
Author Author [facility] Organization [facility] Address Unknown Phone Unavailable Support Name Relationship Address Phone SARBJIT MONTE MD Caregiver [address] [place] [phone] JULIAN LE MD Caregiver [address] [place] [phone] TORO SIMMONS Next Of Kin [address] [place], [place] [id number] Insurance Providers Payer Name Policy Number Subscriber [...] F (96.8 - 99.1) Temperature (Calculated Celsius) 36.81257 degrees C (36.0 - 37.3) Pulse Rate [...] specimen been collected/obtained? 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
--- OUTSIDE RECORDS SUMMARY | 2016-11-16 13:08 | XMS REPORT | Continuity of Care Document ---
Author Author [facility] Organization [facility] Address Unknown Phone Unavailable Support Name Relationship Address Phone SARBJIT MONTE MD Caregiver [address] [place] [phone] PUJA DEWEY MD Caregiver [address] [phone] TORO SIMMONS Next Of Kin [address] [place], [place] [id number] Insurance Providers Payer Name Policy Number Subscriber [...] F (96.8 - 99.1) Temperature (Calculated Celsius) 36.98156 degrees C (36.0 - 37.3) Pulse Rate [...] Report July 29, 2014 4:27pm REFERENCE LAB [id number] - Lipase August 19, 2014 9:06pm 273 [...] Has specimen been collected/obtained? Y Urine Specific [place] August 19, 2014 9:42pm 1.010 L - [...] 2014 3:40pm Name: TROY AVILES Unit #: [id number] : 1985 Sex: F Loc / Svc: ED DOS: 08/28/14 Signed Report #: [id number] DIAGNOSTIC IMAGING REPORT TYPE OF EXAM: CHEST, [...] ADDON completed 06/15/14 TX/PRO/DX INJ SAME DRUG ONLINE JOURNALIST completed 06/15/14 HYDRATE IV INFUSION ADD-ON completed [...] ADDON completed 07/30/14 TX/PRO/DX INJ SAME DRUG ONLINE JOURNALIST completed 07/30/14 Encounters Encounter Location Date/Time Departed Emergency Room [facility] 08/28/14 9:36am Departed Emergency Room [facility] 08/19/14 7:04pm Departed Emergency Room [facility] 07/30/14 9:52pm Departed Emergency Room [facility] 07/23/14 11:53am Departed Emergency Room [facility] 07/15/14 3:56pm Departed Emergency Room [facility] 06/15/14 4:17pm Departed Emergency Room [facility] 06/08/14 5:33pm Recent Diagnosis
--- OUTSIDE RECORDS SUMMARY | 2016-11-16 13:09 | XMS REPORT | Continuity of Care Document ---
Author Author [facility] Organization [facility] Address Unknown Phone Unavailable Support Name Relationship Address Phone SARBJIT MONTE MD Caregiver [address] [place] [phone] PUJA DEWEY MD Caregiver [address] [facility] [place] [phone] TORO SIMMONS Next Of Kin [address] [place], [place] [id number] Insurance Providers Payer Name Policy Number Subscriber [...] F (96.8 - 99.1) Temperature (Calculated Celsius) 36.10150 degrees C (36.0 - 37.3) Pulse Rate [...] Has specimen been collected/obtained? 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
--- OUTSIDE RECORDS SUMMARY | 2016-11-16 13:11 | XMS REPORT | Continuity of Care Document ---
Author Author [facility] Organization [facility] Address Unknown Phone Unavailable Support Name Relationship Address Phone SARBJIT MONTE MD Caregiver [address] [place] [phone] PUJA DEWEY MD Caregiver [address] [place] [phone] TORO SIMMONS Next Of Kin [address] [place], [place] [id number] Insurance Providers Payer Name Policy Number Subscriber [...] F (96.8 - 99.1) Temperature (Calculated Celsius) 36.72231 degrees C (36.0 - 37.3) Pulse Rate [...] Report July 29, 2014 4:27pm REFERENCE LAB [id number] - Lipase July 23, 2014 12:13pm 77 [...] Has specimen been collected/obtained? 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 PRODUCTION WORKER completed 06/15/14 HYDRATE IV INFUSION ADD-ON completed 07/23/14 THER/PROPH/DIAG INJ IV PUSH completed 07/23/14 TX/PRO/DX INJ NEW DRUG ADDON completed 07/23/14 TX/PRO/DX INJ NEW DRUG ADDON completed 07/23/14 TX/PRO/DX INJ NEW DRUG ADDON completed 07/23/14 TX/PRO/DX INJ NEW DRUG ADDON completed 07/23/14 TX/PRO/DX INJ NEW DRUG ADDON completed 07/23/14 Encounters Encounter Location Date/Time Registered Emergency Room [facility] 07/30/14 9:52pm Departed Emergency Room [facility] 07/23/14 11:53am Departed Emergency Room [facility] 07/15/14 3:56pm Departed Emergency Room [facility] 06/15/14 4:17pm Departed Emergency Room [facility] 06/08/14 5:33pm Departed Emergency Room [facility] 05/17/14 11:22pm Recent Diagnosis
--- OUTSIDE RECORDS SUMMARY | 2016-11-16 13:12 | XMS REPORT | Continuity of Care Document ---
Author Author [facility] Organization [facility] Address Unknown Phone Unavailable Support Name Relationship Address Phone BEULAH LOUIS MD Caregiver [address] [place] [address] Unavailable FADY AGUIAR Next Of Kin [address] [place] [address] Insurance Providers Payer Name Policy Number Subscriber [...] F (96.8 - 99.1) Temperature (Calculated Celsius) 36.66881 degrees C (36.0 - 37.3) Pulse Rate [...] Has specimen been collected/obtained? Y Urine Specific [place] February 07, 2014 11:10am 1.020 - Has [...] 2008 11:38am Name: TROY AVILES Unit #: [id number] : 1985 Sex: F Loc / Svc: ED DOS: Signed Report #: [id number] DIAGNOSTIC IMAGING REPORT TYPE OF EXAM: KUB [...] Encounter Location Date/Time Registered Emergency Room [facility] 02/27/14 12:25am Departed Emergency Room [facility] 02/07/14 10:36am Departed Emergency Room [facility] 01/05/14 7:51pm Recent Diagnosis
--- OUTSIDE RECORDS SUMMARY | 2016-11-16 13:12 | XMS REPORT | Continuity of Care Document ---
Author Author [facility] Organization [facility] Address Unknown Phone Unavailable Support Name Relationship Address Phone BEULAH LOUIS MD Caregiver [facility] [address] [place] [address] Unavailable DAXA FLOWERS II, MD Caregiver [address] [place] [address] [phone] IRENE TURCIOS Caregiver [facility] [address] [facility] [address] [place] [address] YESIKA AVILES Next Of Kin [address] [id number] Insurance Providers Payer Name Policy Number Subscriber [...] F (96.8 - 99.1) Temperature (Calculated Celsius) 36.44486 degrees C (36.0 - 37.3) Pulse Rate [...] Has specimen been collected/obtained? Y Urine Specific [place] January 05, 2014 9:50pm 1.015 - Has [...] Encounters Encounter Location Date/Time Departed Emergency Room [facility] 01/05/14 7:51pm Recent Diagnosis
--- OUTSIDE RECORDS SUMMARY | 2016-11-16 13:12 | XMS REPORT | Continuity of Care Document ---
Author Author [facility] Organization [facility] Address Unknown Phone Unavailable Support Name Relationship Address Phone LEVAR SEO MD Caregiver [address] [place] [address] SARBJIT MONTE MD Caregiver [address] [place] [phone] TORO SIMMONS Next Of Kin [address] [place], [place] [phone] Insurance Providers Payer Name Policy Number Subscriber [...] F (96.8 - 99.1) Temperature (Calculated Celsius) 36.98738 degrees C (36.0 - 37.3) Pulse Rate [...] 24, 2014 7:34pm 4.8 % N 0-9.0 KP-Bqy-T-Type Natriuretic Peptide September 24, 2014 7:34pm 38 [...] Has specimen been collected/obtained? 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
[2016-11-16 13:24] LABS: BASOPHILS % (AUTO) 0.3 % (0-2); EOSINOPHILS # (AUTO) 0.1 T/MM3 (0-0.5); EOSINOPHILS % (AUTO) 0.4 % (0-4); HCT - HEMATOCRIT 40.2 % (36-46); HGB - HEMOGLOBIN 13.4 GM/DL (12-16); IMMATURE GRANULOCYTE # (AUTO) 0.02 T/MM3 (0.00-0.03); IMMATURE GRANULOCYTE % (AUTO) 0.1 % (0.0-0.5); LYMPHOCYTES # (AUTO) 2.4 T/MM3 (1-4.8); LYMPHOCYTES % (AUTO) 18.3 % (23-45); MEAN CORPUSCULAR HGB 29.2 UUG (26-34); MEAN CORPUSCULAR HGB CONC(MCHC 33.3 GM/DL (31-37); MEAN CORPUSCULAR VOLUME 87.6 UM3 (80-100); MEAN PLATELET VOLUME 9.4 UM3 (9.4-12.4); MONOCYTES # (AUTO) 0.4 T/MM3 (0-0.8); MONOCYTES % (AUTO) 3.1 % (0-9.0); NEUTROPHILS #(AUTO)-ABSOLUTE 10.4 T/MM3 (1.8-7.7); NEUTROPHILS % (AUTO) 77.8 % (33-66); RED BLOOD COUNT 4.59 M/MM3 (4.00-5.20); WBC - WHITE BLOOD COUNT 13.3 T/MM3 (4.5-11.0)
[2016-11-16 13:36] LABS: ALBUMIN/GLOBULIN RATIO 1.9 RATIO (1.1-2.2); ALKALINE PHOSPHATASE 79 U/L (38-126); ALT (SGPT) 33 U/L (9-52); ANION GAP 14 MEQ/L (5-15); AST (SGOT) 17 U/L (14-36); BUN/CREATININE RATIO 14 RATIO (6-26); CHLORIDE 111 MEQ/L (98-107); CO2 - CARBON DIOXIDE 21 MEQ/L (22-30); CREATININE 0.8 MG/DL (0.7-1.2); GLOMERULAR FILTRATION RATE 83; GLUCOSE 106 MG/DL (65-110); POTASSIUM 3.9 MEQ/L (3.6-5); SODIUM 146 MEQ/L (134-144); TOTAL PROTEIN 7.7 G/DL (6.3-8.2)
[2016-11-16 13:44] LABS: BLOOD, URINE 3+ (NEGATIVE); COLOR,URINE AMBER (YELLOW); LEUKOCYTE ESTERASE ,URINE NEGATIVE (NEGATIVE); NITRITE,URINE NEGATIVE (NEGATIVE); UROBILINOGEN,URINE 0.2 EU/DL (NORMAL)
--- NOTE | 2016-11-16 13:47 | DI ---
INDICATION: ITS.REASON: chest pain PROCEDURE: CHEST 2-VIEWS UPRIGHT (PA \T\ LAT) Encounter: Initial COMPARISON: November 01, 2016 FINDINGS: The lungs are clear without evidence of focal abnormal airspace opacity. There is no pleural effusion or pneumothorax. The heart size, mediastinal contours and pulmonary vascularity are within normal limits. There is no significant skeletal abnormality. IMPRESSION: No acute cardiopulmonary disease. .
[2016-11-16] MEDS ORDERED: BIOT300T2 PO (13:49)
[2016-11-16] MEDS ORDERED: ACET-62 PO (13:49)
[2016-11-16 13:52] LABS: RBC,URINE TNTC /HPF (0-3); WBC,URINE 0-1 /HPF (0-5)
[2016-11-16 13:53] LABS: BACTERIA,URINE TRACE (NEGATIVE); MUCUS,URINE PRESENT
--- NOTE | 2016-11-16 14:42 | NUR ---
ED CM CONSULT THIS WORKER MET WITH PT IN EMERGENCY ROOM. PT RECALLED THIS WORKER FROM PREVIOUS VISITS. ALSO PRESENT WAS PT'S GIRLFRIEND, TORO. THIS WORKER REVIEWED OPTIONS FOR CONTINUED FOLLOW UP CARE. PT REPORTED THAT SHE HAS BEEN FOLLOWING UP WITH DR. FLOWERS, BUT NOW THAT SHE DOESN'T HAVE INSURANCE SHE CAN'T GO AND SEE HIM. THIS WORKER OFFERED TO ASSIST IN SETTING UP SERVICES WITH [facility]. PT DECLINED AND THAT SHE WOULD ONLY WANT TO SEE DR. FLOWERS. PT REPORTED THAT SHE HAS A 12 MONTH REFILL ON ANTI-DEPRESSANT, BUT IS OUT OF ANXIETY MEDICATION. PT REPORTED SEVERAL STRESSORS IN HER LIFE (MAINLY FINANCIAL). PT DECLINED ANY ASSISTANCE FROM THIS WORKER IN SETTING UP FOLLOW UP SERVICES. PT REPORTED THAT SHE HAS BEEN MAINLY GOING TO THE THE EMERGENCY DEPARTMENT IN [place] (LAST VISIT BEING 2 DAYS AGO). THIS WORKER ENCOURAGED PT TO CONTACT THIS WORKER WITH ANY NEEDS. PT WAS THANKFUL FOR THIS WORKER'S VISIT. Addendum: 11/16/16 at 1454 by TOÑITO TEIXEIRA Amended: Links added.
--- NOTE | 2016-11-16 15:05 | ERPDOC ---
Departure Disposition Decision Date: November 16, 2016 Disposition Decision Time: 15:09 Disposition: 01 DISCHARGED HOME, SELF-CARE Impression Impression Impression: Primary Impression: Chest pain Additional Impressions: Anxiety Chronic abdominal pain Severity: Moderate Condition: Stable Seen By: Physician only Referrals: DAXA DAMIAN II, MD (Family) Patient Instructions: Chest Pain (ED) Problems/Meds/Labs Reviewed?: Yes Medications reviewed and manag: Yes Additional Instructions: Please follow up with her primary care provider. Follow up care ordered?: Yes Mental Status: Alert, Oriented HPI - Cardiac General Chief Complaint: Chest Pain Stated Complaint: CHEST PAINS ELEPHANT ON CHEST Time Seen by Provider: 12:42 HPI - Cardiac General Initial Comments 31-year-old female presents with chest pain. Patient states she was like an office sitting on her chest. She is very dramatic and she is being brought back to the trauma bay. She is crying and breathing very hard. She has had multiple visits to the emergency department for pain and anxiety. [facility] but she doesn't feel like they treated her pain. She 's been asking Dr. Damian to treat her for free, but has not heard back yet. She denies fever or chills, states that the chest pain is central in her chest and that she thinks she had a nervous breakdown that that causes it today. She is worried about her heart having trouble because the nervous breakdown and worries that she is having heart attack. She needs Ativan and something for pain to manage this. Aspirin Today: 81 mg x 4 Allergies: Coded Allergies: peanut oil (Verified Allergy, Severe, ANAPHYLACTIC REACTION, 11/16/16) tomato (Verified Allergy, Unknown, 11/16/16) ketorolac (Verified Adverse Reaction, Intermediate, ULCERS/INCREASED BLEEDING, 11/16/16) ibuprofen (Verified Adverse Reaction, Mild, BLEEDING, 11/16/16) NOSE BLEED Past History Patient Surgical History Csection BTL T&A Colonoscopy 2015 Past Medical History Cardiac: A-fib Respiratory: asthma GI: ulcerative colitis Neurological: headaches, migraines Psychological: anxiety, drug abuse Surgical History General: colonoscopy, tonsils Reproductive/: , tubal ligation Joint: shoulder Family History Family PMH: FOUND: [place], cancer, diabetes, hypertension Vaccines Hx Influenza Vaccination: Yes (MAY 2016) Hx Pneumococcal Vaccination: No Hx Tetanus, Diptheria, Pertuss: Yes (2011) Social History Smoking Status: Current every day smoker # of Packs/Tins per Day: 0.5 Substance Use Type: does not use Alcohol Intake: none Marital Status: Single Sexuality: female partner Current Occupational Status: employed Record Review Pertinent history updated: Yes Review of Systems Cardiovascular Cardiac: see HPI Psychiatric Psychiatric: see HPI All other Systems All Other Systems: Reviewed and Negative Physical Exam General General Nourishment: well nourished, well developed, appears stated age, acute distress Distress Description Crying very loudly in regards to her pain. Vitals and Pain First Documented Vital Signs Date Time Temp Pulse Resp B/P Pulse Ox O2 Delivery O2 Flow Rate FiO2 11/16/16 12:41 98.2 78 42 134/77 100 Room Air Weight: Kilograms: 82.900 Height (feet): 5 Height (inches): 7.00 Triage Pain Scale: Normal Exams: Head: Normocephalic w/o trauma Chest/Resp: Clear all cuevas, with good airflow, and symmetry bilaterally CV: Regular rate and rhythm, without murmur or gallop, Pulses 2+ all extremities, capillary refill, <2 seconds all ext., no pedal edema noted Abdomen: Bowel sounds positive, soft, non-tender, non-distended, no hepatosplenomegaly, masses or bruits noted Neurologic: Patient is alert, and oriented, cranial nerves, motor/sensory/ cerebellar, exams w/o gross deficits, to observation Differential Diagnoses Considering: Acute PR, Anxiety/Panic, Angina, Hyperventilation, Pericarditis, Pulmonary Edema, Pulmonary Embolus, Ventricular Tachycardia Progress Results/Orders Orders Procedure Category Date Status Time Cbc W/Auto LAB 11/16/16 Complete Diff-Reflex Manual 12:56 Cmp - Comprehensive LAB 11/16/16 Complete Metabolic 12:56 Troponin I W LAB 11/16/16 Complete Hemolysis Index 12:56 EKG EKG 11/16/16 Taken 12:56 Chest, Pa & Lateral RAD 11/16/16 Resulted 12:56 Iv Lock (Ed Only) EDM 11/16/16 Transmitted 12:56 Normal Saline (Normal PHA 11/16/16 Complete Saline Iv) 12:56 Aspirin (Asa) PHA 11/16/16 Complete 13:00 Nitroglycerin PHA 11/16/16 In Process (Nitrostat) 13:00 Hydroxyzine (Vistaril) PHA 11/16/16 Complete 13:00 Orphenadrine (Norflex) PHA 11/16/16 Complete 13:00 UA, LAB 11/16/16 Complete Dip&Micro(Complete) & 13:30 Normal Saline (Normal PHA 11/16/16 In Process Saline Iv) 14:30 Hydromorphone PHA 11/16/16 Transmitted (Dilaudid) 15:15 Lab Results Laboratory Tests Test 11/16/16 13:18 11/16/16 13:30 White Blood Count 13.3T/MM3 Red Blood Count 4.59M/MM3 Hemoglobin 13.4GM/DL Hematocrit 40.2% Mean Corpuscular Volume 87.6UM3 Mean Corpuscular Hemoglobin 29.2UUG Mean Corpuscular Hemoglobin Concent 33.3GM/DL RDW Standard Deviation 43.7FL Platelet Count 380T/MM3 Mean Platelet Volume 9.4UM3 Immature Granulocyte % (Auto) 0.1% Neutrophils (%) (Auto) 77.8% Lymphocytes (%) (Auto) 18.3% Monocytes (%) (Auto) 3.1% Eosinophils (%) (Auto) 0.4% Basophils (%) (Auto) 0.3% Absolute Immature Granulocyte (auto 0.02T/MM3 Absolute Neutrophils (auto) 10.4T/MM3 Absolute Lymphocytes (auto) 2.4T/MM3 Absolute Monocytes (auto) 0.4T/MM3 Absolute Eosinophils (auto) 0.1T/MM3 Absolute Basophils (auto) 0.0T/MM3 Turbidity < 20 Sodium Level 146MEQ/L Potassium Level 3.9MEQ/L Chloride Level 111MEQ/L Carbon Dioxide Level 21MEQ/L Anion Gap 14MEQ/L Blood Urea Nitrogen 11.0MG/DL Creatinine 0.8MG/DL Glomerular Filtration Rate Calc 83 BUN/Creatinine Ratio 14RATIO Glucose Level 106MG/DL Calculated Osmolality 280MOSM/KG Calcium Level 10.0MG/DL Total Bilirubin 0.40MG/DL Icterus Index < 2 Aspartate Amino Transf (AST/SGOT) 17U/L Alanine Aminotransferase (ALT/SGPT) 33U/L Alkaline Phosphatase 79U/L Troponin I < 0.012ng/ml Total Protein 7.7G/DL Albumin 5.0G/DL Globulin 2.7G/DL Albumin/Globulin Ratio 1.9RATIO Chemistry Specimen Hemolysis < 15 Urine Collection Type Cleancatch-midstream Urine Color Ruth Urine Turbidity Sl cloudy Urine pH 6.0 Urine Specific [place] 1.025 Urine Protein Trace Urine Glucose (UA) Negative Urine Ketones Negative Urine Blood 3+ Urine Nitrite Negative Urine Bilirubin Negative Urine Urobilinogen 0.2EU/DL Urine Leukocyte Esterase Negative Urine RBC Tntc/HPF Urine WBC 0-1/HPF Urine Squamous Epithelial Cells 5-10 Urine Bacteria Trace Urine Mucus Present Urine Culture Indicated Cult not indicated Medications Current ED Medications Sodium Chloride (Normal Saline IV) 1,000 ml @ 1,000 mls/hr Q1H ONCE IV Last administered on 11/16/16 13:12; Start 11/16/16 at 12:56; Stop 11/16/16 at 13:55 ; Status DC Aspirin (ASA) 324 mg O ONCE PO ; Start 11/16/16 at 13:00; Stop 11/16/16 at 13: 01; Status DC Nitroglycerin (Nitrostat) 0.4 mg Q5MIN PRN SL CHEST PAIN; Start 11/16/16 at 13: 00 Hydroxyzine HCl (Vistaril) 50 mg O ONCE IM Last administered on 11/16/16 13: 17; Start 11/16/16 at 13:00; Stop 11/16/16 at 13:01; Status DC Orphenadrine Citrate 60 mg 60 mg O ONCE IV Last administered on 11/16/16 13: 13; Start 11/16/16 at 13:00; Stop 11/16/16 at 13:01; Status DC Sodium Chloride (Normal Saline IV) 1,000 ml @ 1,000 mls/hr Q1H ONCE IV Last administered on 11/16/16 14:35; Start 11/16/16 at 14:30; Stop 11/16/16 at 15:29 Progress Progress Patient was given 1 L normal saline IV, cardiac labs and EKG were ordered EKG returned normal, cardiac labs returned normal. I could not give her Toradol due to her allergy. Patient was given hydroxyzine 10 mg and Norflex 60 mg IV, but did not feel like that helped at all. She was very unhappy and argumentative about her need for medications. Nataliia from case management did come down and see her and gave her options and offers but the patient was not interested in those either. I did write her prescription for hydroxyzine for the anxiety and Ultram for her pain. She did have blood in her urine, she then started saying that she had more pain on the side than in her chest and that the pain radiated to her back. She also developed a headache as she was preparing to discharge. She refused the Ultram or hydroxyzine. She was given a total of 1.5 L normal saline through the IV. I did give her 0.5 mg Dilaudid IV at time of discharge. Recommend she follow up with outpatient physician BIBIANA KING MD November 16, 2016 15:05
[2016-11-16] MEDS ORDERED: HYDROMORPHONE 2mg/ml INJECTION IV ONE (15:15)
[2016-11-16 15:24] VITALS: BP 112/75; PULSE 83; RESP 16; TEMP 98.2; O2SAT 99
== END 2016-11-16 15:24 | disposition home or self-care (01) ==
LOC: ED 12:37
DX: R07.9 Chest pain, unspecified (principal); F41.9 Anxiety disorder, unspecified; R10.9 Unspecified abdominal pain; G89.29 Other chronic pain; R51 Headache; R31.9 Hematuria, unspecified
CPT/HCPCS: 80053; 81001; 84484; 85025; 93005; 96372